=== PATIENT | male | born 1980 | race Caucasian/White ===

== ENCOUNTER 2020-09-20 14:05 | Emergency (ER) | payer OTHER, SELFPAY ==
[2020-09-20 14:07] VITALS: BP 174/111; PULSE 124; RESP 20; TEMP 36.3; O2SAT 99
[2020-09-20 14:15] VITALS: PULSE 125; RESP 23; O2SAT 99
--- NOTE | 2020-09-20 14:27 | ED.URI ---
HPI - URI/Sore Throat General Chief Complaint: Upper Respiratory Infection Stated Complaint: sore throat Time Seen by Provider: 09/20/20 14:26 Source: patient Mode of arrival: ambulatory Limitations: no limitations History of Present Illness HPI Narrative: Patient is a 39-year-old male complaining of a sore throat and a blister on his tongue that started yesterday. Patient states that it hurts to swallow. Denies any lip, tongue, throat swelling. Patient states he is concerned for STD since he is had multiple partners for the past few weeks. Patient denies any chest pain, shortness of breath, abdominal pain, nausea, vomiting, fever, chills or night sweats. Related Data Allergies Allergy/AdvReac Type Severity Reaction Status Date / Time No Known Allergies Allergy Verified 09/20/20 14:15 Review of Systems Review of Systems: All systems reviewed & are unremarkable except as noted in HPI and below PMFSH Past Medical History Medical History Healthy adult Surgical History Surgical History No history of previous surgery Social History Social History Smoking status: Unknown if ever smoked Gender identity (if verbalized by the patient): Male Comments Past medical history: None Social history: Non-smoker no EtOH or drug use Family history: Noncontributory Exam Const: General: no acute distress and alert Orientation/consciousness: patient oriented x3 HENMT: Other: Patent airway. Erythematous swollen oropharyngeal area, tonsillar and uvular swelling. Positive for exudates. Course Vital Signs Vital signs: Vital Signs Temperature 36.3 C L 09/20/20 14:07 Pulse Rate 124 H 09/20/20 14:07 Respiratory Rate 20 09/20/20 14:07 Blood Pressure 174/111 H 09/20/20 14:07 Pulse Oximetry 99 09/20/20 14:07 Temperature 36.3 C L 09/20/20 14:07 Pulse Rate 125 H 09/20/20 14:15 Respiratory Rate 23 H 09/20/20 14:15 Blood Pressure 174/111 H 09/20/20 14:07 Pulse Oximetry 99 09/20/20 14:15 MDM - URI/Sore Throat Lab Data Labs: Strep Screen Presumptive Negative *(Reference Range: Negative)* Discharge Plan Discharge Clinical Impression: Exudative pharyngitis Patient Disposition: Home, Self-Care Condition: Stable Instructions: Pharyngitis (ED) Additional Instructions: Follow-up with your family doctor or the health department for STD testing Prescriptions: New methylprednisolone [Medrol (Edmond)] 4 mg tablets,dose pack See Rx Instructions PO .COMPLEX Qty: 21 RF: 0 penicillin V potassium 500 mg tablet 500 mg PO Q6H 7 Days Qty: 28 RF: 0 Follow-up/Referrals: Jordan Rosario MD [Primary Care Provider] - 09/22/20 Time of Disposition: 15:20
[2020-09-20 15:17] VITALS: BP 127/87; PULSE 130; RESP 29; O2SAT 96
[2020-09-20] MEDS: ACETAMINOPHEN 325 MG TABLET 650 MG PO (15:35)
[2020-09-20 15:46] VITALS: BP 127/87; PULSE 129; RESP 20; TEMP 38.6; O2SAT 98
== END 2020-09-20 15:47 | disposition home or self-care (01) ==
PROVIDERS: Emergency Provider Emergency Medicine; PCP Family Medicine
DX: J02.9 Acute pharyngitis, unspecified (principal)
CPT/HCPCS: 87081; 87147; 87880; 96372; 99283; A9270; J1100

== ENCOUNTER 2020-09-22 18:17 | Emergency (ER) | payer OTHER, SELFPAY ==
--- NOTE | 2020-09-22 18:33 | PC.NURSE ---
PT STATES HE WILL JUST COME BACK LATER WHEN IT'S NOT SO BUSY. I EXPLAINED THAT HE WILL HAVE TO BE REENTERED INTO THE SYSTEM FOR A NEW VISIT. UNDERSTANDING VERBALIZED. PT AMBULATORY FROM THE ED WITH A STEADY GAIT.
== END 2020-09-22 21:37 | disposition left against medical advice (07) ==
PROVIDERS: PCP Family Medicine
DX: Z53.21 Procedure and treatment not carried out due to patient leaving prior to being seen by health care provider (principal)
CPT/HCPCS: 99199

== ENCOUNTER 2020-09-23 11:40 | Emergency (ER) | payer OTHER, SELFPAY ==
--- NOTE | ~2020-09-23 | CT_ITS ---
EXAMINATION: CT soft tissue neck w con EXAM DATE: 09/23/2020 13:59 INDICATION: Sore throat. Peritonsillar abscess. TECHNIQUE: Spiral CT of the neck was performed following intravenous injection of 75 mL Omnipaque 350 . Axial, coronal and sagittal images were reviewed. The dose-length product (DLP) for this examinat ion was 500.93 mGy-cm. The exposure was tailored according to patient size (auto mA exposure control ), and iterative reconstruction (ASIR) was used as additional dose reduction technique. There is no prior study for comparison. FINDINGS: Both tonsils are enlarged and have striated enhancement pattern consistent with tonsillitis . No rim-enhancing drainable abscess identified. The thyroid gland is unremarkable. The submandibu lar and parotid glands are symmetric. There are enlarged bilateral internal jugular chain lymph nod es, largest on the right measuring 2.2 x 1.2 cm. These are probably reactive but clinical follow-up i s indicated. Incidental note made of focal round anterior mediastinal mass measuring 2.3 cm, soft tissue density, could be solid or proteinaceous fluid. It is well-circumscribed and homogeneous in density. Appearanc e more consistent with benign histology but differential diagnosis includes thymic residual, thymic c yst, thymoma, mediastinal teratoma, lymphoma or thymic carcinoma. The airway is unremarkable. Parapharyngeal and pre-glottic fat planes are preserved. The opacifie d vasculature is patent. Epiglottis is normal in thickness. Visualized sinuses and mastoid air cells are well aerated. Lung apices are clear. The bones are unremarkable. IMPRESSION: 1. Incidental well-defined anterior mediastinal mass, more likely benign than malignant finding. Pos sible histologies above. 2. Tonsillitis. No drainable abscess. 3. Cervical lymphadenopathy most likely reactive. Clinical follow-up to resolution. Reviewed, dictated and finalized at location B. IMPRESSION: 1. Incidental well-defined anterior mediastinal mass, more likely benign than malignant finding. Possible histologies above. 2. Tonsillitis. No drainable abscess. 3. Cervical lymphadenopathy most likely reactive. [facility].
[2020-09-23 11:44] VITALS: BP 121/89; PULSE 115; RESP 24; TEMP 37.3; O2SAT 99
[2020-09-23] MEDS: SODIUM CHLORIDE 0.9% IV 1,000 ML 150 ML IV CONT (12:15)
--- NOTE | 2020-09-23 12:41 | WPDCN ---
Assessment and Plan Assessment and plan (1) Exudative pharyngitis: Code(s): J02.9 - Acute pharyngitis, unspecified Status: Inactive Assessment and Plan: Patient must immediately begin antibiotics. I recommended a dose of IV antibiotics well as steroids in the ER. If The patient improves he can go home on p.o. antibiotics. I would recommend and always recommend clindamycin or Augmentin. if the patient is unable to obtain antibiotics which was his previous issue, I would recommend admission for IV antibiotics. 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 Please call with any questions and/or concerns. [phone] (2) Tonsillitis: Code(s): J03.90 - Acute tonsillitis, unspecified Status: Acute HPI Data of Consult Date/Time: 09/23/20 12:41 Primary Care Provider: Jordan Rosario MD Consult Narrative Narrative: Edwin Ruano is a 39 year old male With several days of throat pain. Reports to worsening. Unable to obtain antibiotics from previous ER visit several days ago. Presents for further evaluation treatment. Review of Systems Constitutional: Constitutional: Denies fatigue, Denies fever(s) and Denies lethargy Eyes: Eyes: Denies blurry vision and Denies change in vision ENT: Reports as per HPI Cardiovascular: Cardiovascular: Denies chest pain Respiratory: Respiratory: Denies cough Endocrine: Endocrine: Denies fatigue Hematologic/Lymphatic: Hematologic/Lymphatic: Denies easy bleeding, Denies easy bruising and Denies lymphadenopathy Allergic/Immunologic: Allergic/Immunologic: Denies seasonal rhinorrhea [facility] Past Medical History Medical History Healthy adult Surgical History Surgical History No history of previous surgery Social History Social History Smoking status: Unknown if ever smoked Gender identity (if verbalized by the patient): Male Meds Home Medications and Allergies Home Medications Medication Instructions Recorded Confirmed Type No Home Medications 09/23/20 09/23/20 History Allergies Allergy/AdvReac Type Severity Reaction Status Date / Time No Known Allergies Allergy Verified 09/23/20 11:48 Vital Signs Vital Signs - 24 hr 09/23/20 11:44 Temperature 37.3 C Pulse Rate 115 H Respiratory Rate 24 H Blood Pressure 121/89 Pulse Oximetry 99 Exam Const: General: cooperative, healthy appearing, comfortable, well developed and alert HENMT: Head: normal to inspection, normocephalic and atraumatic Ears: hearing grossly normal bilaterally, external ears normal, TM's normal bilaterally and EAC's normal General nose exam: Normal external nose present, Normal nares present, No nasal polyps present, Normal nasal mucous membranes and turbinates present and Normal septum present Face and sinus: normal facial exam Mouth: Yes Normal oral and palatal mucosa present, Yes lip normal and Yes tongue normal Teeth and gingiva: dentition normal and gingiva normal Other: Bilateral exudate of tonsillitis right soft palate minimal edema peritonsillar region minimal edema when compared to left uvula relatively midline. Eyes: General: appearance normal, both eyes and all related structures Periorbital: periorbital findings normal Eyelids: eyelids normal Conjunctivae: conjunctivae normal Sclera: sclerae normal Neck: Neck: normal visual inspection, full ROM and no lymphadenopathy Thyroid: thyroid normal Lymphatic: no lymphadenopathy noted Resp: Effort & Inspection: normal respiratory effort and able to speak in complete sentences Cardio: Jugular venous distension: no JVD Neuro: Cranial nerves: Yes CN's II-XII intact bilaterally
[2020-09-23 13:00] VITALS: BP 119/81; PULSE 113; RESP 20; O2SAT 98
[2020-09-23 13:47] LABS: Basophils Absolute Auto 0.1 K/mm3 (0.0-0.1); Basophils Percent Auto 0.4 % (0.2-1.2); Eosinophils Absolute Auto 0.1 K/mm3 (0-0.3); Eosinophils Percent Auto 1.1 % (0-4.4); Hematocrit 37.8 % (42.0-52.0); Hemoglobin 12.9 g/dL (14.0-18.0); Immature Granulocyte Absolute 0.06 K/mm3 (0.00-0.031); Immature Granulocyte Percent A 0.5 % (0-0.5); Lymphocytes Absolute Auto 1.92 K/mm3 (0.9-3.2); Lymphocytes Percent Auto 17.2 % (18.3-44.2); Mean Corpuscular HGB Conc 34.1 g/dl (32-36); Mean Corpuscular Hemoglobin 29.1 pg (26-34); Mean Corpuscular Volume 85.1 fl (80-100); Mean Platelet Volume 9.2 fl (7.4-10.4); Monocytes Absolute Auto 0.8 K/mm3 (0.1-0.6); Monocytes Percent Auto 6.8 % (2.6-8.5); Neutrophils Absolute Auto 8.2 K/mm3 (1.3-6.7); Platelet Count Result 233 k/mm3 (150-375); Red Blood Count 4.44 M/mm3 (4.6-6.20); Red Cell Distribution Width 13.1 % (11.5-14.5); White Blood Count 11.1 K/mm3 (4.5-10.0)
[2020-09-23 13:55] LABS: Estimated CRCL calculation 88 ml/min; Estimated Glomerular Filt Rate > 60
[2020-09-23 13:59] LABS: Alanine Aminotransferase 22 U/L (4-50); Albumin Level 3.6 g/dL (3.5-5.1); Alkaline Phosphatase 83 U/L (38-126); Anion Gap 10 mmol/L (8-16); Aspartate Amino Transferase 29 U/L (17-59); Bilirubin,Total 0.4 mg/dL (0.2-1.3); Blood Urea Nitrogen 15 mg/dL (9-20); Calcium 8.6 mg/dL (8.4-10.2); Carbon Dioxide 23 mmol/L (22-30); Chloride 100 mmol/L (98-107); Estimated CRCL calculation 97 ml/min; Estimated Glomerular Filt Rate > 60; Glucose 103 mg/dL (75-110); Potassium 3.5 mmol/L (3.4-5.0); Sodium 133 mmol/L (137-145)
[2020-09-23 14:16] VITALS: BP 129/78; O2SAT 97
[2020-09-23 14:30] VITALS: BP 114/71; O2SAT 98
--- NOTE | 2020-09-23 14:45 | ED.URI ---
HPI - URI/Sore Throat General Chief Complaint: Upper Respiratory Infection Stated Complaint: SORETHROAT Time Seen by Provider: 09/23/20 11:46 Source: patient Mode of arrival: EMS Limitations: no limitations History of Present Illness HPI Narrative: 39-year-old with no major medical problems brought in by ambulance with complaints of sore throat for past few days. Patient was seen here in the ER was diagnosed with strep pharyngitis and was given prescription however patient states that being a long weekend he was unable to fill his medications. He woke up this morning with severe pain. He denies any fever or chills. He is able to tolerate oral fluids. MD elicited complaint: sore throat Onset (ago): day(s) (2) Consistency: constant Severity: moderate Exacerbating factors: nothing Relieving factors: nothing Associated symptoms: denies other symptoms Related Data Home Medications Medication Instructions Recorded Confirmed No Home Medications 09/23/20 09/23/20 Allergies Allergy/AdvReac Type Severity Reaction Status Date / Time No Known Allergies Allergy Verified 09/23/20 11:48 Review of Systems Review of Systems: All systems reviewed & are unremarkable except as noted in HPI and below Constitutional: Constitutional: Reports no additional constitutional complaints Eyes: Eyes: Reports no additional eye complaints ENT: Reports as per HPI Cardiovascular: Cardiovascular: Reports no additional cardiovascular complaints Respiratory: Respiratory: Reports no additional respiratory complaints Gastrointestinal: Gastrointestinal: Reports no additional gastrointestinal complaints Musculoskeletal: Musculoskeletal: Reports no additional musculoskeletal complaints Integumentary/Breasts: Skin/Breast: Reports system reviewed and no additional complaints, except as docu Neurologic: Reports system reviewed and no additional complaints, except as documented PMFSH Past Medical History Medical History Healthy adult Surgical History Surgical History No history of previous surgery Social History Social History Smoking status: Unknown if ever smoked Gender identity (if verbalized by the patient): Male Exam Narrative: Exam Narrative: GENERAL: Well-appearing, well-nourished, and in no acute distress. HEAD: Normocephalic, atraumatic. EYES: PERRLA and EOMI. ENT: Nares clear, no rhinorrhea or epistaxis. Mucous membranes moist. Exudates on tonsils NECK: Supple. Cervical lymphadenopathy CHEST: Clear to auscultation. No respiratory distress. HEART: Regular rate and rhythm. No murmur heard. Normal peripheral pulses. ABDOMEN: Soft, nontender, nondistended, normal active bowel sounds. EXTREMITIES: Normal range of motion. No edema. SKIN: Warm, dry, no rash. NEURO: No focal deficits. Alert and oriented x3. PSYCH: Normal mood and affect. Course Course Emergency Course: Inform patient about his lab work, CT findings. IV Decadron and Rocephin were given in the ER. Patient states that he has prescriptions advised him to get the prescription filled at the pharmacy and start taking return to the ER if he is unable to swallow fluids or if there is increased pain and swelling. Vital Signs Vital signs: Vital Signs Temperature 37.3 C 09/23/20 11:44 Pulse Rate 115 H 09/23/20 11:44 Respiratory Rate 24 H 09/23/20 11:44 Blood Pressure 121/89 09/23/20 11:44 Pulse Oximetry 99 09/23/20 11:44 Temperature 37.3 C 09/23/20 11:44 Pulse Rate 113 H 09/23/20 13:00 Respiratory Rate 20 09/23/20 13:00 Blood Pressure 119/81 09/23/20 13:00 Pulse Oximetry 98 09/23/20 13:00 MDM - URI/Sore Throat Lab Data Result diagrams: 09/23/20 13:36 09/23/20 13:53 Labs: Lab Results 09/23/20 09/23/20 09/23/20 Range/Units 13:36 1
[2020-09-23 15:50] VITALS: BP 120/74; PULSE 78; RESP 18; TEMP 36.4; O2SAT 98
== END 2020-09-23 15:50 | disposition home or self-care (01) ==
PROVIDERS: Emergency Provider Family Medicine; PCP Family Medicine
DX: J03.90 Acute tonsillitis, unspecified (principal)
CPT/HCPCS: 36415; 70491; 80053; 85025; 96361; 96365; 96375; 99284; J0696; J1100; J7030; Q9967

== ENCOUNTER 2021-07-31 14:53 | Emergency (ER) | payer OTHER, SELFPAY ==
--- NOTE | ~2021-07-31 | XR_ITS ---
EXAMINATION: XR hand RT min 3V EXAM DATE: 07/31/2021 15:36 INDICATION: pt states he was digging around in a bag two weeks ago and was poked by an unknown object . pt now has a large sore/abscess on the top of his right hand around the 5th metacarpal area. TECHNIQUE: Right hand frontal, lateral and oblique projections obtained and reviewed. There is no pr ior study for comparison. FINDINGS: Right metacarpal bones are unremarkable. There are no acute fractures or dislocations iden tified. There is no subcutaneous gas. There is soft tissue swelling over the 5th metacarpal bone wit hout any underlying osseous erosion. There are no radiopaque foreign bodies. IMPRESSION: 1. No right hand foreign body or erosive change. 2. Soft tissue swelling. Reviewed, dictated and finalized at location A.
[2021-07-31 14:55] VITALS: BP 183/116; PULSE 102; RESP 18; TEMP 36.8; O2SAT 98
[2021-07-31] MEDS: LIDO 1%/EPINEPHRINE 1:100,000 10 ML VIAL (16:11)
--- NOTE | 2021-07-31 16:28 | ED.GENADULT ---
HPI - General Adult General Chief complaint: Skin/Abscess/Foreign Body Stated complaint: abcess Time Seen by Provider: 07/31/21 15:16 Source: patient Mode of arrival: ambulatory Limitations: no limitations History of Present Illness HPI narrative: Right hand pain and infection. Patient got poked by something inside a bag 2 weeks ago, subsequently started having pain and swelling at that area. Patient is not diabetic. Patient denies any fever, chills, nausea, vomiting. Last tetanus shot is 3 years ago Related Data Allergies Allergy/AdvReac Type Severity Reaction Status Date / Time No Known Allergies Allergy Verified 07/31/21 15:01 Review of Systems Review of Systems: CONSTITUTIONAL: Denies fever, chills, or sweats. EYES: Denies visual changes, redness, or discharge. ENT: Denies rhinorrhea, congestion, sore throat, or otalgia. CARDIOVASCULAR: Denies chest pain, palpitations, or edema. RESPIRATORY: Denies cough or dyspnea. GASTROINTESTINAL: Denies abdominal pain, nausea, vomiting, or diarrhea. GENITOURINARY: Denies dysuria or hematuria. SKIN: Denies rash or itching. MUSCULOSKELETAL: Denies back pain, joint pain, or myalgia. NEUROLOGIC: Denies headache, numbness, or weakness. PSYCHIATRIC: Denies anxiety or depression. PMFSH Past Medical History Medical History Healthy adult Surgical History Surgical History No history of previous surgery Social History Social History Smoking status: Unknown if ever smoked Gender identity (if verbalized by the patient): Male Exam Narrative: General appearance: Well-developed, well-nourished Skin: Normal color Head: Normocephalic, nontraumatic Eyes: Clear conjunctiva ENT: Oropharynx normal, ears normal, nose normal Neck: Supple, nontender Chest and respiratory: Airway patent, no respiratory distress, no accessory muscle use Heart: Regular rate/rhythm Abdomen: Soft, nontender, no organomegaly, quiet bowel sounds Vascular: Normal peripheral pulses, normal capillary refill. 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, no gross motor deficit Course Course Emergency Course: Stable Vital Signs Vital signs: Vital Signs Temperature 36.8 C 07/31/21 14:55 Pulse Rate 102 H 07/31/21 14:55 Respiratory Rate 18 07/31/21 14:55 Blood Pressure 183/116 H 07/31/21 14:55 Pulse Oximetry 98 07/31/21 14:55 Temperature 36.8 C 07/31/21 14:55 Pulse Rate 102 H 07/31/21 14:55 Respiratory Rate 18 07/31/21 14:55 Blood Pressure 183/116 H 07/31/21 14:55 Pulse Oximetry 98 07/31/21 14:55 Procedures Abscess I/D upper extremity: Date of Incision: 07/31/21 Time of Incision: 16:33 Side (if applicable): right Local Anesthetic: lidocaine 1% and with epi Amount of anesthesia used (mL): 2 Technique: incised with #11 blade Amount of fluid expressed (mL): 2 Irrigation: No Packing used?: iodoform I&D Results: Pus and Blood Complications: other (None) Abcess I&D Additional Comments: Culture was obtained Medical Decision Making MDM Narrative Medical decision making narrative: Right hand abscess Vital Signs Vital Signs: Vital Signs Temperature 36.8 C 07/31/21 14:55 Pulse Rate 102 H 07/31/21 14:55 Respiratory Rate 18 07/31/21 14:55 Blood Pressure 183/116 H 07/31/21 14:55 Pulse Oximetry 98 07/31/21 14:55 Temperature 36.8 C 07/31/21 14:55 Pulse Rate 102 H 07/31/21 14:55 Res
== END 2021-07-31 16:38 | disposition home or self-care (01) ==
PROVIDERS: Emergency Provider Emergency Medicine
DX: L02.511 Cutaneous abscess of right hand (principal)
CPT/HCPCS: 10061; 73130; 87070; 87205; 99283

== ENCOUNTER 2021-09-09 23:09 | Emergency (ER) | payer OTHER, SELFPAY ==
[2021-09-09 23:43] VITALS: BP 135/94; PULSE 100; RESP 16; TEMP 36.6; O2SAT 98
[2021-09-10 01:10] VITALS: BP 140/94; PULSE 87; RESP 16; O2SAT 99
--- NOTE | 2021-09-10 01:25 | ED.RECABL ---
HPI - Recheck/Abnormal Lab/Rx General Chief Complaint: Recheck/Abnormal Lab/Rx Stated Complaint: earache and htn Time Seen by Provider: 09/10/21 01:20 History of Present Illness HPI narrative: Patient states that he had gone to multiple [employer] [facility] pharmacies and checked his blood pressure and it was high in the 180s, he has no primary care doctor, his family was concerned and wanted him to come to the hospital. He denies any symptoms, other than he has some left ear pain for the last 2 days, no fevers or chills. He was able to clean the ear out with Debrox, has not put anything else in his ear. No chest pain, difficulty breathing, abdominal pain, nausea or vomiting, headache or blurred vision. Related Data Allergies Allergy/AdvReac Type Severity Reaction Status Date / Time No Known Allergies Allergy Verified 09/10/21 01:30 Review of Systems Review of Systems: CONST: No fever. HEAD: No trauma EYES: No blurry vision ENT: Ear pain C/V: No chest pain RESP: No cough GI: No abdominal pain M/S: No joint pain. SKIN: No rash. NEURO: [No headache or focal numbness or weakness] PSYCH: [No depression] [facility] Past Medical History Medical History Healthy adult Surgical History Surgical History No history of previous surgery Social History Social History Smoking status: Unknown if ever smoked Gender identity (if verbalized by the patient): Male Exam Narrative: EXAMINATION OF ORGAN SYSTEMS/BODY AREAS: Constitutional: Vital signs per nursing GENERAL:[No acute distress, non-toxic appearing.] HEAD: Normal with no signs of head trauma. EYES: EOMI, conjunctiva normal ENT: Hearing grossly intact; no cerumen impaction, left ear TM does appear dull LUNGS: Nonlabored breathing. HEART: [Regular rate and rhythm] ABD: [Soft], [nontender to palpation] EXT: Normal range of motion SKIN: [No rashes or lesions.] NEURO: [Alert and oriented x 3. No gross focal sensory or strength deficits.] PSYCH: Normal affect Course Course Emergency Course: 40-year-old male presenting with asymptomatic hypertension, also left ear pain, he is very well-appearing on exam, left TM does appear slightly bulging and, given his symptoms I will give him a short course of antibiotics for possible AOM, he should follow-up with a PCP, information is given to him and I will give him a short prescription for antihypertensives. Can return for any further issues. Vital Signs Vital signs: Vital Signs Temperature 98 F 09/09/21 23:43 Pulse Rate 100 09/09/21 23:43 Respiratory Rate 16 09/09/21 23:43 Blood Pressure 135/94 H 09/09/21 23:43 Pulse Oximetry 98 09/09/21 23:43 Temperature 98 F 09/09/21 23:43 Pulse Rate 97 09/10/21 02:15 Respiratory Rate 27 H 09/10/21 02:15 Blood Pressure 134/99 H 09/10/21 02:15 Pulse Oximetry 95 09/10/21 02:15 Discharge Plan Discharge Clinical Impression: Borderline high blood pressure, Ear pain, left Patient Disposition: Home, Self-Care Condition: Stable Instructions: Antibiotic Form, Earache (ED), Hypertension (ED) Prescriptions: New amlodipine 2.5 mg tablet 2.5 mg PO DAILY Qty: 30 RF: 0 amoxicillin-pot clavulanate 875-125 mg tablet 1 tablet PO Q12H Qty: 10 RF: 0 No Action clindamycin HCl [Cleocin HCl] 300 mg capsule 300 mg PO Q6H Qty: 40 RF: 0 Follow-up/Referrals: Jordan Rosario MD [Physician] - 2 Days PHYSICIAN,PRODUCT ARCHITECT [Primary Care Provider] -
[2021-09-10 01:26] VITALS: BP 145/103; PULSE 90; RESP 24; O2SAT 96
[2021-09-10 02:15] VITALS: BP 134/99; PULSE 97; RESP 27; O2SAT 95
== END 2021-09-10 02:15 | disposition home or self-care (01) ==
LOC: ANHED 09-10 01:35
PROVIDERS: Emergency Provider Emergency Medicine
DX: H92.02 Otalgia, left ear (principal); R03.0 Elevated blood-pressure reading, without diagnosis of hypertension
CPT/HCPCS: 99283

== ENCOUNTER 2022-02-11 18:05 | Emergency (ER) | payer OTHER, SELFPAY ==
--- NOTE | ~2022-02-11 | CT_ITS ---
EXAMINATION: CT brain wo con DATE: 02/11/2022 18:16 INDICATION: Left hemiparesis. Slurred speech. TECHNIQUE: Computed tomography (CT) of the head was performed without intravenous contrast. The mA wa s adjusted according to patient size. Iterative reconstruction technique was employed. The dose-lengt h product was 605.33 mGy-cm. COMPARISON: None FINDINGS: There is no intracranial hemorrhage, acute infarction, or abnormal intracranial mass lesion . The ventricles are normal in size. The orbits are normal. The paranasal sinuses are clear. The mast oid air cells are normal. IMPRESSION: 1. Normal brain. I called this result to Dr. Schulte. Reviewed, dictated and finalized at location A.
--- NOTE | ~2022-02-11 | XR_ITS ---
EXAMINATION: XR shoulder LT min 2V DATE: 02/11/2022 19:58 INDICATION: Left shoulder pain. TECHNIQUE: 4 views of left shoulder were obtained. COMPARISON: None. FINDINGS: Bone alignment is normal. No fracture. Glenohumeral joint is normal. There is mild acromioc lavicular joint osteoarthritis. IMPRESSION: 1. Mild left acromioclavicular joint osteoarthritis. Reviewed, dictated and finalized at location A.
--- NOTE | ~2022-02-11 | XR_ITS ---
EXAMINATION: XR chest 1V portable DATE: 02/11/2022 18:42 INDICATION: Stroke. TECHNIQUE: A single frontal view of the chest was obtained. COMPARISON: None. FINDINGS: The chest demonstrates clear lungs without pneumonia, pleural effusion, or pneumothorax. Th e heart size is normal. IMPRESSION: 1. No acute cardiopulmonary disease. Reviewed, dictated and finalized at location A.
--- NOTE | 2022-02-11 18:09 | ECG_ITS ---
Measurements Intervals Reading Rate: 112 P: DC: 0 QRS: 83 QRSD: 104 T: 47 QT: 334 QTc: 458 Interpretive Statements SINUS TACHYCARDIA POOR R-WAVE PROGRESSION INCOMPLETE RIGHT BUNDLE BRANCH BLOCK [90+ ms QRS DURATION, TERMINAL R IN V1/V2, 40+ ms S IN I/aVL/V4/V5/V6] ABNORMAL RHYTHM ECG NO PREVIOUS ECG AVAILABLE FOR COMPARISON Electronically Signed On 02-12-2022 13:54:32 CDT by Poncho Faith M.D.
[2022-02-11 18:14] LABS: Glucose Point of Care 124 mg/dl (65-105)
[2022-02-11 18:40] VITALS: BP 159/111; PULSE 105; RESP 18; TEMP 36.7; O2SAT 97
[2022-02-11 18:47] LABS: Basophils Absolute Auto 0.1 K/mm3 (0.0-0.1); Basophils Percent Auto 0.9 % (0.2-1.2); Eosinophils Absolute Auto 0.4 K/mm3 (0-0.3); Eosinophils Percent Auto 4.1 % (0-4.4); Hematocrit 45.6 % (42.0-52.0); Hemoglobin 15.6 g/dL (14.0-18.0); Immature Granulocyte Absolute 0.02 K/mm3 (0.00-0.031); Immature Granulocyte Percent A 0.2 % (0-0.5); Lymphocytes Percent Auto 31.6 % (18.3-44.2); Mean Corpuscular HGB Conc 34.2 g/dl (32-36); Mean Corpuscular Hemoglobin 29.6 pg (26-34); Mean Corpuscular Volume 86.5 fl (80-100); Mean Platelet Volume 8.9 fl (7.4-10.4); Monocytes Absolute Auto 0.7 K/mm3 (0.1-0.6); Monocytes Percent Auto 7.8 % (2.6-8.5); Neutrophils Absolute Auto 4.7 K/mm3 (1.3-6.7); Neutrophils Percent Auto 55.4 % (45.5-73.1); Platelet Count Result 285 k/mm3 (150-375); Red Blood Count 5.27 M/mm3 (4.6-6.20); Red Cell Distribution Width 12.9 % (11.5-14.5); White Blood Count 8.6 K/mm3 (4.5-10.0)
[2022-02-11 18:57] LABS: Alanine Aminotransferase 25 U/L (6-50); Albumin Level 4.3 g/dL (3.5-5.1); Alkaline Phosphatase 97 U/L (38-126); Anion Gap 9 mmol/L (8-16); Aspartate Amino Transferase 22 U/L (17-59); Bilirubin,Total 0.4 mg/dL (0.2-1.3); Blood Urea Nitrogen 14 mg/dL (9-20); Calcium 8.9 mg/dL (8.4-10.2); Carbon Dioxide 27 mmol/L (22-30); Chloride 104 mmol/L (98-107); Estimated CRCL calculation 99 ml/min; Estimated Glomerular Filt Rate > 60; Glucose 125 mg/dL (65-110); Potassium 3.7 mmol/L (3.4-5.0); Sodium 140 mmol/L (137-145)
[2022-02-11 18:59] LABS: INR 0.9; Prothrombin Time 12.1 Seconds (11.1-14.7)
[2022-02-11 19:00] LABS: Partial Thromboplastin Time 30.2 SECONDS (22.3-36.8)
[2022-02-11] MEDS: SODIUM CHLORIDE 0.9% IV 1,000 ML 999 ML IV CONT (19:04)
[2022-02-11 19:09] VITALS: BP 151/106; PULSE 103; PULSE 106; RESP 20; O2SAT 97
[2022-02-11 19:09] LABS: Troponin I < 0.012 ng/mL (0.000-0.034)
--- NOTE | 2022-02-11 19:20 | ED.NEUROSD ---
HPI - Neuro Symptoms/Deficit General Chief Complaint: Suspected CVA Stated Complaint: slurred speech facial droop yesterday morning Time Seen by Provider: 02/11/22 18:20 History of Present Illness HPI Narrative: Patient is a 41-year-old male who presents ER with right-sided facial droop. Symptoms began yesterday. Worsened today. He cannot move his forehead or his mouth or close his eye fully. No additional numbness or weakness anywhere. Denies recent viral syndrome. No chest pain or chest pressure. Food and water fall out of his mouth. Patient also reports some chronic left shoulder pain since injury last month. Has pain with sleeping on it and with movements over the deltoid. No swelling. No numbness or tingling. Related Data Allergies Allergy/AdvReac Type Severity Reaction Status Date / Time No Known Allergies Allergy Verified 02/11/22 18:46 Review of Systems Review of Systems: All systems reviewed & are unremarkable except as noted in HPI and below Constitutional: Constitutional: Denies chills, Denies fever(s) and Denies headache(s) ENT: Denies nasal congestion, Denies sore throat and Denies throat swelling Cardiovascular: Cardiovascular: Denies chest pain, Denies rapid heart rate and Denies radiating jaw, neck or arm pain Respiratory: Respiratory: Denies cough, Denies dyspnea and Denies wheezing Gastrointestinal: Gastrointestinal: Denies abdominal pain, Denies nausea and Denies vomiting Integumentary/Breasts: Skin/Breast: Denies erythema and Denies rash Neurologic: Denies Abnormal speech present, Denies dizziness, Denies headache(s) and Reports focal weakness PMFSH Past Medical History Medical History Healthy adult Surgical History Surgical History No history of previous surgery Social History Social History (Updated 02/11/22 @ 19:24 by Ángel Schulte MD) Smoking status: Current every day smoker Gender identity (if verbalized by the patient): Male Exam Narrative: GENERAL: Well-appearing, well-nourished, and in no acute distress. HEAD: Normocephalic, atraumatic. EYES: PERRL and EOMI. ENT: Mucous membranes moist. CHEST: Clear to auscultation. No respiratory distress. HEART: Regular rate and rhythm. Normal peripheral pulses.. EXTREMITIES: Left shoulder without reproducible tenderness with normal range of motion active and passive. Other extremities unremarkable. SKIN: Warm, dry, no rash. NEURO: Right-sided facial weakness, unable to furl the brow. Cannot close right eye fully. Alert and oriented x3. PSYCH: Normal mood and affect. Course Course Emergency Course: Exam consistent with Ruiz's palsy. Discussed treatment plan and patient verbalized understanding. We will give Ortho referral for possible frozen shoulder. Vital Signs Vital signs: Vital Signs Temperature 98.0 F 02/11/22 18:40 Pulse Rate 105 H 02/11/22 18:40 Respiratory Rate 18 02/11/22 18:40 Blood Pressure 159/111 H 02/11/22 18:40 Pulse Oximetry 97 02/11/22 18:40 Oxygen Delivery Room Air 02/11/22 18:40 Temperature 98.0 F 02/11/22 18:40 Pulse Rate 97 02/11/22 20:50 Respiratory Rate 18 02/11/22 20:50 Blood Pressure 150/98 H 02/11/22 20:50 Pulse Oximetry 99 02/11/22 20:50 Oxygen Delivery Room Air 02/11/22 18:40 MDM - Neuro Symptoms/Deficit Lab Data Result diagrams: 02/11/22 18:42 02/11/22 18:42 Labs: Lab Results 02/11/22 02/11/22 02/11/22 Range/Units 18:10 18:42 18:42 WBC 8.6 (4.5-10.0) K/mm3 RBC 5.27 (4.6-6.20) M/mm3 Hgb 15.6 (14.0-18.0) g/dL Hct 45.6 (42.0-52.0) % MCV 86.5 (80-100) fl MCH 29.6 (26-34) pg MCHC 34.2 (32-36) g/dl RDW 12.9 (11.5-14.5) % Plt Count 285 (150-375) k/mm3 MPV 8.9 (7.4-10.4) fl Immature Gran % (Auto) 0.2 (0-0.5) % Neut % (Auto) 55.4 (45.5-73.1) % L
[2022-02-11 19:35] VITALS: BP 153/98; PULSE 102; RESP 18; O2SAT 97
[2022-02-11] MEDS: predniSONE 20 MG TABLET 60 MG PO (19:35)
--- NOTE | 2022-02-11 19:50 | PC.NURSE ---
Pt to radiology via w/c at this time.
[2022-02-11] MEDS: valACYclovir HCL 500 MG TABLET 1000 MG PO (20:05)
[2022-02-11 20:06] VITALS: PULSE 95; RESP 19; O2SAT 99
[2022-02-11 20:50] VITALS: BP 150/98; PULSE 97; RESP 18; O2SAT 99
== END 2022-02-11 21:11 | disposition home or self-care (01) ==
PROVIDERS: Emergency Provider Emergency Medicine
DX: G51.0 Bell's palsy (principal); M19.012 Primary osteoarthritis, left shoulder; R00.0 Tachycardia, unspecified; I45.10 Unspecified right bundle-branch block; F17.200 Nicotine dependence, unspecified, uncomplicated
CPT/HCPCS: 36415; 70450; 71045; 73030; 80053; 82948; 84484; 85025; 85610; 85730; 93005; 96360; 99284; A9270; J7030; J7512

== ENCOUNTER 2023-10-16 03:41 | Inpatient (IN) | payer OTHER, SELFPAY ==
[2023-10-16] VITALS (7 sets, daily range): BP systolic 117–144; BP diastolic 77–98; PULSE 91–129; RESP 16–20; TEMP 36.4–36.9; O2SAT 93–98; BMI 34.5
--- NOTE | ~2023-10-16 | XR_ITS ---
EXAMINATION: XR tibia fibula RT 2V DATE: 10/16/2023 05:50 INDICATION: Right lower leg pain and swelling TECHNIQUE: Anteroposterior and lateral views of the right tibia and fibula were obtained. COMPARISON: None. FINDINGS: Bone alignment is normal. No fracture. Joint spaces are normal. Small Achilles calcaneal spur. Diffus e mild soft tissue swelling with subcutaneous edema about the lower leg. IMPRESSION: 1. No acute osseous abnormality. Reviewed, dictated and finalized at location A.
--- NOTE | ~2023-10-16 | US_ITS ---
EXAMINATION: US venous doppler LE RT DATE: 10/20/2023 17:04 INDICATION: leg pain, redness, swelling, DVT? . TECHNIQUE: Grayscale images without and with compression and Doppler images of the right lower extrem ity veins were obtained. COMPARISON: None FINDINGS: The right common femoral vein, profunda (deep) femoral vein, femoral vein, popliteal vein, peroneal v ein, posterior tibial veins, and greater saphenous vein are patent. IMPRESSION: Patent right lower extremity veins. No evidence of deep venous thrombosis. Reviewed, dictated and finalized at location K.
--- NOTE | ~2023-10-16 | CT_ITS ---
EXAMINATION: CT LE RT w con DATE: 10/21/2023 08:39 INDICATION: Right leg abscess. Cellulitis. TECHNIQUE: Computed tomography (CT) of the right lower limb was performed with 100 mL Omnipaque 350 i ntravenous contrast. Automated exposure control and iterative reconstruction technique were employed. The dose-length product was 1001.92 mGy-cm. COMPARISON: CT 10/17/2023, ultrasound 10/20/2023 FINDINGS: Bone alignment is normal. No fracture. There is mild right knee osteoarthritis. No knee aidan nt effusion. Achilles tendinopathy is noted. There is subcutaneous edema in the lower leg. There are skin defects in the lower leg. There is subcutaneous packing material in the posterior lower leg. The re is trace fluid adjacent to the packing material. IMPRESSION: 1. Subcutaneous packing material in the lower leg with trace fluid adjacent to the packing material. Reviewed, dictated and finalized at location A.
--- NOTE | ~2023-10-16 | CT_ITS ---
Procedure: CT LE RT wo con Ordering provider: Airam Cartagena MD History: . need to rule out necrotizing fasciitis . Comparison: None. Technique: Thin slice axial CT of the No IV contrast was given. Sagittal and coronal reformatted imag es were also obtained and reviewed. The dose-length product was 1392.79 mGy-cm. Findings: BONES: No fracture or dislocation. JOINT SPACES: Normal. SOFT TISSUES: Fat stranding is seen in the subcutaneous tissues. Minimal collection is seen laterally with no definite abscess formation. No evidence of necrotizing fasciitis. Follow-up advised. IMPRESSION: Fat stranding is seen in the subcutaneous tissues. Minimal collection is seen laterally with no defin ite abscess formation. No evidence of necrotizing fasciitis. Follow-up advised. Reviewed, dictated and finalized at location A. IMPRESSION: Fat stranding is seen in the subcutaneous tissues. Minimal collection is seen l aterally with no definite abscess formation. No evidence of necrotizing fasciit is. Follow-up advised.
[2023-10-16] MEDS: ONDANSETRON INJ 4 MG/2 ML VIAL IV PUSH (06:09)
[2023-10-16] MEDS: KETOROLAC 15 MG/ML VIAL (*BKC) IV PUSH (06:09)
[2023-10-16] MEDS: SODIUM CHLORIDE 0.9% IV 1,000 ML 999 ML IV CONT (06:09)
[2023-10-16] MEDS: CLINDAMYCIN 600 MG/D5W 50 ML 600 MG/50 ML PIGGYBACK 100 MG IVPB ×3 (06:11→21:29)
[2023-10-16 06:22] LABS: Basophils Absolute Auto 0.1 K/mm3 (0.0-0.1); Basophils Percent Auto 0.3 % (0.2-1.2); Eosinophils Percent Auto 0.1 % (0-4.4); Hematocrit 49.4 % (42.0-52.0); Immature Granulocyte Absolute 0.11 K/mm3 (0.00-0.031); Immature Granulocyte Percent A 0.6 % (0-0.5); Lymphocytes Absolute Auto 1.21 K/mm3 (0.9-3.2); Lymphocytes Percent Auto 6.9 % (18.3-44.2); Mean Corpuscular HGB Conc 34.4 g/dl (32-36); Mean Corpuscular Hemoglobin 29.5 pg (26-34); Mean Corpuscular Volume 85.8 fl (80-100); Mean Platelet Volume 9.3 fl (7.4-10.4); Monocytes Absolute Auto 0.8 K/mm3 (0.1-0.6); Monocytes Percent Auto 4.7 % (2.6-8.5); Neutrophils Absolute Auto 15.3 K/mm3 (1.3-6.7); Neutrophils Percent Auto 87.4 % (45.5-73.1); Platelet Count Result 258 k/mm3 (150-375); Red Blood Count 5.76 M/mm3 (4.6-6.20); Red Cell Distribution Width 13.3 % (11.5-14.5); White Blood Count 17.5 K/mm3 (4.5-10.0)
--- NOTE | 2023-10-16 06:23 | ED.GENADULT ---
HPI - General Adult General Chief complaint: Animal Bite Stated complaint: Insect bite to right leg Time Seen by Provider: 10/16/23 05:28 History of Present Illness HPI narrative: Patient is a 42-year-old gentleman who presents emergency department chief complaint of wound to the right calf. Patient reports he felt as though he got bit by something in his calf noticed the area became red noticed small blackened area patient reports was some drainage from this area patient reports no fever does report there is warmth to the affected area patient reports he is not a diabetic. Related Data Allergies Allergy/AdvReac Type Severity Reaction Status Date / Time No Known Allergies Allergy Verified 02/11/22 18:46 Review of Systems Review of Systems: A 10 system review of systems was completed on the patient and is negative except for what is stated in the HPI. Nursing and ancillary documentation was reviewed. [facility] Past Medical History Medical History Healthy adult Surgical History Surgical History No history of previous surgery Social History Social History Smoking status: Current every day smoker Gender identity (if verbalized by the patient): Male Exam Narrative: GENERAL: Well-appearing, well-nourished, and in no acute distress. HEAD: Normocephalic, atraumatic. EYES: PERRLA and EOMI. ENT: Nares clear, no rhinorrhea or epistaxis. Mucous membranes moist. NECK: Supple. CHEST: Clear to auscultation. No respiratory distress. HEART: Regular rate and rhythm. No murmur heard. Normal peripheral pulses. ABDOMEN: Soft, nontender, nondistended, normal active bowel sounds. EXTREMITIES: Normal range of motion. No edema. There is erythema to the posterior right calf there is a small dime-sized wound SKIN: Warm, dry, no rash. NEURO: No focal deficits. Alert and oriented x3. PSYCH: Normal mood and affect. Course Vital Signs Vital signs: Vital Signs Temperature 36.9 C 10/16/23 03:44 Pulse Rate 122 H 10/16/23 03:44 Respiratory Rate 16 10/16/23 03:44 Blood Pressure 130/89 10/16/23 03:44 Pulse Oximetry 94 10/16/23 03:44 Oxygen Delivery Room Air 10/16/23 03:44 Temperature 36.9 C 10/16/23 03:44 Pulse Rate 129 H 10/16/23 07:02 Respiratory Rate 17 10/16/23 06:48 Blood Pressure 121/80 10/16/23 06:48 Pulse Oximetry 95 10/16/23 06:48 Oxygen Delivery Room Air 10/16/23 03:44 Medical Decision Making [facility] Narrative Medical decision making narrative: Differential diagnosis includes sepsis, cellulitis, Blood cultures were obtained on the patient laboratory studies were obtained patient had a white count of 17.5. Blood cultures were obtained the patient was started on clindamycin in the emergency department Plain film x-rays of the right tib-fib showed no evidence of subcutaneous gas Given leukocytosis tachycardia case was discussed the hospitalist the hospitalist requested Unasyn be added on top of the clindamycin and the patient will receive further care in the inpatient setting Vital Signs Vital Signs: Vital Signs Temperature 36.9 C 10/16/23 03:44 Pulse Rate 122 H 10/16/23 03:44 Respiratory Rate 16 10/16/23 03:44 Blood Pressure 130/89 10/16/23 03:44 Pulse Oximetry 94 10/16/23 03:44 Oxygen Delivery Room Air 10/16/23 03:44 Temperature 36.9 C 10/16/23 03:44 Pulse Rate 129 H 10/16/23 07:02 Respiratory Rate 17 10/16/23 06:48 Blood Pressure 121/80 10/16/23 06:48 Pulse Oximetry 95 10/16/23 06:48 Oxygen Delivery Room Air 10/16/23 03:44 Lab Data 10/16/23 06:08 10/16/23 06:08 Labs: Lab Results 10/16/23 Range/Units 06:08 WBC 17.5 H (4.5-10.0) K/mm3 RBC 5.76 (4.6-6.20) M/mm3 Hgb 17.0 (14.0-18.0) g
[2023-10-16 06:32] LABS: Alanine Aminotransferase 28 U/L (6-50); Albumin Level 4.6 g/dL (3.5-5.1); Alkaline Phosphatase 113 U/L (38-126); Anion Gap 7 mmol/L (4-12); Aspartate Amino Transferase 23 U/L (17-59); Bilirubin,Total 0.9 mg/dL (0.2-1.3); Blood Urea Nitrogen 15 mg/dL (9-20); Calcium 8.9 mg/dL (8.4-10.2); Carbon Dioxide 27 mmol/L (22-30); Chloride 101 mmol/L (98-107); Estimated CRCL calculation 80 ml/min; Estimated Glomerular Filt Rate > 60; Glucose 119 mg/dL (65-110); Lactic Acid Reflex 1.5 mmol/L (0.7-2.0); Sodium 135 mmol/L (137-145)
[2023-10-16 06:48] LABS: Procalcitonin 0.2 ng/mL
[2023-10-16] MEDS: AMPICILLIN SULB 3 GM/NS 100 ML 3 GM/100 ML VIAL IVPB ×3 (07:42→17:27)
[2023-10-16 07:49] LABS: Appearance Urine Clear (Clear); Bacteria Urine None Seen /hpf; Bilirubin Urine Negative (Negative); Blood Urine Negative (Negative); Color Urine Dark Yellow (Yellow); Glucose Urine UA Negative (Negative); Ketones Urine Trace mg/dL (Negative); Leukocyte Esterase Ur Negative LEU/UL (Negative); Nitrate Urine Negative (Negative); Non Pathogenic Casts 0-2; Protein Urine Trace mg/dL (Negative); RBC Urine 0-2 /hpf (0-2); Specific Grav Ur 1.027 (1.001-1.035); Squamous Epithelial Cell Urine None Seen /hpf (Few); WBC Urine 0-5 /hpf (0-3); pH Urine 5.5 (5.0-9.0)
[2023-10-16 07:53] LABS: Add Urine Microscopic? YES
--- NOTE | 2023-10-16 08:09 | PM.IMHP ---
H&P: HPI History of Present Illness Date/Time: 10/16/23 08:09 Chief Complaint: Redness, swelling, tender and pus drainage of right lower extremity Narrative: 42 years trending present ED with a chief complaint of redness, swelling, pain and pus drainage from right lower extremity. Patient got a insect bite on the right calf of right leg few days ago, and developed some redness, swelling and pain yesterday patient noticed some pus drainage from the area. Patient denies headache, photophobia, nausea vomiting diarrhea, dysuria. Patient has chills subjective fever. Upon arrival in ED, patient has tachycardia tachypnea, leukocytosis 17,500, x-ray does not show gas or acute bone abnormality. Patient received Unasyn and clindamycin in the ED. We admit patient for evaluation treatment Review of Systems Review of Systems: ROS negative except above PMFSH Past Medical History Medical History Healthy adult Surgical History Surgical History No history of previous surgery Social History Social History Smoking status: Current every day smoker Alcohol intake: never Substance use: unknown Do You Feel Safe in your Home?: Yes Lack of Transportation: No Lack of Food: Sometimes True Current Housing: I Have Housing Concerned About Future Housing: YES Difficulty Paying Gas/Electric Bills: YES Difficulty Paying for Meds: No Currently Unemployed: YES Education: High School Diploma/GED Difficulty w/ Childcare or Family Care: No Gender identity (if verbalized by the patient): Male Spiritual care concerns: Yes Meds Home Medications and Allergies Home Medications Medication Instructions Recorded Confirmed Type clindamycin HCl 300 mg capsule 300 mg PO Q6H #40 caps 07/31/21 Rx (Cleocin HCl) amlodipine 2.5 mg tablet 2.5 mg PO DAILY #30 tabs 09/10/21 Rx amoxicillin 875 mg-potassium 1 tablet PO Q12H #10 tabs 09/10/21 Rx clavulanate 125 mg tablet prednisone 20 mg tablet 60 mg PO DAILY 7 days #21 tabs 02/11/22 Rx valacyclovir 1 gram tablet 1,000 mg PO TID #21 tabs 02/11/22 Rx Allergies Allergy/AdvReac Type Severity Reaction Status Date / Time No Known Allergies Allergy Verified 02/11/22 18:46 Vital Signs Vital Signs - 24 hr 10/16/23 03:44 10/16/23 06:48 10/16/23 07:02 Temperature 98.5 F Pulse Rate 122 H 91 129 H Respiratory Rate 16 17 Blood Pressure 130/89 121/80 Pulse Oximetry 94 95 Oxygen Delivery Room Air Exam Narrative: GENERAL: Pleasant, in no acute distress. Well-nourished. - EYES: EOMI. Anicteric. - HENT: Moist mucous membranes. - LUNGS: Clear to auscultation bilaterally, no wheezing, rhonchi, or rales. - CARDIOVASCULAR: Regular rate and rhythm. No murmur. No JVD. - ABDOMEN: Soft, non-tender and non-distended. No palpable masses. - EXTREMITIES: - ve edema. Peripheral pulses 2+. Non-tender. - NEUROLOGIC: No focal neurological deficits. CN II-XII grossly intact. - PSYCHIATRIC: Awake, Alert and oriented x 3. Appropriate mood and affect. - SKIN: Redness tender, swelling of right lower extremity over the calf and pus drainage - LYMPH: No cervical lymphadenopathy. H&P: Results Labs Labs: Short CBC 10/16/23 Range/Units 06:08 WBC 17.5 H (4.5-10.0) K/mm3 Hgb 17.0 (14.0-18.0) g/dL Hct 49.4 (42.0-52.0) % Plt Count 258 (150-375) k/mm3 BMP 10/16/23 06:08 Sodium 135 L Potassium 4.0 Chloride 101 Carbon Dioxide 27 BUN 15 Creatinine 1.20 Glucose 119 H Calcium 8.9 Liver Function 10/16/23 Range/Units 06:08 Total Bilirubin 0.9 (0.2-1.3) mg/dL AST 23 (17-59) U/L ALT 28 (6-50) U/L Alkaline Phosphatase 113 (38-126) U/L Albumin 4.6 (3.5-5.1) g/dL Urine 10/16/23 Range/Units 07:03 Urine Color Dark y
--- NOTE | 2023-10-16 10:53 | ADMGEN ---
This patient, Edwin Ruano, was admitted to Virtual Bed 3rd Floor-1 @ 1053. Patient/family oriented to hospital policies and general routines including ID bracelet, bed and alarms, visiting hours, pain management, procedures, bathroom and other care routines, personal items, smoking policy, room service/diet, and visiting hours. Information on how to activate the Rapid Response Team has been discussed. Patient/Family are encouraged to report perceived risks to care and to ask questions if they do not understand what they are told or what they should do.
[2023-10-16] MEDS: SODIUM CHLORIDE 0.9% IV 1,000 ML 150 ML IV CONT ×2 (11:15→20:15)
[2023-10-16] MEDS: oxyCODONE/ACETAMINOPHEN (*CRX) 5-325 MG TABLET 1 TABLET PO ×3 (11:21→21:28)
[2023-10-16] MEDS: ENOXAPARIN 40 MG/0.4 ML SYRINGE SUB-Q (11:26)
--- NOTE | 2023-10-16 20:43 | ECG_ITS ---
Test Date: 2023-10-16 21:00:48 Measurements Intervals [place] Rate: 123 P: 0 SC: 0 QRS: 65 QRSD: 112 T: 38 QT: 322 QTc: 461 Interpretive Statements SINUS TACHYCARDIA INCOMPLETE RIGHT BUNDLE BRANCH BLOCK [90+ ms QRS DURATION, TERMINAL R IN V1/V2, 40+ ms S IN I/aVL/V4/V5/V6] BORDERLINE ECG No previous ECG available for comparison Electronically Signed On 10-17-2023 07:26:29 CDT by Poncho Faith M.D.
--- NOTE | 2023-10-16 21:35 | PM.EVENT ---
Event Note Event Note Event Note: Cross Coverage Note: Patient met Sepsis Criteria (HR, WBC) during initial presentation. Given 1L bolus yesterday in the ED. Remains tachycardiac in the 120's for majority of the day. EKG reviewed, P-wave clearly visible. Will complete the 30 mL/kg, LR bolus x2 added.
[2023-10-16] MEDS: LACTATED RINGERS 1,000 ML 999 ML IV CONT ×2 (22:30→22:45)
[2023-10-17] VITALS (10 sets, daily range): BP systolic 126–138; BP diastolic 76–102; PULSE 98–129; RESP 18–22; TEMP 36.7–37.2; O2SAT 90–100
[2023-10-17] MEDS: oxyCODONE/ACETAMINOPHEN (*CRX) 5-325 MG TABLET 1 TABLET PO ×4 (03:14→21:06)
[2023-10-17] MEDS: HYDROmorphone HCL INJ (*CRX) 1 MG/ML SYR IV PUSH ×2 (03:48→08:07)
[2023-10-17] MEDS: VANCOMYCIN 1,500 MG/NS 500 ML 1,500 MG/500 ML BAG 250 MG IVPB ×2 (05:02→16:09)
[2023-10-17 06:36] LABS: Basophils Absolute Auto 0.1 K/mm3 (0.0-0.1); Basophils Percent Auto 0.4 % (0.2-1.2); Eosinophils Absolute Auto 0.1 K/mm3 (0-0.3); Eosinophils Percent Auto 0.2 % (0-4.4); Hematocrit 41.6 % (42.0-52.0); Hemoglobin 13.7 g/dL (14.0-18.0); Lymphocytes Absolute Auto 1.69 K/mm3 (0.9-3.2); Lymphocytes Percent Auto 8.4 % (18.3-44.2); Mean Corpuscular HGB Conc 32.9 g/dl (32-36); Mean Corpuscular Volume 87.9 fl (80-100); Mean Platelet Volume 9.5 fl (7.4-10.4); Monocytes Absolute Auto 1.1 K/mm3 (0.1-0.6); Monocytes Percent Auto 5.5 % (2.6-8.5); Neutrophils Absolute Auto 17.1 K/mm3 (1.3-6.7); Neutrophils Percent Auto 84.5 % (45.5-73.1); Platelet Count Result 223 k/mm3 (150-375); Red Blood Count 4.73 M/mm3 (4.6-6.20); Red Cell Distribution Width 13.2 % (11.5-14.5); White Blood Count 20.2 K/mm3 (4.5-10.0)
[2023-10-17 06:44] LABS: Anion Gap 5 mmol/L (4-12); Blood Urea Nitrogen 14 mg/dL (9-20); Calcium 8.2 mg/dL (8.4-10.2); Carbon Dioxide 25 mmol/L (22-30); Chloride 103 mmol/L (98-107); Estimated CRCL calculation 95 ml/min; Estimated Glomerular Filt Rate > 60; Glucose 103 mg/dL (65-110); Potassium 3.5 mmol/L (3.4-5.0); Sodium 133 mmol/L (137-145)
--- NOTE | 2023-10-17 07:56 | PM.IMPN ---
Progress Note: A&P Assessment and Plan (1) Cellulitis of right leg: Code(s): L03.115 - Cellulitis of right lower limb Status: Acute (2) Sepsis: Code(s): A41.9 - Sepsis, unspecified organism Status: Acute Plan Cellulitis of right lower extremity Secondary to insect bite pt is on vancomycin, clindamycin the Unasyn IV pt has worse leg swelling, skin is tight continue vancomycin clindamycin and changed to Zosyn Order stat CT scan need to rule out necrotizing fasciitis Consult general surgeon for evaluation treatment Sepsis Patient has leukocytosis 17,500, tachycardia tachypnea, meeting criteria for sepsis Start fluid resuscitation Follow-up blood culture : No growth so far Will obtain wound culture Patient may stay more than 2 midnights in the hospital based on patient's symptoms and clinical studies Subjective Date/time seen: 10/17/23 07:56 Interval history: Patient is afebrile, still has tachycardia tachypnea, leukocytosis is getting worse, patient still has right leg pain, patient denies chest pain abdomen pain nausea vomiting diarrhea. Exam Narrative: GENERAL: Pleasant, in no acute distress. Well-nourished. - EYES: EOMI. Anicteric. - HENT: Moist mucous membranes. - LUNGS: Clear to auscultation bilaterally, no wheezing, rhonchi, or rales. - CARDIOVASCULAR: Regular rate and rhythm. No murmur. No JVD. - ABDOMEN: Soft, non-tender and non-distended. No palpable masses. - EXTREMITIES: - ve edema. Peripheral pulses 2+. Non-tender. - NEUROLOGIC: No focal neurological deficits. CN II-XII grossly intact. - PSYCHIATRIC: Awake, Alert and oriented x 3. Appropriate mood and affect. - SKIN: Redness tender, swelling of right lower extremity over the calf and pus drainage - LYMPH: No cervical lymphadenopathy. Objective Data Vital Signs Vital Signs: Vital Signs - 24 hr 10/16/23 08:16 10/16/23 10:43 10/16/23 11:36 Temperature Pulse Rate 114 H 124 H Respiratory Rate 18 16 Blood Pressure 144/96 H 117/83 Pulse Oximetry 98 97 Oxygen Delivery Room Air Fraction of Inspired Oxygen 10/16/23 13:57 10/16/23 20:30 10/17/23 00:00 Temperature 97.8 F 97.6 F Pulse Rate 123 H 125 H 129 H Respiratory Rate 20 18 Blood Pressure 117/77 128/98 H Pulse Oximetry 93 97 Oxygen Delivery Fraction of Inspired Oxygen 10/17/23 04:00 10/17/23 05:37 10/17/23 07:51 Temperature 98.6 F Pulse Rate 125 H 120 H Respiratory Rate 22 H Blood Pressure 130/76 Pulse Oximetry 94 95 Oxygen Delivery Room Air Fraction of Inspired Oxygen 21 Intake/Output Intake/Output: Intake & Output 10/14/23 10/15/23 10/16/23 10/17/23 23:59 23:59 23:59 23:59 Intake Total 4130.0 1650 Output Total 900 Balance 4130.0 750 Meds/Results Medications: Active Medications Generic Name Dose Route Start Last Admin Trade Name Freq PRN Reason Stop Dose Admin Acetaminophen 650 mg 10/16/23 07:03 Acetaminophen 325 Mg Tablet PO Q4H PRN Mild Pain (1-3) or Fever Enoxaparin Sodium 40 mg 10/16/23 09:00 10/16/23 11:26 Enoxaparin 40 Mg/0.4 Ml Syringe SUB-Q 40 mg DAILY JAUN Administration Hydromorphone HCl 1 mg 10/17/23 03:28 10/17/23 03:48 Hydromorphone Hcl Inj (*Crx) 1 Mg/Ml Syr IV PUSH 1 mg Q3H PRN Administration If pain unrelieved by Percocet Clindamycin Phosphate 600 mg in 50 mls @ 100 mls/hr 10/16/23 14:00 10/16/23 22:00 Clindamycin 600 Mg/D5w 50 Ml IVPB Infused Q8H JAUN Infusion Ampicillin Sodium/Sulbactam Sodium 3 gm in 100 mls @ 200 mls/hr 10/16/23 13:00 10/17/23 00:30 Unasyn 3 Gm/Ns 100 Ml IVPB Infused Q6HR JAUN Infusion Sodium Chloride 1,000 mls @ 150 mls/hr 10/16/23 08:20 10/16/23 20:15 Normal Saline Iv IV CONT 150 mls/hr .Q6H40M JAUN Administration Vancomycin HCl 1,500 mg in 500 mls @ 250 mls/hr 10/17/23 04:00 10/17/23 05:02 Vancomycin 1,500 Mg/Ns 500 Ml IVPB 250 mls/hr Q12H JAUN Administrati
[2023-10-17] MEDS: CLINDAMYCIN 600 MG/D5W 50 ML 600 MG/50 ML PIGGYBACK 100 MG IVPB ×2 (08:57→17:45)
[2023-10-17] MEDS: SODIUM CHLORIDE 0.9% IV 1,000 ML 150 ML IV CONT ×2 (09:45→16:09)
[2023-10-17] MEDS: AMPICILLIN SULB 3 GM/NS 100 ML 3 GM/100 ML VIAL IVPB ×2 (10:31)
[2023-10-17] MEDS: ENOXAPARIN 40 MG/0.4 ML SYRINGE SUB-Q (12:44)
[2023-10-17] MEDS: PIPERACILLIN/TAZ 4.5G/NS 100ML 4.5 GM/100 ML BAG IVPB ×2 (16:10→21:00)
[2023-10-18] VITALS (16 sets, daily range): BP systolic 102–148; BP diastolic 71–94; PULSE 100–120; RESP 16–20; TEMP 36.4–38.9; O2SAT 90–99
[2023-10-18] MEDS: SODIUM CHLORIDE 0.9% IV 1,000 ML 150 ML IV CONT ×3 (01:34→21:11)
[2023-10-18] MEDS: CLINDAMYCIN 600 MG/D5W 50 ML 600 MG/50 ML PIGGYBACK 100 MG IVPB ×4 (01:34→23:48)
[2023-10-18] MEDS: oxyCODONE/ACETAMINOPHEN (*CRX) 5-325 MG TABLET 1 TABLET PO ×4 (01:35→23:47)
[2023-10-18] MEDS: PIPERACILLIN/TAZ 4.5G/NS 100ML 4.5 GM/100 ML BAG IVPB ×4 (04:45→21:12)
[2023-10-18] MEDS: VANCOMYCIN 1,500 MG/NS 500 ML 1,500 MG/500 ML BAG 250 MG IVPB (04:45)
[2023-10-18] MEDS: diphenhydrAMINE HCl INJ 50 MG/ML VIAL IV PUSH (04:49)
[2023-10-18 05:48] LABS: Estimated CRCL calculation 105 ml/min; Estimated Glomerular Filt Rate > 60
[2023-10-18] MEDS: ENOXAPARIN 40 MG/0.4 ML SYRINGE SUB-Q (09:19)
--- NOTE | 2023-10-18 10:20 | PM.CNGS ---
Assessment and Plan Assessment and plan (1) Abscess of right leg: Code(s): L02.415 - Cutaneous abscess of right lower limb Status: Acute Assessment and Plan: He is on appropriate broad-spectrum IV antibiotic coverage with continued spread of the cellulitis proximally and distally on his posterior right leg. CT scan of the right lower extremity yesterday showed no subcutaneous gas or evidence of necrotizing fasciitis. There is no obvious organized abscess evident on CT yesterday, but on exam it appears he has developed an abscess on the posterior calf that began spontaneously draining. He now has a small open wound that continues to have purulent drainage suggesting possibly a deeper abscess that needs drained. We would recommend proceeding with incision and drainage of the left lower leg abscess by Dr. Whitaker. Description of the procedure, risks, benefits, alternatives, and expected outcomes/wound care were discussed with the patient. He agrees with proceeding. He has already ate today and will not be able to be taken to the OR this afternoon. Dr. Whitaker will work on adding the patient onto the surgery schedule. (2) Cellulitis of right leg: Code(s): L03.115 - Cellulitis of right lower limb Status: Acute Assessment and Plan: Continue IV antibiotics. Elevate the right lower extremity. Hopefully, this will begin improving after the abscess is adequately drained. Continue local wound care for now. (3) Sepsis: Code(s): A41.9 - Sepsis, unspecified organism Status: Acute Assessment and Plan: Continue broad-spectrum IV antibiotics. Wound culture obtained during my exam. Blood cultures pending. CBC ordered today as his WBC count went up to 20,000 yesterday. (4) Tobacco abuse: Code(s): Z72.0 - Tobacco use Status: Acute Assessment and Plan: Encouraged cessation. Plan I have discussed the patient's case and plan of care with Dr. Whitaker. Thank you for allowing us to see the patient in consultation and we will continue to follow along with you. History of Present Illness Consult details Consult date: 10/18/23 Reason for consult: other (Right lower extremity cellulitis, concern for necrotizing fasciitis) Requesting physician: Airam Cartagena MD Narrative: This is a 42-year-old man who has no significant past medical history, who presented to the ED two days ago with complaints of right posterior lower leg swelling and redness. He noticed a spider in his house the day prior to his symptoms and was concerned he may have a spider bite, but never actually witnessed any insect or spider bite him. He denies any drainage at home to me today, but the ED provider note mentions he maybe had a blackened area with drainage prior to coming into the ER. He denies fever, chills, nausea, vomiting, or any other complaints. No known history of MRSA. No recent travel. He denies doing anything out of the ordinary the day prior to his onset of symptoms. No trauma to his right leg. He denies history of diabetes. Workup in the ED showed WBC count of 17,500, lactic acid 1.5. X-rays of the right leg showed no acute osseous abnormality. He was admitted and started on broad-spectrum IV antibiotics. The redness on his leg has continued to spread and swelling got worse, therefore a CT scan of the right lower extremity was ordered yesterday. It showed no evidence of a necrotizing infection or any obvious organized abscess. Our service was consulted for his right lower extremity cellulitis and concern for possible necrotizing fasciitis. He is now seen on the medical floor. He feels his redness, swelling, and pain has gotten worse. He has been tachycardic since admission and appears he has received IV fluid resuscitation. His blood pressure has been stable and he has been afebrile. No labs were ordered this morning, so I added a CBC today. He denies any previous surgeries on his lower extremities. Review of Systems Review of Syst
--- NOTE | 2023-10-18 10:46 | PM.IMPN ---
Progress Note: A&P Assessment and Plan (1) Cellulitis of right leg: Code(s): L03.115 - Cellulitis of right lower limb Status: Acute (2) Sepsis: Code(s): A41.9 - Sepsis, unspecified organism Status: Acute Plan Cellulitis of right lower extremity Secondary to insect bite Has been on vancomycin, clindamycin the Unasyn IV since admission pt has worse leg swelling, skin is tight, the police improving continue vancomycin clindamycin and changed to Zosyn 10/17 CT scan of right leg does not show necrotizing fasciitis Consult general surgeon for evaluation treatment Sepsis Patient has leukocytosis 17,500, tachycardia tachypnea, meeting criteria for sepsis Start fluid resuscitation Follow-up blood culture : No growth so far Pending wound cultures Subjective Date/time seen: 10/18/23 10:46 Interval history: Patient is afebrile, blood pressure stable, still has tachycardia, wound culture pending, blood culture no growth so far, patient feels pain is controlled, CT shows no necrotizing fasciitis Exam Narrative: GENERAL: Pleasant, in no acute distress. Well-nourished. - EYES: EOMI. Anicteric. - HENT: Moist mucous membranes. - LUNGS: Clear to auscultation bilaterally, no wheezing, rhonchi, or rales. - CARDIOVASCULAR: Regular rate and rhythm. No murmur. No JVD. - ABDOMEN: Soft, non-tender and non-distended. No palpable masses. - EXTREMITIES: - ve edema. Peripheral pulses 2+. Non-tender. - NEUROLOGIC: No focal neurological deficits. CN II-XII grossly intact. - PSYCHIATRIC: Awake, Alert and oriented x 3. Appropriate mood and affect. - SKIN: Redness tender, swelling of right lower extremity over the calf and pus drainage - LYMPH: No cervical lymphadenopathy. Objective Data Vital Signs Vital Signs: Vital Signs - 24 hr 10/17/23 14:00 10/17/23 12:00 10/17/23 16:00 Temperature 99.0 F Pulse Rate 109 H 115 H 112 H Respiratory Rate 18 Blood Pressure 138/102 H Pulse Oximetry 90 10/17/23 20:16 10/17/23 20:00 10/18/23 00:00 Temperature 98.0 F Pulse Rate 98 108 H 112 H Respiratory Rate 18 Blood Pressure 126/93 H Pulse Oximetry 100 10/18/23 04:00 10/18/23 05:27 10/18/23 08:00 Temperature 97.8 F Pulse Rate 117 H 110 H 112 H Respiratory Rate 18 Blood Pressure 118/87 Pulse Oximetry 92 Intake/Output Intake/Output: Intake & Output 10/15/23 10/16/23 10/17/23 10/18/23 23:59 23:59 23:59 23:59 Intake Total 4130.0 6480 1700 Output Total 2450 1350 Balance 4130.0 4030 350 Meds/Results Medications: Active Medications Generic Name Dose Route Start Last Admin Trade Name Freq PRN Reason Stop Dose Admin Acetaminophen 650 mg 10/16/23 07:03 Acetaminophen 325 Mg Tablet PO Q4H PRN Mild Pain (1-3) or Fever Enoxaparin Sodium 40 mg 10/16/23 09:00 10/18/23 09:19 Enoxaparin 40 Mg/0.4 Ml Syringe SUB-Q 40 mg DAILY JAUN Administration Hydromorphone HCl 1 mg 10/17/23 03:28 10/17/23 08:07 Hydromorphone Hcl Inj (*Crx) 1 Mg/Ml Syr IV PUSH 1 mg Q3H PRN Administration If pain unrelieved by Percocet Sodium Chloride 1,000 mls @ 150 mls/hr 10/16/23 08:20 10/18/23 10:25 Normal Saline Iv IV CONT 150 mls/hr .Q6H40M JAUN Administration Vancomycin HCl 1,500 mg in 500 mls @ 250 mls/hr 10/17/23 04:00 10/18/23 06:45 Vancomycin 1,500 Mg/Ns 500 Ml IVPB Infused Q12H JAUN Infusion Clindamycin Phosphate 600 mg in 50 mls @ 100 mls/hr 10/17/23 17:00 10/18/23 09:17 Clindamycin 600 Mg/D5w 50 Ml IVPB 100 mls/hr Q8H JAUN Administration Piperacillin Sod/Tazobactam Sod 4.5 gm in 100 mls @ 200 mls/hr 10/17/23 16:00 10/18/23 10:23 Zosyn 4.5 Gm/Ns 100 Ml IVPB 200 mls/hr Q6H JAUN Administration Metoclopramide HCl 10 mg 10/16/23 08:19 Metoclopramide Hcl Inj 10 Mg/2 Ml Vial IV PUSH Q6H PRN Nausea And Vomiting Ondansetron HCl 4 mg 10/16/23 07:03 Ondansetron Inj 4 Mg/2 Ml Vial IV PUSH
[2023-10-18 11:23] LABS: Basophils Absolute Auto 0.1 K/mm3 (0.0-0.1); Basophils Percent Auto 0.4 % (0.2-1.2); Eosinophils Absolute Auto 0.2 K/mm3 (0-0.3); Eosinophils Percent Auto 1.3 % (0-4.4); Hematocrit 37.6 % (42.0-52.0); Hemoglobin 12.9 g/dL (14.0-18.0); Immature Granulocyte Absolute 0.17 K/mm3 (0.00-0.031); Immature Platelet Fraction Pct 2.2 % (0.9-11.2); Lymphocytes Absolute Auto 1.37 K/mm3 (0.9-3.2); Lymphocytes Percent Auto 8.5 % (18.3-44.2); Mean Corpuscular HGB Conc 34.3 g/dl (32-36); Mean Corpuscular Hemoglobin 30.7 pg (26-34); Mean Corpuscular Volume 89.5 fl (80-100); Mean Platelet Volume 10.7 fl (7.4-10.4); Monocytes Absolute Auto 0.9 K/mm3 (0.1-0.6); Monocytes Percent Auto 5.5 % (2.6-8.5); Neutrophils Absolute Auto 13.5 K/mm3 (1.3-6.7); Neutrophils Percent Auto 83.3 % (45.5-73.1); Platelet Count Result 200 k/mm3 (150-375); Red Cell Distribution Width 13.6 % (11.5-14.5); White Blood Count 16.2 K/mm3 (4.5-10.0)
[2023-10-18 11:48] LABS: Burr Cells 2+; Platelet Estimate Adequate (Adequate); Schistocytes None Seen
[2023-10-18 11:49] LABS: Polychromasia 1+
[2023-10-18 15:46] LABS: Anion Gap 8 mmol/L (4-12); Blood Urea Nitrogen 13 mg/dL (9-20); Calcium 7.9 mg/dL (8.4-10.2); Carbon Dioxide 19 mmol/L (22-30); Chloride 107 mmol/L (98-107); Estimated CRCL calculation 105 ml/min; Estimated Glomerular Filt Rate > 60; Glucose 100 mg/dL (65-110); Potassium 3.9 mmol/L (3.4-5.0); Sodium 134 mmol/L (137-145)
[2023-10-18 16:26] LABS: Vancomycin Trough 8.1 ug/mL (10.0-20.0)
--- NOTE | 2023-10-18 17:32 | WPDANESEPPF ---
Anes - Initial Pre Proc Eval Procedure: Operation Date: 10/18/23 18:30 Proposed Procedures p Incision and Drainage Right Calf Abscess - Chu Whitaker MD Date/Time: 10/18/23 17:32 Surgeon: Airam Cartagena MD Pre Op Diagnosis: Right Lower Extremity Cellulitis Patient Data Age: 42 Gender: M Height: 1.7 m Weight: 100 kg Last Vital Signs Temp 36.6 C 10/18/23 14:00 Pulse 109 H 10/18/23 14:00 Resp 20 10/18/23 14:00 BP 140/90 10/18/23 14:00 Pulse Ox 96 10/18/23 14:00 O2 Del Method Room Air 10/17/23 07:51 FiO2 21 10/17/23 07:51 Allergies Allergy/AdvReac Type Severity Reaction Status Date / Time No Known Allergies Allergy Verified 02/11/22 18:46 Home Medications Medication Instructions Recorded Confirmed Type No Home Medications 10/17/23 10/17/23 History Laboratory Tests 10/18/23 10/18/23 10/18/23 05:11 05:16 15:11 WBC 16.2 H K/mm3 (4.5-10.0) RBC 4.20 L M/mm3 (4.6-6.20) Hgb 12.9 L g/dL (14.0-18.0) Hct 37.6 L % (42.0-52.0) MCV 89.5 fl (80-100) MCH 30.7 D pg (26-34) MCHC 34.3 g/dl (32-36) RDW 13.6 % (11.5-14.5) Plt Count 200 k/mm3 (150-375) MPV 10.7 H fl (7.4-10.4) Immature Gran % (Auto) 1.0 H % (0-0.5) Neut % (Auto) 83.3 H % (45.5-73.1) Lymph % (Auto) 8.5 L % (18.3-44.2) [place] % (Auto) 5.5 % (2.6-8.5) Eos % (Auto) 1.3 % (0-4.4) Baso % (Auto) 0.4 % (0.2-1.2) Lymph # (Auto) 1.37 K/mm3 (0.9-3.2) [place] # (Auto) 0.9 H K/mm3 (0.1-0.6) Eos # (Auto) 0.2 K/mm3 (0-0.3) Baso # (Auto) 0.1 K/mm3 (0.0-0.1) Abs Immat Gran (auto) 0.17 H K/mm3 (0.00-0.031) Absolute Neuts (auto) 13.5 H K/mm3 (1.3-6.7) Absolute Nucleated RBC 0.000 K/mm3 (0.0-0.012) Nucleated RBC % 0.0 % (0.0-0.2) Platelet Estimate Adequate (Adequate) % Immature Plt Fraction 2.2 % (0.9-11.2) Polychromasia 1+ [place] Cells 2+ Schistocytes None seen Sodium 134 L mmol/L (137-145) Potassium 3.9 mmol/L (3.4-5.0) Chloride 107 mmol/L (98-107) Carbon Dioxide 19 L mmol/L (22-30) Anion Gap 8 mmol/L (4-12) BUN 13 mg/dL (9-20) Creatinine 0.90 mg/dL 0.90 mg/dL (0.7-1.3) (0.7-1.3) Estim Creat Clear Calc 105 ml/min 105 ml/min Estimated GFR > 60 > 60 (59 - ) (59 - ) Glucose 100 mg/dL (65-110) Calcium 7.9 L mg/dL (8.4-10.2) Vancomycin Trough 8.1 L ug/mL (10.0-20.0) Patient hx anesthesia problems: none Family hx anesthesia problems: none Results Review: All pre-operative results and documents have been reviewed as part of the pre-operative evaluation. [facility] Past Medical History Medical History Healthy adult Surgical History Surgical History History of inguinal hernia repair x2 Social History Social History Smoking packs per day: 1 Smoking cigarettes per day: 20.0 Smoking status: Current every day smoker Alcohol intake: never Substance use: unknown Do You Feel Safe in your Home?: Yes Lack of Transportation: No Lack of Food: Sometimes True Current Housing: I Have Housing Concerned About Future Housing: YES Difficulty Paying Gas/Electric Bills: YES Difficulty Paying for Meds: No Currently Unemployed: YES Education: High School Diploma/GED Difficulty w/ Childcare or Family Care: No Gender identity (if verbalized by the patient): Male Spiritual care concerns: Yes Jeffrey Mauricio Final PreProcedure Day of Procedure 10/18/23 17:32 Patient weight: o
--- NOTE | 2023-10-18 18:05 | PC.NURSE ---
Addendum entered by Christie Velazquez RN 10/18/23 18:08: Pt went To OR per bed at 1730, IV infusing. Report given to Estrella POTTS. Addendum entered by Christie Velazquez RN 10/18/23 18:06: To OR per bed, IV infusing. Report given to Estrella POTTS. Original Note: To OR per bed , IV [ ]. Report given to [ ].
[2023-10-18] MEDS: LACTATED RINGERS 1,000 ML 30 ML IV CONT (18:06)
[2023-10-18] MEDS: VANCOMYCIN 2,000 MG/NS 500 ML 2,000 MG/500 ML BAG 250 MG IVPB (18:06)
--- NOTE | 2023-10-18 18:20 | WPDHPUPDATE1 ---
History and Physical Update Update Date/Time: 10/18/23 18:20 History and Physical has been reviewed, including an updated exam of the patient. There are NO changes in the patient's condition. Risks, benefits, and alternatives have been discussed and questions answered. Patient agrees to proceed with procedure.
[2023-10-18] MEDS: LIDO 1%/EPINEPHRINE 1:100,000 50 ML VIAL 15 ML INFILTRATE (19:06)
--- NOTE | 2023-10-18 19:07 | SUR.OPER ---
Culture given to Eduarda Lerma, taken to lab and given to Nohemi.
--- NOTE | 2023-10-18 19:25 | W.PM.PROC2 ---
Procedure Note - Detailed Date of Procedure 10/18/23 Pre-op Diagnosis Right Lower Extremity Cellulitis and abscess Post-op Diagnosis Same (Complex right posterior calf abscess and cellulitis) Procedure Performed Complex incision and drainage of right posterior calf abscess. Surgeon Chu Whitaker MD [employer] Clerk [facility] Anesthesia General Indications Patient is a 42-year-old gentleman presented 2 days ago with redness and pain in his posterior calf area. He stated he had been bitten by an insect. The cellulitis continued to get worse and his white blood cell count continued to rise in spite of broad-spectrum IV antibiotics including Zosyn, vancomycin, and clindamycin. CT scan of the right lower extremity yesterday showed diffuse inflammatory changes with stranding of the soft tissues without evidence for necrotizing fasciitis of the right calf area. The patient was noted to have an area drainage from the right posterior calf with pus draining. He likely has developed an abscess and now presents for its emergent incision and drainage of the abscess. Findings Patient moderately large upper posterior right calf abscess which extended up towards the popliteal fossa and lateral towards the anterior part of the knee. The did not enter the popliteal fossa or the joint space. There was much less tracking inferior towards the foot. There was some necrotic tissue within the draining area. Description of Procedure After informed consent was obtained patient brought to the operating room was placed and the supine position on the bed and then placed under general endotracheal anesthesia. He was then moved over to the operating table and placed in the right lateral decubitus position. Pressure points were well padded and he was secured onto the bed with lateral positioners and tape and straps across the hip. The area the posterior right calf region was then prepped and draped usual sterile fashion. A time-out was then performed correctly identifying the patient as well as procedure to be performed and identifying the site marking. He was already on scheduled IV antibiotics. I started by making a cruciate incision over the open area this allowed me entrance into a abscess cavity measuring about 10 to 12 cm in diameter extending from the subcutaneous tissues all the way down to the fascia of the calf muscle. It extended upwards to the popliteal crease but did not seem to enter into the popliteal fossa. Laterally it seem to extend towards the lateral part of the knee and towards the patella but did not enter the right knee joint. I obtained a culture the pus in this abscess cavity and was sent to microbiology for Gram stain as well as aerobic anaerobic cultures. I then made 2 counter incisions laterally on the leg and posteriorly up towards the crease of the popliteal fossa. I then irrigated through these 3 incisions with copious amounts sterile saline solution until all the pus was drained and irrigated out. I then place half-inch [place] drains between the initial opening to the abscess cavity and the counter incisions. They were looped and secured and tied to themselves with 3-0 nylon sutures. I then packed the wound tightly with 1in iodoform gauze. This achieved hemostasis. There is then cleaned and then dressed with fluffed 4x4 gauze followed by ABD pad and then wrapped Kerlix gauze. An Rex wrap was then used to wrap the whole leg from the toes all the way to just above the right knee. The patient tolerated the procedure well no complications. All sponges, needles, and instrument counts were correct at the end procedure. EBL was _25__cc. The patient was awakened and taken to recovery in stable and satisfactory condition. Implants None Estimated Blood Loss 25 Urine Output 1,240 Drains Yes (Half-inch [place] drains x2) Packing Yes (1in iodoform gauze) Pathology Other (Culture swab sent to microbiology for Gram stain, aerobic, and anaerobic c
[2023-10-18] MEDS: ACETAMINOPHEN 325 MG TABLET 650 MG PO (23:01)
[2023-10-19] VITALS (12 sets, daily range): BP systolic 117–155; BP diastolic 69–96; PULSE 100–118; RESP 13–20; TEMP 36.4–38.2; O2SAT 91–98
[2023-10-19] MEDS: PIPERACILLIN/TAZ 4.5G/NS 100ML 4.5 GM/100 ML BAG IVPB ×4 (04:31→21:33)
[2023-10-19] MEDS: VANCOMYCIN 2,000 MG/NS 500 ML 2,000 MG/500 ML BAG 250 MG IVPB ×2 (04:31→18:03)
[2023-10-19] MEDS: oxyCODONE/ACETAMINOPHEN (*CRX) 5-325 MG TABLET 1 TABLET PO ×4 (04:32→23:32)
[2023-10-19 05:20] LABS: Basophils Absolute Auto 0.1 K/mm3 (0.0-0.1); Basophils Percent Auto 0.6 % (0.2-1.2); Eosinophils Absolute Auto 0.3 K/mm3 (0-0.3); Eosinophils Percent Auto 2.7 % (0-4.4); Hemoglobin 11.8 g/dL (14.0-18.0); Immature Granulocyte Absolute 0.08 K/mm3 (0.00-0.031); Immature Granulocyte Percent A 0.7 % (0-0.5); Lymphocytes Absolute Auto 1.79 K/mm3 (0.9-3.2); Lymphocytes Percent Auto 14.7 % (18.3-44.2); Mean Corpuscular HGB Conc 33.7 g/dl (32-36); Mean Corpuscular Hemoglobin 29.8 pg (26-34); Mean Corpuscular Volume 88.4 fl (80-100); Mean Platelet Volume 9.9 fl (7.4-10.4); Monocytes Percent Auto 8.3 % (2.6-8.5); Neutrophils Absolute Auto 8.9 K/mm3 (1.3-6.7); Platelet Count Result 219 k/mm3 (150-375); Red Blood Count 3.96 M/mm3 (4.6-6.20); Red Cell Distribution Width 13.6 % (11.5-14.5); White Blood Count 12.2 K/mm3 (4.5-10.0)
[2023-10-19 05:32] LABS: Hemoglobin A1C 5.9 % (<5.7)
[2023-10-19 05:36] LABS: Anion Gap 4 mmol/L (4-12); Blood Urea Nitrogen 11 mg/dL (9-20); Calcium 7.5 mg/dL (8.4-10.2); Carbon Dioxide 26 mmol/L (22-30); Chloride 108 mmol/L (98-107); Estimated CRCL calculation 87 ml/min; Estimated Glomerular Filt Rate > 60; Glucose 139 mg/dL (65-110); Potassium 3.3 mmol/L (3.4-5.0); Sodium 138 mmol/L (137-145)
--- NOTE | 2023-10-19 08:40 | PM.IMPN ---
Progress Note: A&P Assessment and Plan (1) Cellulitis of right leg: Code(s): L03.115 - Cellulitis of right lower limb Status: Acute (2) Sepsis: Code(s): A41.9 - Sepsis, unspecified organism Status: Acute Plan Cellulitis of right lower extremity , complex right calf abscess. Secondary to insect bite Has been on vancomycin, clindamycin the Unasyn IV since admission pt had worse leg swelling, skin is tight, the police improving continue vancomycin clindamycin and changed to Zosyn 10/17 CT scan of right leg does not show necrotizing fasciitis Consult general surgeon for evaluation treatment. Appreciate general surgeon consultation Performed I and D of right calf abscess on 10/17 pending wound culture, dc clindamycin per ID pharmacist recommendation, continue vancomycin and Zosyn Sepsis Patient has leukocytosis 17,500, tachycardia tachypnea, meeting criteria for sepsis Start fluid resuscitation Follow-up blood culture : No growth so far Pending wound cultures Subjective Date/time seen: 10/19/23 08:40 Interval history: Wound culture pending, patient is febrile overnight, leukocytosis improving, pain is better controlled, I and D postop day 1. Patient feels pain is better, denies abdomen pain nausea vomiting chest pain shortness of breath Exam Narrative: GENERAL: Pleasant, in no acute distress. Well-nourished. - EYES: EOMI. Anicteric. - HENT: Moist mucous membranes. - LUNGS: Clear to auscultation bilaterally, no wheezing, rhonchi, or rales. - CARDIOVASCULAR: Regular rate and rhythm. No murmur. No JVD. - ABDOMEN: Soft, non-tender and non-distended. No palpable masses. - EXTREMITIES: - ve edema. Peripheral pulses 2+. Non-tender. - NEUROLOGIC: No focal neurological deficits. CN II-XII grossly intact. - PSYCHIATRIC: Awake, Alert and oriented x 3. Appropriate mood and affect. - SKIN: Redness tender, swelling of right lower extremity over the calf and pus drainage - LYMPH: No cervical lymphadenopathy. Objective Data Vital Signs Vital Signs: Vital Signs - 24 hr 10/18/23 12:00 10/18/23 14:00 10/18/23 17:44 Temperature 97.9 F 97.5 F L Pulse Rate 110 H 109 H 106 H Respiratory Rate 20 Blood Pressure 140/90 124/83 Pulse Oximetry 96 96 Oxygen Delivery Room Air Oxygen Flow Rate 10/18/23 16:00 10/18/23 19:21 10/18/23 19:30 Temperature 98.1 F Pulse Rate 100 105 H 109 H Respiratory Rate 16 18 Blood Pressure 102/71 124/86 Pulse Oximetry 99 93 Oxygen Delivery Simple Face Mask Room Air Oxygen Flow Rate 8 10/18/23 19:45 10/18/23 20:00 10/18/23 20:15 Temperature 97.9 F 98.0 F Pulse Rate 107 H 109 H 108 H Respiratory Rate 16 17 16 Blood Pressure 118/83 148/94 H 144/94 H Pulse Oximetry 95 96 95 Oxygen Delivery Room Air Oxygen Flow Rate 10/18/23 20:45 10/18/23 21:45 10/18/23 23:01 Temperature 98.1 F 102.1 F H 102.1 F H Pulse Rate 110 H 120 H Respiratory Rate 16 17 Blood Pressure 142/90 H 124/75 Pulse Oximetry 92 90 Oxygen Delivery Oxygen Flow Rate 10/19/23 00:01 10/19/23 01:28 10/19/23 00:00 Temperature 100.7 F H 98.4 F Pulse Rate 115 H 117 H Respiratory Rate 13 Blood Pressure 117/69 Pulse Oximetry 91 Oxygen Delivery Oxygen Flow Rate 10/19/23 04:00 10/19/23 05:52 10/19/23 08:14 Temperature 97.6 F 98.1 F Pulse Rate 109 H 105 H 100 Respiratory Rate 14 18 Blood Pressure 125/81 138/83 Pulse Oximetry 98 97 Oxygen Delivery Oxygen Flow Rate Intake/Output Intake/Output: Intake & Output 10/16/23 10/17/23 10/18/23 10/19/23 23:59 23:59 23:59 23:59 Intake Total 4130.0 6480 4270 1150 Output Total 2450 3830 1850 Balance 4130.0 4030 440 -700 Meds/Results Medications: Active Medications Generic Name Dose Route Start Last Admin Trade Name Freq PRN Reason Stop Dose Admin Acetaminophen 650 mg 10/16/23 07:03 10/18/23 23:01 Acetaminophen 325 Mg Tablet PO 650 mg Q4H PRN Administ
[2023-10-19] MEDS: ENOXAPARIN 40 MG/0.4 ML SYRINGE SUB-Q (09:56)
[2023-10-19] MEDS: CLINDAMYCIN 600 MG/D5W 50 ML 600 MG/50 ML PIGGYBACK 100 MG IVPB (09:56)
[2023-10-19] MEDS: SODIUM CHLORIDE 0.9% IV 1,000 ML 150 ML IV CONT ×2 (09:58→21:32)
[2023-10-19] MEDS: HYDROmorphone HCL INJ (*CRX) 1 MG/ML SYR IV PUSH (13:42)
--- NOTE | 2023-10-19 13:50 | PM.PNGS ---
Progress Note: A&P Assessment and Plan (1) Abscess of right leg: Code(s): L02.415 - Cutaneous abscess of right lower limb Status: Acute Assessment and Plan: He is postop day 1 following I&D complex right calf abscess. Dressing changed and packing removed today. Abscess appears adequately drained. He has two kel drains in place. Will continue with local wound care with gauze cover dressings. We do not need to continue packing the wound. Cultures obtained during surgery and pending. WBC trending down. Continue IV antibiotics. (2) Cellulitis of right leg: Code(s): L03.115 - Cellulitis of right lower limb Status: Acute Assessment and Plan: Cellulitis is improving. Continue IV antibiotics. Elevate the right lower extremity and continue to use rios wrap for compression. Plan I have discussed the patient's case and plan of care with Dr. Whitaker. Subjective Subjective Date/Time Seen: 10/19/23 13:50 Patient reports: no new complaints, feels better, pain is less, tolerating a regular diet and fever (102.1F last night around 9pm) Interval history: Patient seen today for dressing change. He denies any acute events overnight. WBC down to 12,000. Exam Narrative: Right leg dressing removed. Iodoform packing removed from right posterior calf wound. Moderate amount of dried arambula bloody drainage on the dressing. There are two [place] drains in place through two counter incisions, one is tracking cephalad and lateral with the incision just distal to the popliteal fossa and the other is tracking more inferior and medial. No purulent drainage or necrotic tissue noted on exam. Surrounding erythema and edema improving. Objective Data Vital Signs Vital Signs: Vital Signs - 24 hr 10/18/23 14:00 10/18/23 17:44 10/18/23 16:00 Temperature 97.9 F 97.5 F L Pulse Rate 109 H 106 H 100 Respiratory Rate 20 Blood Pressure 140/90 124/83 Pulse Oximetry 96 96 Oxygen Delivery Room Air Oxygen Flow Rate 10/18/23 19:21 10/18/23 19:30 10/18/23 19:45 Temperature 98.1 F Pulse Rate 105 H 109 H 107 H Respiratory Rate 16 18 16 Blood Pressure 102/71 124/86 118/83 Pulse Oximetry 99 93 95 Oxygen Delivery Simple Face Mask Room Air Room Air Oxygen Flow Rate 8 10/18/23 20:00 10/18/23 20:15 10/18/23 20:45 Temperature 97.9 F 98.0 F 98.1 F Pulse Rate 109 H 108 H 110 H Respiratory Rate 17 16 16 Blood Pressure 148/94 H 144/94 H 142/90 H Pulse Oximetry 96 95 92 Oxygen Delivery Oxygen Flow Rate 10/18/23 21:45 10/18/23 23:01 10/19/23 00:01 Temperature 102.1 F H 102.1 F H 100.7 F H Pulse Rate 120 H Respiratory Rate 17 Blood Pressure 124/75 Pulse Oximetry 90 Oxygen Delivery Oxygen Flow Rate 10/19/23 01:28 10/19/23 00:00 10/19/23 04:00 Temperature 98.4 F Pulse Rate 115 H 117 H 109 H Respiratory Rate 13 Blood Pressure 117/69 Pulse Oximetry 91 Oxygen Delivery Oxygen Flow Rate 10/19/23 05:52 10/19/23 08:14 10/19/23 12:00 Temperature 97.6 F 98.1 F 98.4 F Pulse Rate 105 H 100 103 H Respiratory Rate 14 18 19 Blood Pressure 125/81 138/83 124/84 Pulse Oximetry 98 97 96 Oxygen Delivery Oxygen Flow Rate Intake/Output Intake/Output: Intake & Output 10/16/23 10/17/23 10/18/23 10/19/23 23:59 23:59 23:59 23:59 Intake Total 4130.0 6480 4270 2750 Output Total 2450 3830 2100 Balance 4130.0 4030 440 650 Meds/Results Medications: Active Medications Generic Name Dose Route Start Last Admin Trade Name Johnnyq PRN Reason Stop Dose Admin Acetaminophen 650 mg 10/16/23 07:03 10/18/23 23:01 Acetaminophen 325 Mg Tablet PO 650 mg Q4H PRN Administration Mild Pain (1-3) or Fever Enoxaparin Sodium 40 mg 10/16/23 09:00 10/19/23 09:56 Enoxaparin 40 Mg/0.4 Ml Syringe SUB-Q 40 mg DAILY JAUN Administration Hydromorphone HCl 1 mg 10/17/23 03:28 10/19/23 13:42 Hydromorphone Hcl Inj (*Crx) 1 Mg/Ml Syr IV PUSH 1 mg Q3H MA
--- NOTE | 2023-10-19 14:46 | P.PNAN_ITS ---
Anes - Prog Note Post-Op Date/Time: 10/19/23 14:46 Cardiovascular status: normal Respiratory status: normal Airway patency: baseline Mental status: baseline Post-Op hydration status: normal Vital Signs: Last Vital Signs Temp 36.9 C 10/19/23 12:00 Pulse 108 H 10/19/23 12:00 Resp 19 10/19/23 12:00 BP 124/84 10/19/23 12:00 Pulse Ox 96 10/19/23 12:00 O2 Del Method Room Air 10/18/23 19:45 O2 Flow Rate 8 10/18/23 19:21 FiO2 21 10/17/23 07:51 Pain Score (VAS): 10 I/O: Intake & Output 10/18/23 10/19/23 10/19/23 23:59 07:59 15:59 Intake Total 2200 2150 600 Output Total 2480 1450 650 Balance -280 700 -50 Laboratory Tests 10/19/23 04:06 10/19/23 04:06 10/18/23 10/18/23 10/19/23 05:11 15:11 04:06 WBC 12.2 H RBC 3.96 L Hgb 11.8 L Hct 35.0 L MCV 88.4 MCH 29.8 MCHC 33.7 RDW 13.6 Plt Count 219 MPV 9.9 Immature Gran % (Auto) 0.7 H Neut % (Auto) 73.0 Lymph % (Auto) 14.7 L [place] % (Auto) 8.3 Eos % (Auto) 2.7 Baso % (Auto) 0.6 Lymph # (Auto) 1.79 [place] # (Auto) 1.0 H Eos # (Auto) 0.3 Baso # (Auto) 0.1 Abs Immat Gran (auto) 0.08 H Absolute Neuts (auto) 8.9 H Absolute Nucleated RBC 0.000 Nucleated RBC % 0.0 Sodium 134 L 138 Potassium 3.9 3.3 L Chloride 107 108 H Carbon Dioxide 19 L 26 Anion Gap 8 4 BUN 13 11 Creatinine 0.90 1.10 Estim Creat Clear Calc 105 87 Estimated GFR > 60 > 60 Glucose 100 139 H Hemoglobin A1c 5.9 H Calcium 7.9 L 7.5 L Vancomycin Trough 8.1 L Microbiology 10/18/23 18:55 Leg Right Anaerobic Culture - Preliminary 10/18/23 10:18 Leg Right Wound Culture - Preliminary Post-procedural complaints: none Patient Feedback: Patient satisfied with anesthetic care.
--- NOTE | 2023-10-19 17:59 | ECG_ITS ---
Test Date: 2023-10-19 18:11:26 Measurements Intervals [place] Rate: 114 P: 54 MN: 152 QRS: 70 QRSD: 112 T: 26 QT: 333 QTc: 460 Interpretive Statements SINUS TACHYCARDIA MODERATE INTRAVENTRICULAR CONDUCTION DELAY [110+ ms QRS DURATION] Compared to ECG 10/16/2023 21:00:48 NO SIGNIFICANT CHANGES Electronically Signed On 10-20-2023 13:32:49 CDT by Geo Limon M.D.
[2023-10-20] VITALS (10 sets, daily range): BP systolic 134–160; BP diastolic 83–99; PULSE 91–107; RESP 18–20; TEMP 36.1–37.1; O2SAT 96–97
[2023-10-20 04:46] LABS: Basophils Absolute Auto 0.1 K/mm3 (0.0-0.1); Basophils Percent Auto 0.6 % (0.2-1.2); Eosinophils Absolute Auto 0.5 K/mm3 (0-0.3); Eosinophils Percent Auto 3.3 % (0-4.4); Hematocrit 36.6 % (42.0-52.0); Immature Granulocyte Absolute 0.12 K/mm3 (0.00-0.031); Immature Granulocyte Percent A 0.8 % (0-0.5); Lymphocytes Absolute Auto 1.96 K/mm3 (0.9-3.2); Lymphocytes Percent Auto 13.9 % (18.3-44.2); Mean Corpuscular HGB Conc 32.8 g/dl (32-36); Mean Corpuscular Volume 88.4 fl (80-100); Mean Platelet Volume 9.2 fl (7.4-10.4); Monocytes Absolute Auto 1.3 K/mm3 (0.1-0.6); Monocytes Percent Auto 9.4 % (2.6-8.5); Neutrophils Absolute Auto 10.2 K/mm3 (1.3-6.7); Platelet Count Result 262 k/mm3 (150-375); Red Blood Count 4.14 M/mm3 (4.6-6.20); Red Cell Distribution Width 13.6 % (11.5-14.5); White Blood Count 14.1 K/mm3 (4.5-10.0)
[2023-10-20] MEDS: PIPERACILLIN/TAZ 4.5G/NS 100ML 4.5 GM/100 ML BAG IVPB ×2 (04:54→09:39)
[2023-10-20] MEDS: oxyCODONE/ACETAMINOPHEN (*CRX) 5-325 MG TABLET 1 TABLET PO ×3 (04:54→20:16)
[2023-10-20] MEDS: SODIUM CHLORIDE 0.9% IV 1,000 ML 150 ML IV CONT ×2 (04:55→17:22)
[2023-10-20 05:08] LABS: Anion Gap 5 mmol/L (4-12); Blood Urea Nitrogen 10 mg/dL (9-20); Calcium 7.9 mg/dL (8.4-10.2); Carbon Dioxide 25 mmol/L (22-30); Chloride 106 mmol/L (98-107); Estimated CRCL calculation 95 ml/min; Estimated Glomerular Filt Rate > 60; Glucose 106 mg/dL (65-110); Potassium 3.6 mmol/L (3.4-5.0); Sodium 136 mmol/L (137-145)
[2023-10-20 05:17] LABS: Vancomycin Trough 11.1 ug/mL (10.0-20.0)
[2023-10-20] MEDS: VANCOMYCIN 2,000 MG/NS 500 ML 2,000 MG/500 ML BAG 250 MG IVPB (05:37)
--- NOTE | 2023-10-20 08:32 | PM.IMPN ---
Progress Note: A&P Assessment and Plan (1) Cellulitis of right leg: Code(s): L03.115 - Cellulitis of right lower limb Status: Acute (2) Sepsis: Code(s): A41.9 - Sepsis, unspecified organism Status: Acute Plan Cellulitis of right lower extremity , complex right calf abscess. Secondary to insect bite Has been on vancomycin, clindamycin the Unasyn IV since admission pt had worse leg swelling, skin is tight, the police improving continue vancomycin clindamycin and changed to Zosyn 10/17 CT scan of right leg does not show necrotizing fasciitis Consult general surgeon for evaluation treatment. Appreciate general surgeon consultation Performed I and D of right calf abscess on 10/17 pending wound culture; Scant growth of Group A Streptococcus isolated dc clindamycin per ID pharmacist recommendation 10/18 continue vancomycin and Zosyn Sepsis Patient has leukocytosis 17,500, tachycardia tachypnea, meeting criteria for sepsis Start fluid resuscitation Follow-up blood culture : No growth so far wound cultures: see above afeb o/n Subjective Date/time seen: 10/20/23 08:32 Interval history: Patient does not have fever over the night, leukocytosis getting worse 14,000, patient feels better, pain is better controlled. Still has active drainage from the right calf. Exam Narrative: GENERAL: Pleasant, in no acute distress. Well-nourished. - EYES: EOMI. Anicteric. - HENT: Moist mucous membranes. - LUNGS: Clear to auscultation bilaterally, no wheezing, rhonchi, or rales. - CARDIOVASCULAR: Regular rate and rhythm. No murmur. No JVD. - ABDOMEN: Soft, non-tender and non-distended. No palpable masses. - EXTREMITIES: - ve edema. Peripheral pulses 2+. Non-tender. - NEUROLOGIC: No focal neurological deficits. CN II-XII grossly intact. - PSYCHIATRIC: Awake, Alert and oriented x 3. Appropriate mood and affect. - SKIN: Redness tender, swelling of right lower extremity over the calf, pus drainage is less - LYMPH: No cervical lymphadenopathy. Objective Data Vital Signs Vital Signs: Vital Signs - 24 hr 10/19/23 12:00 10/19/23 10:17 10/19/23 12:00 Temperature 98.4 F Pulse Rate 103 H 105 H 108 H Respiratory Rate 19 Blood Pressure 124/84 Pulse Oximetry 96 10/19/23 16:14 10/19/23 16:00 10/19/23 21:07 Temperature 98.4 F 99.0 F Pulse Rate 109 H 108 H 118 H Respiratory Rate 18 20 Blood Pressure 121/83 155/96 H Pulse Oximetry 94 95 10/19/23 20:00 10/20/23 00:00 10/20/23 04:00 Temperature Pulse Rate 118 H 107 H 104 H Respiratory Rate Blood Pressure Pulse Oximetry 10/20/23 05:17 Temperature 97.0 F L Pulse Rate 98 Respiratory Rate 20 Blood Pressure 141/92 H Pulse Oximetry 96 Intake/Output Intake/Output: Intake & Output 10/17/23 10/18/23 10/19/23 10/20/23 23:59 23:59 23:59 23:59 Intake Total 6480 4270 5440 1500 Output Total 2450 3830 4700 2450 Balance 4030 440 740 -950 Meds/Results Medications: Active Medications Generic Name Dose Route Start Last Admin Trade Name Freq PRN Reason Stop Dose Admin Acetaminophen 650 mg 10/16/23 07:03 10/18/23 23:01 Acetaminophen 325 Mg Tablet PO 650 mg Q4H PRN Administration Mild Pain (1-3) or Fever Enoxaparin Sodium 40 mg 10/16/23 09:00 10/19/23 09:56 Enoxaparin 40 Mg/0.4 Ml Syringe SUB-Q 40 mg DAILY JAUN Administration Hydromorphone HCl 1 mg 10/17/23 03:28 10/19/23 13:42 Hydromorphone Hcl Inj (*Crx) 1 Mg/Ml Syr IV PUSH 1 mg Q3H PRN Administration If pain unrelieved by Percocet Sodium Chloride 1,000 mls @ 150 mls/hr 10/16/23 08:20 10/20/23 04:55 Normal Saline Iv IV CONT 150 mls/hr .Q6H40M JAUN Administration Piperacillin Sod/Tazobactam Sod 4.5 gm in 100 mls @ 200 mls/hr 10/17/23 16:00 10/20/23 05:24 Zosyn 4.5 Gm/Ns 100 Ml IVPB Infused Q6H JAUN Infusion Vancomycin HCl 2,000 mg in 500 mls @ 250 mls/hr 10/18/23 17:10/20/23 05:37 Vancomy
[2023-10-20] MEDS: ENOXAPARIN 40 MG/0.4 ML SYRINGE SUB-Q (08:36)
[2023-10-20 09:44] LABS: Procalcitonin 0.4 ng/mL
--- NOTE | 2023-10-20 10:17 | PM.PNGS ---
Progress Note: A&P Assessment and Plan (1) Abscess of right leg: Code(s): L02.415 - Cutaneous abscess of right lower limb Status: Acute Assessment and Plan: He is postop day 2 following I&D complex right calf abscess. No purulent drainage noted on exam. He has two kel drains in place. Continue local wound care with gauze and kerlex dressings with rios wrap for compression. Cultures pending, gram stain showed gram + cocci. WBC count went from 12.2 up to 14.1 today. The localized erythema and induration of the calf is improving, but he is having redness streaking up his thigh and anteriorly towards the knee. Will repeat a CBC again tomorrow. If his WBC count continues to rise or his redness is getting worse, then we will repeat a CT scan of the right lower extremity. Continue IV Zosyn and Vancomycin for now. (2) Cellulitis of right leg: Code(s): L03.115 - Cellulitis of right lower limb Status: Acute Plan I have discussed the patient's case and plan of care with Dr. Whitaker. Subjective Subjective Date/Time Seen: 10/20/23 10:17 Post Op day: 2 (Complex incision and drainage of right posterior calf abscess) Patient reports: no new complaints, feels better, tolerating a regular diet and afebrile (since postop day 0) Interval history: Patient reports overall feeling better. He feels like the pain is better in his right leg. He still has swelling extending down to his foot, but slightly better. He has not been walking much. He feels like he can tolerate walking. No other complaints at this time. Exam Narrative: Right leg dressing removed. Moderate amount of dried arambula bloody drainage on the dressing. There are two [place]on drains in place through two counter incisions, one is tracking cephalad and lateral with the incision just distal to the popliteal fossa and the other is tracking more inferior and medial. No purulent drainage or necrotic tissue noted on exam. Edema still extends down the leg to the foot, but overall edema and induration improved. Erythema improved at the calf but some erythema streaking superiorly up the lateral thigh and to the anterior knee. Const: General: comfortable and no acute distress Objective Data Vital Signs Vital Signs: Vital Signs - 24 hr 10/19/23 12:10/19/23 12:00 10/19/23 16:14 Temperature 98.4 F 98.4 F Pulse Rate 103 H 108 H 109 H Respiratory Rate 19 18 Blood Pressure 124/84 121/83 Pulse Oximetry 96 94 10/19/23 16:00 10/19/23 21:07 10/19/23 20:00 Temperature 99.0 F Pulse Rate 108 H 118 H 118 H Respiratory Rate 20 Blood Pressure 155/96 H Pulse Oximetry 95 10/20/23 00:00 10/20/23 04:00 10/20/23 05:17 Temperature 97.0 F L Pulse Rate 107 H 104 H 98 Respiratory Rate 20 Blood Pressure 141/92 H Pulse Oximetry 96 Intake/Output Intake/Output: Intake & Output 10/17/23 10/18/23 10/19/23 10/20/23 23:59 23:59 23:59 23:59 Intake Total 6480 4270 5440 2260 Output Total 2450 3830 4700 2950 Balance 4030 440 740 -690 Meds/Results Medications: Active Medications Generic Name Dose Route Start Last Admin Trade Name Freq PRN Reason Stop Dose Admin Acetaminophen 650 mg 10/16/23 07:03 10/18/23 23:01 Acetaminophen 325 Mg Tablet PO 650 mg Q4H PRN Administration Mild Pain (1-3) or Fever Enoxaparin Sodium 40 mg 10/16/23 09:00 10/20/23 08:36 Enoxaparin 40 Mg/0.4 Ml Syringe SUB-Q 40 mg DAILY JAUN Administration Hydromorphone HCl 1 mg 10/17/23 03:28 10/19/23 13:42 Hydromorphone Hcl Inj (*Crx) 1 Mg/Ml Syr IV PUSH 1 mg Q3H PRN Administration If pain unrelieved by Percocet Sodium Chloride 1,000 mls @ 150 mls/hr 10/16/23 08:20 10/20/23 04:55 Normal Saline Iv IV CONT 150 mls/hr .Q6H40M JAUN Administration Piperacillin Sod/Tazobactam Sod 4.5 gm in 100 mls @ 200 mls/hr 10/17/23 16:00 10/20/23 09:39 Zosyn 4.5 Gm/Ns 100 Ml IVPB 200 mls/hr Q6H JAUN Administration Vancomycin HC
[2023-10-20] MEDS: cefTRIAXone 2 GM/NS 100 ML 2 GM/100 ML BAG IVPB (17:15)
[2023-10-21] VITALS (12 sets, daily range): BP systolic 155–164; BP diastolic 94–109; PULSE 73–103; RESP 14–20; TEMP 36.1–37.6; O2SAT 93–100
[2023-10-21] MEDS: SODIUM CHLORIDE 0.9% IV 1,000 ML 150 ML IV CONT ×2 (04:07→14:27)
[2023-10-21] MEDS: ACETAMINOPHEN 325 MG TABLET 650 MG PO (04:07)
[2023-10-21 05:08] LABS: Basophils Absolute Auto 0.1 K/mm3 (0.0-0.1); Basophils Percent Auto 0.6 % (0.2-1.2); Eosinophils Absolute Auto 0.6 K/mm3 (0-0.3); Eosinophils Percent Auto 3.8 % (0-4.4); Hematocrit 37.2 % (42.0-52.0); Hemoglobin 12.3 g/dL (14.0-18.0); Immature Granulocyte Absolute 0.18 K/mm3 (0.00-0.031); Immature Granulocyte Percent A 1.2 % (0-0.5); Lymphocytes Absolute Auto 1.69 K/mm3 (0.9-3.2); Lymphocytes Percent Auto 10.9 % (18.3-44.2); Mean Corpuscular HGB Conc 33.1 g/dl (32-36); Mean Corpuscular Hemoglobin 29.4 pg (26-34); Mean Corpuscular Volume 88.8 fl (80-100); Mean Platelet Volume 9.2 fl (7.4-10.4); Monocytes Absolute Auto 1.1 K/mm3 (0.1-0.6); Neutrophils Absolute Auto 11.9 K/mm3 (1.3-6.7); Neutrophils Percent Auto 76.5 % (45.5-73.1); Platelet Count Result 293 k/mm3 (150-375); Red Blood Count 4.19 M/mm3 (4.6-6.20); Red Cell Distribution Width 13.5 % (11.5-14.5); White Blood Count 15.5 K/mm3 (4.5-10.0)
[2023-10-21 05:18] LABS: Anion Gap 7 mmol/L (4-12); Blood Urea Nitrogen 10 mg/dL (9-20); Calcium 8.4 mg/dL (8.4-10.2); Carbon Dioxide 23 mmol/L (22-30); Chloride 105 mmol/L (98-107); Estimated CRCL calculation 105 ml/min; Estimated Glomerular Filt Rate > 60; Glucose 128 mg/dL (65-110); Potassium 3.6 mmol/L (3.4-5.0); Sodium 135 mmol/L (137-145)
[2023-10-21 05:38] LABS: Procalcitonin 0.3 ng/mL
[2023-10-21] MEDS: ENOXAPARIN 40 MG/0.4 ML SYRINGE SUB-Q (09:34)
--- NOTE | 2023-10-21 13:58 | PM.IMPN ---
Progress Note: A&P Assessment and Plan (1) Cellulitis of right leg: Code(s): L03.115 - Cellulitis of right lower limb Status: Acute (2) Sepsis: Code(s): A41.9 - Sepsis, unspecified organism Status: Acute Plan Cellulitis of right lower extremity , complex right calf abscess. Secondary to insect bite Has been on vancomycin, clindamycin the Unasyn IV since admission pt had worse leg swelling, skin is tight continue vancomycin clindamycin and changed to Zosyn 10/17 CT scan of right leg does not show necrotizing fasciitis Consult general surgeon for evaluation treatment. Appreciate general surgeon consultation Performed I and D of right calf abscess on 10/17 pending wound culture; Scant growth of Group A Streptococcus isolated dc clindamycin per ID pharmacist recommendation 10/18 continue vancomycin and Zosyn This has been switched to ceftriaxone. Leukocytosis still persistent. Will continue to monitor area of erythema Sepsis Patient has leukocytosis 17,500, tachycardia tachypnea, meeting criteria for sepsis Start fluid resuscitation Follow-up blood culture : No growth so far wound cultures: see above afeb o/n Subjective Date/time seen: 10/21/23 13:58 Interval history: no new complaints. mild fever earlier today. Redness on the thigh present which is also noted yesterday. CT reviewed. Review of Systems Review of Systems: All systems reviewed & are unremarkable except as noted in HPI and below Exam Narrative: GENERAL: Pleasant, in no acute distress. Well-nourished. - EYES: EOMI. Anicteric. - HENT: Moist mucous membranes. - LUNGS: Clear to auscultation bilaterally, no wheezing, rhonchi, or rales. - CARDIOVASCULAR: Regular rate and rhythm. No murmur. No JVD. - ABDOMEN: Soft, non-tender and non-distended. No palpable masses. - EXTREMITIES: - ve edema. Peripheral pulses 2+. Non-tender. - NEUROLOGIC: No focal neurological deficits. CN II-XII grossly intact. - PSYCHIATRIC: Awake, Alert and oriented x 3. Appropriate mood and affect. - SKIN: redness that goes all the way to hip; swelling of right lower extremity over the calf with dresssing in place Objective Data Vital Signs Vital Signs: Vital Signs - 24 hr 10/20/23 14:00 10/20/23 16:00 10/20/23 18:44 Temperature 98.8 F 98.2 F Pulse Rate 100 91 96 Respiratory Rate 18 20 Blood Pressure 154/99 H 160/83 H Pulse Oximetry 96 97 10/20/23 21:12 10/20/23 20:00 10/21/23 03:10 Temperature 98.7 F 99.3 F Pulse Rate 96 100 Respiratory Rate 20 Blood Pressure 134/88 Pulse Oximetry 97 10/21/23 00:00 10/21/23 04:00 10/21/23 05:24 Temperature 99.7 F H Pulse Rate 95 103 H 95 Respiratory Rate 20 Blood Pressure 155/96 H Pulse Oximetry 100 10/21/23 08:00 10/21/23 12:00 Temperature Pulse Rate 86 73 Respiratory Rate Blood Pressure Pulse Oximetry Intake/Output Intake/Output: Intake & Output 10/18/23 10/19/23 10/20/23 10/21/23 23:59 23:59 23:59 23:59 Intake Total 4270 5440 5160 2810 Output Total 3836 1458 6023 5456 Balance 440 216 -358 -2406 Meds/Results Medications: Active Medications Generic Name Dose Route Start Last Admin Trade Name Freq PRN Reason Stop Dose Admin Acetaminophen 650 mg 10/16/23 07:03 10/21/23 04:07 Acetaminophen 325 Mg Tablet PO 650 mg Q4H PRN Administration Mild Pain (1-3) or Fever Enoxaparin Sodium 40 mg 10/16/23 09:00 10/21/23 09:34 Enoxaparin 40 Mg/0.4 Ml Syringe SUB-Q 40 mg DAILY JAUN Administration Hydromorphone HCl 1 mg 10/17/23 03:28 10/19/23 13:42 Hydromorphone Hcl Inj (*Crx) 1 Mg/Ml Syr IV PUSH 1 mg Q3H PRN Administration If pain unrelieved by Percocet Sodium Chloride 1,000 mls @ 150 mls/hr 10/16/23 08:20 10/21/23 04:07 Normal Saline Iv IV CONT 150 mls/hr .Q6H40M JAUN Administration Ceftriaxone Sodium 2 gm in 100 mls @ 200 mls/hr 10/20/23 16:00 10/20/23 17:45 Rocephin 2 Gm/Ns 100
[2023-10-21] MEDS: cefTRIAXone 2 GM/NS 100 ML 2 GM/100 ML BAG IVPB (15:12)
--- NOTE | 2023-10-21 15:21 | WPDPN ---
Progress Note: A&P Assessment and Plan (1) Abscess of right leg: Code(s): L02.415 - Cutaneous abscess of right lower limb Status: Acute Assessment and Plan: Postop day 2 after incision and drainage of complex abscess in the right lower extremity. He still has significant redness of the left thigh but the area of the drainage seems to be improved. Repeat CT scan of the right lower extremity showed no areas of undrained abscess or significant fluid collections. Cultures have grown out Streptococcus species. Continue present IV me antibiotic management. Continue trending his white blood cell count. Will follow. Subjective Date/time seen: 10/21/23 15:21 Interval history: Patient states that his right leg feels better today. Wound has been dressed already today. When I looked at earlier this morning they are worse some mild streaking up on the anterior upper thigh region which was worse than yesterday. CT scan of the right lower extremity showed no retained fluid collections that are significant or abscess. Cultures have grown asked Streptococcus species which should be sensitive to the antibiotics which are on board. Ceftriaxone was added and clindamycin was stopped. Exam Extrem: Other: right lower extremity wounds with [place] drains in place x2. Drainage is serous. There is mild redness streaking up his left thigh but no worsening tenderness. No necrotic tissue in the wound noted. Objective Data Vital Signs Vital Signs: Vital Signs - 24 hr 10/20/23 16:00 10/20/23 18:44 10/20/23 21:12 Temperature 36.8 C 37.1 C Pulse Rate 91 96 96 Respiratory Rate 20 20 Blood Pressure 160/83 H 134/88 Pulse Oximetry 97 97 10/20/23 20:00 10/21/23 03:10 10/21/23 00:00 Temperature 37.4 C Pulse Rate 100 95 Respiratory Rate Blood Pressure Pulse Oximetry 10/21/23 04:00 10/21/23 05:24 10/21/23 08:00 Temperature 37.6 C H Pulse Rate 103 H 95 86 Respiratory Rate 20 Blood Pressure 155/96 H Pulse Oximetry 100 10/21/23 12:00 10/21/23 14:00 Temperature 36.2 C L Pulse Rate 73 94 Respiratory Rate 18 Blood Pressure 160/109 H Pulse Oximetry 96 Intake/Output Intake/Output: Intake & Output 10/18/23 10/19/23 10/20/23 10/21/23 23:59 23:59 23:59 23:59 Intake Total 4270 5440 5160 4170 Output Total 8397 0994 9430 3439 Balance 440 909 -666 -0664 Meds/Results Medications: Active Medications Generic Name Dose Route Start Last Admin Trade Name Freq PRN Reason Stop Dose Admin Acetaminophen 650 mg 10/16/23 07:03 10/21/23 04:07 Acetaminophen 325 Mg Tablet PO 650 mg Q4H PRN Administration Mild Pain (1-3) or Fever Enoxaparin Sodium 40 mg 10/16/23 09:00 10/21/23 09:34 Enoxaparin 40 Mg/0.4 Ml Syringe SUB-Q 40 mg DAILY JAUN Administration Hydromorphone HCl 1 mg 10/17/23 03:28 10/19/23 13:42 Hydromorphone Hcl Inj (*Crx) 1 Mg/Ml Syr IV PUSH 1 mg Q3H PRN Administration If pain unrelieved by Percocet Ceftriaxone Sodium 2 gm in 100 mls @ 200 mls/hr 10/20/23 16:00 10/21/23 15:12 Rocephin 2 Gm/Ns 100 Ml IVPB 200 mls/hr Q24H JAUN Administration Metoclopramide HCl 10 mg 10/16/23 08:19 Metoclopramide Hcl Inj 10 Mg/2 Ml Vial IV PUSH Q6H PRN Nausea And Vomiting Ondansetron HCl 4 mg 10/16/23 07:03 Ondansetron Inj 4 Mg/2 Ml Vial IV PUSH Q4H PRN Nausea Oxycodone/Acetaminophen 1 tablet 10/16/23 08:19 10/20/23 20:16 Oxycodone/Acetaminophen (*Crx) 5-325 Mg Tablet PO 1 tablet Q4H PRN Administration Pain Rated 7-10 Radiology Results: ITS Impressions Tibia/Fibula X-Ray 10/16/23 06:22 IMPRESSION: 1. No acute osseous abnormality. Venous Doppler Study 10/20/23 17:09 IMPRESSION: Patent right lower extremity veins. No evidence of deep venous thrombosis. Lower Extremity CT 10/21/23 08:44 IMPRESSION: 1. Subcutaneous packing material in the lower leg with trace
[2023-10-21] MEDS: ONDANSETRON INJ 4 MG/2 ML VIAL IV PUSH (19:15)
[2023-10-22] VITALS (7 sets, daily range): BP systolic 127–137; BP diastolic 65–91; PULSE 89–99; RESP 14–18; TEMP 35.6–36.3; O2SAT 93–94
[2023-10-22 06:43] LABS: Basophils Absolute Auto 0.1 K/mm3 (0.0-0.1); Basophils Percent Auto 0.5 % (0.2-1.2); Eosinophils Absolute Auto 0.5 K/mm3 (0-0.3); Eosinophils Percent Auto 3.1 % (0-4.4); Hematocrit 40.2 % (42.0-52.0); Hemoglobin 13.5 g/dL (14.0-18.0); Immature Granulocyte Absolute 0.31 K/mm3 (0.00-0.031); Immature Granulocyte Percent A 1.9 % (0-0.5); Lymphocytes Absolute Auto 2.24 K/mm3 (0.9-3.2); Mean Corpuscular HGB Conc 33.6 g/dl (32-36); Mean Corpuscular Volume 86.3 fl (80-100); Mean Platelet Volume 9.3 fl (7.4-10.4); Monocytes Absolute Auto 1.2 K/mm3 (0.1-0.6); Monocytes Percent Auto 7.2 % (2.6-8.5); Neutrophils Absolute Auto 11.7 K/mm3 (1.3-6.7); Neutrophils Percent Auto 73.3 % (45.5-73.1); Platelet Count Result 364 k/mm3 (150-375); Red Blood Count 4.66 M/mm3 (4.6-6.20); Red Cell Distribution Width 13.3 % (11.5-14.5)
[2023-10-22 06:44] LABS: Alanine Aminotransferase 28 U/L (6-50); Albumin Level 3.9 g/dL (3.5-5.1); Alkaline Phosphatase 122 U/L (38-126); Anion Gap 9 mmol/L (4-12); Aspartate Amino Transferase 31 U/L (17-59); Bilirubin,Total 0.6 mg/dL (0.2-1.3); Blood Urea Nitrogen 12 mg/dL (9-20); Calcium 8.8 mg/dL (8.4-10.2); Carbon Dioxide 26 mmol/L (22-30); Chloride 101 mmol/L (98-107); Estimated CRCL calculation 105 ml/min; Estimated Glomerular Filt Rate > 60; Glucose 107 mg/dL (65-110); Magnesium 2.3 mg/dL (1.6-2.3); Potassium 3.9 mmol/L (3.4-5.0); Sodium 136 mmol/L (137-145)
[2023-10-22 07:08] LABS: Procalcitonin 0.2 ng/mL
[2023-10-22] MEDS: ENOXAPARIN 40 MG/0.4 ML SYRINGE SUB-Q (08:22)
--- NOTE | 2023-10-22 11:06 | WPDPN ---
Progress Note: A&P Assessment and Plan (1) Abscess of right leg: Code(s): L02.415 - Cutaneous abscess of right lower limb Status: Acute Assessment and Plan: Status post complex incision and drainage of posterior right calf abscess. [place] drains in place. Continue local wound care. Continue Rocephin for IV antibiotics. Clinically the leg is stable in regards to the cellulitis of the thigh region but improved in the abscess cavity and the posterior calf. Continue supportive management and will local wound care. No need for further drainage at this time. Subjective Date/time seen: 10/22/23 11:06 Interval history: Patient's right leg continues to feel better each day. Redness continues to be about the same. He continues ceftriaxone for IV antibiotics directed by his culture results. Tolerating regular diet. No fever. White blood cell count today is 16,000. Essentially stable from yesterday when it was 15,500. Exam Skin: Other: right lower extremity posterior calf abscess cavity is clean and minimal serous drainage. Redness induration is much improved. Stable redness without significant tenderness in the posterior anterior and lateral right thigh region. No fluctuant areas noted. CT scan yesterday showed no drainable abscesses in the area. Objective Data Vital Signs Vital Signs: Vital Signs - 24 hr 10/21/23 12:00 10/21/23 14:00 10/21/23 15:30 Temperature 36.2 C L Pulse Rate 73 94 Respiratory Rate 18 Blood Pressure 160/109 H 155/103 H Pulse Oximetry 96 Oxygen Delivery Fraction of Inspired Oxygen 10/21/23 16:00 10/21/23 20:00 10/21/23 20:00 Temperature Pulse Rate 95 97 Respiratory Rate Blood Pressure Pulse Oximetry Oxygen Delivery Room Air Fraction of Inspired Oxygen 10/21/23 21:30 10/22/23 00:00 10/21/23 22:33 Temperature 36.1 C L Pulse Rate 100 93 Respiratory Rate 14 Blood Pressure 164/94 H Pulse Oximetry 93 93 Oxygen Delivery Room Air Fraction of Inspired Oxygen 21 10/22/23 04:00 10/22/23 05:13 10/22/23 08:00 Temperature 36.3 C L Pulse Rate 89 93 Respiratory Rate 14 Blood Pressure 137/91 H Pulse Oximetry 93 Oxygen Delivery Room Air Fraction of Inspired Oxygen Intake/Output Intake/Output: Intake & Output 06/26/24 10/20/23 10/21/23 10/22/23 23:59 23:59 23:59 23:59 Intake Total 5457 7499 4937 500 Output Total 6545 6055 5953 5995 Balance 130 -694 -6951 -320 Meds/Results Medications: Active Medications Generic Name Dose Route Start Last Admin Trade Name Freq PRN Reason Stop Dose Admin Acetaminophen 650 mg 10/16/23 07:03 10/21/23 04:07 Acetaminophen 325 Mg Tablet PO 650 mg Q4H PRN Administration Mild Pain (1-3) or Fever Enoxaparin Sodium 40 mg 10/16/23 09:00 10/22/23 08:22 Enoxaparin 40 Mg/0.4 Ml Syringe SUB-Q 40 mg DAILY JAUN Administration Hydromorphone HCl 1 mg 10/17/23 03:28 10/19/23 13:42 Hydromorphone Hcl Inj (*Crx) 1 Mg/Ml Syr IV PUSH 1 mg Q3H PRN Administration If pain unrelieved by Percocet Ceftriaxone Sodium 2 gm in 100 mls @ 200 mls/hr 10/20/23 16:00 10/21/23 15:42 Rocephin 2 Gm/Ns 100 Ml IVPB Infused Q24H JAUN Infusion Metoclopramide HCl 10 mg 10/16/23 08:19 Metoclopramide Hcl Inj 10 Mg/2 Ml Vial IV PUSH Q6H PRN Nausea And Vomiting Ondansetron HCl 4 mg 10/16/23 07:03 10/21/23 19:15 Ondansetron Inj 4 Mg/2 Ml Vial IV PUSH 4 mg Q4H PRN Administration Nausea Oxycodone/Acetaminophen 1 tablet 10/16/23 08:19 10/20/23 20:16 Oxycodone/Acetaminophen (*Crx) 5-325 Mg Tablet PO 1 tablet Q4H PRN Administration Pain Rated 7-10 Radiology Results: ITS Impressions Tibia/Fibula X-Ray 10/16/23 06:22 IMPRESSION: 1. No acute osseous abnormality. Venous Doppler Study 10/20/23 17:09 IMPRESSION: Patent right lower extremity veins. No evidence of deep venous thrombosis.
--- NOTE | 2023-10-22 13:21 | PM.IMPN ---
Progress Note: A&P Assessment and Plan (1) Cellulitis of right leg: Code(s): L03.115 - Cellulitis of right lower limb Status: Acute (2) Sepsis: Code(s): A41.9 - Sepsis, unspecified organism Status: Acute Plan Cellulitis of right lower extremity , complex right calf abscess. Secondary to insect bite Has been on vancomycin, clindamycin the Unasyn IV since admission pt had worse leg swelling, skin is tight continue vancomycin clindamycin and changed to Zosyn 10/17 CT scan of right leg does not show necrotizing fasciitis Consult general surgeon for evaluation treatment. Appreciate general surgeon consultation Performed I and D of right calf abscess on 10/17 pending wound culture; Scant growth of Group A Streptococcus isolated dc clindamycin per ID pharmacist recommendation 10/18 continue vancomycin and Zosyn This has been switched to ceftriaxone. Leukocytosis still persistent. Will continue to monitor area of erythema will add coverage for MRSA due to persistent leukocytosis as could be polymicrobial Sepsis Patient has leukocytosis 17,500, tachycardia tachypnea, meeting criteria for sepsis Start fluid resuscitation Follow-up blood culture : No growth so far wound cultures: see above afeb o/n Subjective Date/time seen: 10/22/23 13:21 Interval history: no overnight events. Right thigh is still red. Remains afebrile. Labs reviewed and persistent leukocytosis noted. Patient has no other complaints. Review of Systems Review of Systems: All systems reviewed & are unremarkable except as noted in HPI and below Exam Narrative: GENERAL: Pleasant, in no acute distress. Well-nourished. - EYES: EOMI. Anicteric. - HENT: Moist mucous membranes. - LUNGS: Clear to auscultation bilaterally, no wheezing, rhonchi, or rales. - CARDIOVASCULAR: Regular rate and rhythm. No murmur. No JVD. - ABDOMEN: Soft, non-tender and non-distended. No palpable masses. - EXTREMITIES: - ve edema. Peripheral pulses 2+. Non-tender. - NEUROLOGIC: No focal neurological deficits. CN II-XII grossly intact. - PSYCHIATRIC: Awake, Alert and oriented x 3. Appropriate mood and affect. - SKIN: redness that goes all the way to hip; swelling of right lower extremity over the calf with dresssing in place Objective Data Vital Signs Vital Signs: Vital Signs - 24 hr 10/21/23 14:00 10/21/23 15:30 10/21/23 16:00 Temperature 97.2 F L Pulse Rate 94 95 Respiratory Rate 18 Blood Pressure 160/109 H 155/103 H Pulse Oximetry 96 Oxygen Delivery Fraction of Inspired Oxygen 10/21/23 20:00 10/21/23 20:00 10/21/23 21:30 Temperature 96.9 F L Pulse Rate 97 100 Respiratory Rate 14 Blood Pressure 164/94 H Pulse Oximetry 93 Oxygen Delivery Room Air Fraction of Inspired Oxygen 10/22/23 00:00 10/21/23 22:33 10/22/23 04:00 Temperature Pulse Rate 93 89 Respiratory Rate Blood Pressure Pulse Oximetry 93 Oxygen Delivery Room Air Fraction of Inspired Oxygen 10/22/23 05:13 10/22/23 08:00 Temperature 97.4 F L Pulse Rate 93 Respiratory Rate 14 Blood Pressure 137/91 H Pulse Oximetry 93 Oxygen Delivery Room Air Fraction of Inspired Oxygen Intake/Output Intake/Output: Intake & Output 10/19/23 10/20/23 10/21/23 10/22/23 23:59 23:59 23:59 23:59 Intake Total 5440 5160 4910 500 Output Total 4700 6011 5950 1200 Balance 962 -865 -1040 -700 Meds/Results Medications: Active Medications Generic Name Dose Route Start Last Admin Trade Name Freq PRN Reason Stop Dose Admin Acetaminophen 650 mg 10/16/23 07:03 10/21/23 04:07 Acetaminophen 325 Mg Tablet PO 650 mg Q4H PRN Administration Mild Pain (1-3) or Fever Enoxaparin Sodium 40 mg 10/16/23 09:00 10/22/23 08:22 Enoxaparin 40 Mg/0.4 Ml Syringe SUB-Q 40 mg DAILY JAUN Administration Hydromorphone HCl 1 mg 10/17/23 03:28 10/19/23 13:42 Hydromorphone Hcl Inj (*Crx) 1 Mg/Ml Syr IV
[2023-10-22] MEDS: VANCOMYCIN 1,250 MG/NS 250 ML 1,250 MG/250 ML BAG 166.67 MG IVPB ×2 (14:19→15:53)
[2023-10-22] MEDS: cefTRIAXone 2 GM/NS 100 ML 2 GM/100 ML BAG IVPB (17:32)
[2023-10-23] MEDS: VANCOMYCIN 1,500 MG/NS 500 ML 1,500 MG/500 ML BAG 250 MG IVPB ×3 (02:25→21:08)
[2023-10-23 05:39] VITALS: BP 139/70; PULSE 93; RESP 13; TEMP 36.2; O2SAT 92
[2023-10-23 06:17] LABS: Basophils Absolute Auto 0.1 K/mm3 (0.0-0.1); Basophils Percent Auto 0.6 % (0.2-1.2); Eosinophils Absolute Auto 0.6 K/mm3 (0-0.3); Eosinophils Percent Auto 3.8 % (0-4.4); Hematocrit 41.5 % (42.0-52.0); Immature Granulocyte Absolute 0.33 K/mm3 (0.00-0.031); Immature Granulocyte Percent A 2.3 % (0-0.5); Lymphocytes Absolute Auto 2.44 K/mm3 (0.9-3.2); Lymphocytes Percent Auto 16.7 % (18.3-44.2); Mean Corpuscular HGB Conc 33.7 g/dl (32-36); Mean Corpuscular Hemoglobin 29.1 pg (26-34); Mean Corpuscular Volume 86.3 fl (80-100); Mean Platelet Volume 9.2 fl (7.4-10.4); Monocytes Percent Auto 6.5 % (2.6-8.5); Neutrophils Absolute Auto 10.2 K/mm3 (1.3-6.7); Neutrophils Percent Auto 70.1 % (45.5-73.1); Platelet Count Result 400 k/mm3 (150-375); Red Blood Count 4.81 M/mm3 (4.6-6.20); Red Cell Distribution Width 13.2 % (11.5-14.5); White Blood Count 14.6 K/mm3 (4.5-10.0)
[2023-10-23 06:47] LABS: Alanine Aminotransferase 28 U/L (6-50); Albumin Level 3.8 g/dL (3.5-5.1); Alkaline Phosphatase 108 U/L (38-126); Anion Gap 9 mmol/L (4-12); Aspartate Amino Transferase 25 U/L (17-59); Bilirubin,Total 0.3 mg/dL (0.2-1.3); Blood Urea Nitrogen 14 mg/dL (9-20); Calcium 8.3 mg/dL (8.4-10.2); Carbon Dioxide 23 mmol/L (22-30); Chloride 106 mmol/L (98-107); Estimated CRCL calculation 105 ml/min; Estimated Glomerular Filt Rate > 60; Glucose 125 mg/dL (65-110); Magnesium 2.3 mg/dL (1.6-2.3); Potassium 3.8 mmol/L (3.4-5.0); Sodium 138 mmol/L (137-145)
[2023-10-23] MEDS: ENOXAPARIN 40 MG/0.4 ML SYRINGE SUB-Q (10:42)
--- NOTE | 2023-10-23 11:50 | WPDPN ---
Progress Note: A&P Assessment and Plan (1) Abscess of right leg: Code(s): L02.415 - Cutaneous abscess of right lower limb Status: Acute Assessment and Plan: Abscess has been drained. No need for further drainage. Minna drains in place and dry dressing. Relevant removed the pen was drains in the office. (2) Cellulitis of right leg: Code(s): L03.115 - Cellulitis of right lower limb Status: Acute Assessment and Plan: Cellulitis of the lower extremity mainly of the right thigh is improving. Continue ceftriaxone IV treatment of the cellulitis due to Streptococcus which was cultured from the right calf abscess. Subjective Date/time seen: 10/23/23 11:50 Interval history: Patient without significant clinical change. White blood cell count is decreased today from 16,000 down to 14,600. No fever. Exam Skin: Other: Swelling and redness around the drained abscess in the right posterior calf region is decreasing. Minimal serous drainage. No necrotic tissue or purulent drainage. The redness on the left anterior lateral thigh region is decreasing as well. No significant tenderness to palpation of the thigh. Objective Data Vital Signs Vital Signs: Vital Signs - 24 hr 10/22/23 14:00 10/22/23 12:00 10/22/23 20:00 Temperature 35.6 C L Pulse Rate 89 99 Respiratory Rate 18 Blood Pressure 134/89 Pulse Oximetry 94 Oxygen Delivery Room Air 10/22/23 22:00 10/23/23 05:39 Temperature 36.1 C L 36.2 C L Pulse Rate 97 93 Respiratory Rate 14 13 Blood Pressure 127/65 139/70 Pulse Oximetry 94 92 Oxygen Delivery Intake/Output Intake/Output: Intake & Output 10/20/23 10/21/23 10/22/23 10/23/23 23:59 23:59 23:59 23:59 Intake Total 5160 4910 2190 1000 Output Total 6040 5950 2250 1000 Balance -865 -1040 -60 0 Meds/Results Medications: Active Medications Generic Name Dose Route Start Last Admin Trade Name Freq PRN Reason Stop Dose Admin Acetaminophen 650 mg 10/16/23 07:03 10/21/23 04:07 Acetaminophen 325 Mg Tablet PO 650 mg Q4H PRN Administration Mild Pain (1-3) or Fever Enoxaparin Sodium 40 mg 10/16/23 09:00 10/23/23 10:42 Enoxaparin 40 Mg/0.4 Ml Syringe SUB-Q 40 mg DAILY JAUN Administration Hydromorphone HCl 1 mg 10/17/23 03:28 10/19/23 13:42 Hydromorphone Hcl Inj (*Crx) 1 Mg/Ml Syr IV PUSH 1 mg Q3H PRN Administration If pain unrelieved by Percocet Ceftriaxone Sodium 2 gm in 100 mls @ 200 mls/hr 10/20/23 16:00 10/22/23 18:02 Rocephin 2 Gm/Ns 100 Ml IVPB Infused Q24H JAUN Infusion Vancomycin HCl 1,500 mg in 500 mls @ 250 mls/hr 10/23/23 03:00 10/23/23 04:33 Vancomycin 1,500 Mg/Ns 500 Ml IVPB Infused Q12H JAUN Infusion Metoclopramide HCl 10 mg 10/16/23 08:19 Metoclopramide Hcl Inj 10 Mg/2 Ml Vial IV PUSH Q6H PRN Nausea And Vomiting Ondansetron HCl 4 mg 10/16/23 07:03 10/21/23 19:15 Ondansetron Inj 4 Mg/2 Ml Vial IV PUSH 4 mg Q4H PRN Administration Nausea Oxycodone/Acetaminophen 1 tablet 10/16/23 08:19 10/20/23 20:16 Oxycodone/Acetaminophen (*Crx) 5-325 Mg Tablet PO 1 tablet Q4H PRN Administration Pain Rated 7-10 Radiology Results: ITS Impressions Tibia/Fibula X-Ray 10/16/23 06:22 IMPRESSION: 1. No acute osseous abnormality. Venous Doppler Study 10/20/23 17:09 IMPRESSION: Patent right lower extremity veins. No evidence of deep venous thrombosis. Lower Extremity CT 10/21/23 08:44 IMPRESSION: 1. Subcutaneous packing material in the lower leg with trace fluid adjacent to the packing material. Labs Labs: Laboratory Results - last 24 hr 10/23/23 05:28 WBC 14.6 H RBC 4.81 Hgb 14.0 Hct 41.5 L MCV 86.3 MCH 29.1 MCHC 33.7 RDW 13.2 Plt Count 400 H MPV 9.2 Immature Gran % (Auto) 2.3 H Neut % (Auto) 70.1 Lymph % (Auto) 16.7 L [place] % (Auto) 6.5 Eos % (Auto) 3.8 Baso % (Auto) 0.6 Lymph #
--- NOTE | 2023-10-23 12:41 | PM.IMPN ---
Progress Note: A&P Assessment and Plan (1) Cellulitis of right leg: Code(s): L03.115 - Cellulitis of right lower limb Status: Acute (2) Sepsis: Code(s): A41.9 - Sepsis, unspecified organism Status: Acute Plan Cellulitis of right lower extremity , complex right calf abscess. Secondary to insect bite Has been on vancomycin, clindamycin the Unasyn IV since admission pt had worse leg swelling, skin is tight continue vancomycin clindamycin and changed to Zosyn 10/17 CT scan of right leg does not show necrotizing fasciitis Consult general surgeon for evaluation treatment. Appreciate general surgeon consultation Performed I and D of right calf abscess on 10/17 pending wound culture; Scant growth of Group A Streptococcus isolated dc clindamycin per ID pharmacist recommendation 10/18 continue vancomycin and Zosyn This has been switched to ceftriaxone. Leukocytosis still persistent. Will continue to monitor area of erythema. Added coverage for MRSA due to persistent leukocytosis as could be polymicrobial. WBC improved today as well as erythema Sepsis Patient has leukocytosis 17,500, tachycardia tachypnea, meeting criteria for sepsis Start fluid resuscitation Follow-up blood culture : No growth so far wound cultures: see above afeb o/n Subjective Date/time seen: 10/23/23 12:41 Interval history: No overnight events. Redness of the thigh has improved today. Labs reviewed. No other complaints.. Review of Systems Review of Systems: All systems reviewed & are unremarkable except as noted in HPI and below Exam Narrative: GENERAL: Pleasant, in no acute distress. Well-nourished. - EYES: EOMI. Anicteric. - HENT: Moist mucous membranes. - LUNGS: Clear to auscultation bilaterally, no wheezing, rhonchi, or rales. - CARDIOVASCULAR: Regular rate and rhythm. No murmur. No JVD. - ABDOMEN: Soft, non-tender and non-distended. No palpable masses. - EXTREMITIES: - ve edema. Peripheral pulses 2+. Non-tender. - NEUROLOGIC: No focal neurological deficits. CN II-XII grossly intact. - PSYCHIATRIC: Awake, Alert and oriented x 3. Appropriate mood and affect. - SKIN: redness that goes all the way to hip; swelling of right lower extremity over the calf with dresssing in place Objective Data Vital Signs Vital Signs: Vital Signs - 24 hr 10/22/23 14:00 10/22/23 20:00 10/22/23 22:00 Temperature 96.1 F L 96.9 F L Pulse Rate 89 97 Respiratory Rate 18 14 Blood Pressure 134/89 127/65 Pulse Oximetry 94 94 Oxygen Delivery Room Air 10/23/23 05:39 Temperature 97.1 F L Pulse Rate 93 Respiratory Rate 13 Blood Pressure 139/70 Pulse Oximetry 92 Oxygen Delivery Intake/Output Intake/Output: Intake & Output 10/20/23 10/21/23 10/22/23 10/23/23 23:59 23:59 23:59 23:59 Intake Total 5160 4910 2190 1000 Output Total 6025 5950 2250 1000 Balance -865 -1040 -60 0 Meds/Results Medications: Active Medications Generic Name Dose Route Start Last Admin Trade Name Freq PRN Reason Stop Dose Admin Acetaminophen 650 mg 10/16/23 07:03 10/21/23 04:07 Acetaminophen 325 Mg Tablet PO 650 mg Q4H PRN Administration Mild Pain (1-3) or Fever Enoxaparin Sodium 40 mg 10/16/23 09:00 10/23/23 10:42 Enoxaparin 40 Mg/0.4 Ml Syringe SUB-Q 40 mg DAILY JAUN Administration Hydromorphone HCl 1 mg 10/17/23 03:28 10/19/23 13:42 Hydromorphone Hcl Inj (*Crx) 1 Mg/Ml Syr IV PUSH 1 mg Q3H PRN Administration If pain unrelieved by Percocet Ceftriaxone Sodium 2 gm in 100 mls @ 200 mls/hr 10/20/23 16:00 10/22/23 18:02 Rocephin 2 Gm/Ns 100 Ml IVPB Infused Q24H JAUN Infusion Vancomycin HCl 1,500 mg in 500 mls @ 250 mls/hr 10/23/23 03:00 10/23/23 04:33 Vancomycin 1,500 Mg/Ns 500 Ml IVPB Infused Q12H JAUN Infusion Metoclopramide HCl 10 mg 10/16/23 08:19 Metoclopramide Hcl Inj 10 Mg/2 Ml Vial IV PUSH Q6H PRN Nausea And Vomiting Ondansetron
[2023-10-23 14:00] VITALS: BP 118/80; PULSE 102; RESP 20; TEMP 35.6; O2SAT 95
[2023-10-23 20:31] VITALS: BP 127/71; PULSE 87; RESP 16; TEMP 36.2; O2SAT 94
[2023-10-23] MEDS: cefTRIAXone 2 GM/NS 100 ML 2 GM/100 ML BAG IVPB (21:08)
[2023-10-24 06:00] VITALS: BP 115/85; PULSE 91; RESP 18; TEMP 36.2; O2SAT 94
[2023-10-24 08:00] VITALS: O2SAT 94
[2023-10-24] MEDS: ENOXAPARIN 40 MG/0.4 ML SYRINGE SUB-Q (08:48)
[2023-10-24 09:00] LABS: Basophils Absolute Auto 0.1 K/mm3 (0.0-0.1); Basophils Percent Auto 0.6 % (0.2-1.2); Eosinophils Absolute Auto 0.6 K/mm3 (0-0.3); Eosinophils Percent Auto 4.1 % (0-4.4); Hematocrit 43.2 % (42.0-52.0); Hemoglobin 14.2 g/dL (14.0-18.0); Immature Granulocyte Absolute 0.22 K/mm3 (0.00-0.031); Immature Granulocyte Percent A 1.6 % (0-0.5); Lymphocytes Absolute Auto 2.37 K/mm3 (0.9-3.2); Lymphocytes Percent Auto 16.9 % (18.3-44.2); Mean Corpuscular HGB Conc 32.9 g/dl (32-36); Mean Corpuscular Hemoglobin 28.9 pg (26-34); Mean Corpuscular Volume 87.8 fl (80-100); Mean Platelet Volume 8.8 fl (7.4-10.4); Monocytes Absolute Auto 0.8 K/mm3 (0.1-0.6); Monocytes Percent Auto 5.6 % (2.6-8.5); Neutrophils Percent Auto 71.2 % (45.5-73.1); Platelet Count Result 419 k/mm3 (150-375); Red Blood Count 4.92 M/mm3 (4.6-6.20); Red Cell Distribution Width 13.2 % (11.5-14.5)
[2023-10-24 09:21] LABS: Vancomycin Trough 14.2 ug/mL (10.0-20.0)
[2023-10-24 09:56] LABS: Alanine Aminotransferase 33 U/L (6-50); Albumin Level 3.7 g/dL (3.5-5.1); Alkaline Phosphatase 101 U/L (38-126); Anion Gap 6 mmol/L (4-12); Aspartate Amino Transferase 29 U/L (17-59); Bilirubin,Total 0.4 mg/dL (0.2-1.3); Blood Urea Nitrogen 13 mg/dL (9-20); Calcium 8.7 mg/dL (8.4-10.2); Carbon Dioxide 27 mmol/L (22-30); Chloride 104 mmol/L (98-107); Estimated CRCL calculation 87 ml/min; Estimated Glomerular Filt Rate > 60; Glucose 154 mg/dL (65-110); Magnesium 2.3 mg/dL (1.6-2.3); Potassium 4.2 mmol/L (3.4-5.0); Sodium 137 mmol/L (137-145)
[2023-10-24] MEDS: VANCOMYCIN 1,500 MG/NS 500 ML 1,500 MG/500 ML BAG 250 MG IVPB (10:15)
--- NOTE | 2023-10-24 11:02 | PCNWS ---
Weekly nutritional screen. Patient is tolerating current heart healthy diet. Noted charted intake is poor, pt states he is having food brought in and has a good appetite with adequate intake. No weight loss reported. No nutritional needs at this time.
--- NOTE | 2023-10-24 12:16 | PM.IMPN ---
Progress Note: A&P Assessment and Plan (1) Cellulitis of right leg: Code(s): L03.115 - Cellulitis of right lower limb Status: Acute (2) Sepsis: Code(s): A41.9 - Sepsis, unspecified organism Status: Acute Plan Cellulitis of right lower extremity , complex right calf abscess. Secondary to insect bite Has been on vancomycin, clindamycin the Unasyn IV since admission pt had worse leg swelling, skin is tight continue vancomycin clindamycin and changed to Zosyn 10/17 CT scan of right leg does not show necrotizing fasciitis Consult general surgeon for evaluation treatment. Appreciate general surgeon consultation Performed I and D of right calf abscess on 10/17 pending wound culture; Scant growth of Group A Streptococcus isolated dc clindamycin per ID pharmacist recommendation 10/18 continue vancomycin and Zosyn This has been switched to ceftriaxone. Leukocytosis still persistent. Will continue to monitor area of erythema. Added coverage for MRSA due to persistent leukocytosis as could be polymicrobial. WBC slowly improving. Erythema resolved. Anticipate oral antibiotics at discharge Sepsis Patient has leukocytosis 17,500, tachycardia tachypnea, meeting criteria for sepsis Start fluid resuscitation Follow-up blood culture : No growth so far wound cultures: see above afeb o/n Subjective Date/time seen: 10/24/23 12:16 Interval history: No new complaints. Redness is resolved. Feeling better. IV line was placed yesterday. Review of Systems Review of Systems: All systems reviewed & are unremarkable except as noted in HPI and below Exam Narrative: GENERAL: Pleasant, in no acute distress. Well-nourished. - EYES: EOMI. Anicteric. - HENT: Moist mucous membranes. - LUNGS: Clear to auscultation bilaterally, no wheezing, rhonchi, or rales. - CARDIOVASCULAR: Regular rate and rhythm. No murmur. No JVD. - ABDOMEN: Soft, non-tender and non-distended. No palpable masses. - EXTREMITIES: - ve edema. Peripheral pulses 2+. Non-tender. - NEUROLOGIC: No focal neurological deficits. CN II-XII grossly intact. - PSYCHIATRIC: Awake, Alert and oriented x 3. Appropriate mood and affect. - SKIN: redness that goes all the way to hip has resolved now; swelling of right lower extremity over the calf with dresssing in place Objective Data Vital Signs Vital Signs: Vital Signs - 24 hr 10/23/23 14:00 10/23/23 20:00 10/23/23 20:31 Temperature 96.0 F L 97.1 F L Pulse Rate 102 H 87 Respiratory Rate 20 16 Blood Pressure 118/80 127/71 Pulse Oximetry 95 94 Oxygen Delivery Room Air 10/24/23 06:00 10/24/23 08:00 Temperature 97.1 F L Pulse Rate 91 Respiratory Rate 18 Blood Pressure 115/85 Pulse Oximetry 94 94 Oxygen Delivery Room Air Intake/Output Intake/Output: Intake & Output 10/21/23 10/22/23 10/23/23 10/24/23 23:59 23:59 23:59 23:59 Intake Total 4910 2190 1841.7 120 Output Total 5950 2250 1000 1500 Balance -1040 -60 841.7 -1380 Meds/Results Medications: Active Medications Generic Name Dose Route Start Last Admin Trade Name Freq PRN Reason Stop Dose Admin Acetaminophen 650 mg 10/16/23 07:03 10/21/23 04:07 Acetaminophen 325 Mg Tablet PO 650 mg Q4H PRN Administration Mild Pain (1-3) or Fever Enoxaparin Sodium 40 mg 10/16/23 09:00 10/24/23 08:48 Enoxaparin 40 Mg/0.4 Ml Syringe SUB-Q 40 mg DAILY JAUN Administration Hydromorphone HCl 1 mg 10/17/23 03:28 10/19/23 13:42 Hydromorphone Hcl Inj (*Crx) 1 Mg/Ml Syr IV PUSH 1 mg Q3H PRN Administration If pain unrelieved by Percocet Ceftriaxone Sodium 2 gm in 100 mls @ 200 mls/hr 10/23/23 21:00 10/23/23 21:38 Rocephin 2 Gm/Ns 100 Ml IVPB Infused Q24H JAUN Infusion Vancomycin HCl 1,500 mg in 500 mls @ 250 mls/hr 10/23/23 22:00 10/24/23 10:15 Vancomycin 1,500 Mg/Ns 500 Ml IVPB 250 mls/hr Q12H JAUN Administration Metoclopramide HCl 10 mg 10/16/23 08:19 Ut
[2023-10-24 14:00] VITALS: BP 140/79; PULSE 86; RESP 20; TEMP 35.6; O2SAT 96
[2023-10-24] MEDS: LINEZOLID 600 MG TABLET PO (20:36)
[2023-10-24 21:32] VITALS: BP 148/93; PULSE 91; RESP 14; TEMP 36.1; O2SAT 99
[2023-10-25 05:22] VITALS: BP 131/98; PULSE 97; RESP 16; TEMP 36.1; O2SAT 98
[2023-10-25 06:59] LABS: Basophils Absolute Auto 0.1 K/mm3 (0.0-0.1); Basophils Percent Auto 0.8 % (0.2-1.2); Eosinophils Absolute Auto 0.4 K/mm3 (0-0.3); Eosinophils Percent Auto 3.2 % (0-4.4); Hematocrit 46.5 % (42.0-52.0); Hemoglobin 14.9 g/dL (14.0-18.0); Immature Granulocyte Absolute 0.17 K/mm3 (0.00-0.031); Immature Granulocyte Percent A 1.2 % (0-0.5); Lymphocytes Absolute Auto 2.43 K/mm3 (0.9-3.2); Lymphocytes Percent Auto 17.8 % (18.3-44.2); Mean Corpuscular Hemoglobin 28.8 pg (26-34); Mean Corpuscular Volume 89.9 fl (80-100); Monocytes Absolute Auto 0.6 K/mm3 (0.1-0.6); Monocytes Percent Auto 4.2 % (2.6-8.5); Neutrophils Absolute Auto 9.9 K/mm3 (1.3-6.7); Neutrophils Percent Auto 72.8 % (45.5-73.1); Platelet Count Result 427 k/mm3 (150-375); Red Blood Count 5.17 M/mm3 (4.6-6.20); White Blood Count 13.7 K/mm3 (4.5-10.0)
[2023-10-25 07:02] LABS: Alanine Aminotransferase 43 U/L (6-50); Alkaline Phosphatase 99 U/L (38-126); Anion Gap 9 mmol/L (4-12); Aspartate Amino Transferase 37 U/L (17-59); Bilirubin,Total 0.6 mg/dL (0.2-1.3); Blood Urea Nitrogen 16 mg/dL (9-20); Calcium 8.6 mg/dL (8.4-10.2); Carbon Dioxide 22 mmol/L (22-30); Chloride 106 mmol/L (98-107); Estimated CRCL calculation 105 ml/min; Estimated Glomerular Filt Rate > 60; Glucose 104 mg/dL (65-110); Magnesium 2.5 mg/dL (1.6-2.3); Potassium 4.3 mmol/L (3.4-5.0); Sodium 137 mmol/L (137-145)
[2023-10-25 08:00] VITALS: O2SAT 98
[2023-10-25] MEDS: ENOXAPARIN 40 MG/0.4 ML SYRINGE SUB-Q (09:30)
[2023-10-25] MEDS: LINEZOLID 600 MG TABLET PO ×2 (09:30→20:17)
--- NOTE | 2023-10-25 12:32 | PM.PNGS ---
Progress Note: A&P Assessment and Plan (1) Abscess of right leg: Code(s): L02.415 - Cutaneous abscess of right lower limb Status: Acute Assessment and Plan: Abscess has been adequately drained. Kel drains in place with dry dressings being changed daily. Will plan to discharge him with the kel drains and can have him return to the office for them to be removed by Dr. Whitaker eventually after discharge. (2) Cellulitis of right leg: Code(s): L03.115 - Cellulitis of right lower limb Status: Acute Assessment and Plan: Cellulitis of the right lower extremity continues to improve. He was transitioned to oral Linezolid yesterday. WBC still coming down to 13.7 today. Will repeat labs again tomorrow morning. If the cellulitis continues to improve and his WBC is trending down, then he can discharge home with another 7-10 days of oral antibiotics and follow-up as an outpatient. Plan I have discussed the patient's case and plan of care with Dr. Whitaker. Subjective Subjective Date/Time Seen: 10/25/23 12:32 Post Op day: 7 (complex I&D right posterior calf abscess) Patient reports: no new complaints, tolerating a regular diet and afebrile Interval history: Patient doing well today. No specific complaints. No pain in his right leg. He feels the swelling continues to improve. WBC down to 13k today. Exam Const: General: comfortable and no acute distress Skin: Other: Right leg dressing removed. Swelling and redness around the drained abscess in the right posterior calf region continues to improve with no residual redness and only minimal swelling. Minimal serous drainage. No necrotic tissue or purulent drainage. The redness on the left anterior lateral thigh region continues to improve. No significant tenderness to palpation of the thigh. Objective Data Vital Signs Vital Signs: Vital Signs - 24 hr 10/24/23 14:00 10/24/23 20:35 10/24/23 21:32 Temperature 96.0 F L 97.0 F L Pulse Rate 86 91 Respiratory Rate 20 14 Blood Pressure 140/79 148/93 H Pulse Oximetry 96 99 Oxygen Delivery Room Air 10/25/23 05:22 10/25/23 08:00 Temperature 97.0 F L Pulse Rate 97 Respiratory Rate 16 Blood Pressure 131/98 H Pulse Oximetry 98 98 Oxygen Delivery Room Air Intake/Output Intake/Output: Intake & Output 10/22/23 10/23/23 10/24/23 10/25/23 23:59 23:59 23:59 23:59 Intake Total 2190 1841.7 1082 440 Output Total 2250 1000 2200 400 Balance -60 841.7 -1118 40 Meds/Results Medications: Active Medications Generic Name Dose Route Start Last Admin Trade Name Freq PRN Reason Stop Dose Admin Acetaminophen 650 mg 10/16/23 07:03 10/21/23 04:07 Acetaminophen 325 Mg Tablet PO 650 mg Q4H PRN Administration Mild Pain (1-3) or Fever Enoxaparin Sodium 40 mg 10/16/23 09:00 10/25/23 09:30 Enoxaparin 40 Mg/0.4 Ml Syringe SUB-Q 40 mg DAILY JAUN Administration Hydromorphone HCl 1 mg 10/17/23 03:28 10/19/23 13:42 Hydromorphone Hcl Inj (*Crx) 1 Mg/Ml Syr IV PUSH 1 mg Q3H PRN Administration If pain unrelieved by Percocet Linezolid 600 mg 10/24/23 21:00 10/25/23 09:30 Linezolid 600 Mg Tablet PO 10/31/23 09:01 600 mg Q12HR JAUN Administration Ondansetron HCl 4 mg 10/16/23 07:03 10/21/23 19:15 Ondansetron Inj 4 Mg/2 Ml Vial IV PUSH 4 mg Q4H PRN Administration Nausea Oxycodone/Acetaminophen 1 tablet 10/16/23 08:19 10/20/23 20:16 Oxycodone/Acetaminophen (*Crx) 5-325 Mg Tablet PO 1 tablet Q4H PRN Administration Pain Rated 7-10 Radiology Results: ITS Impressions Tibia/Fibula X-Ray 10/16/23 06:22 IMPRESSION: 1. No acute osseous abnormality. Venous Doppler Study 10/20/23 17:09 IMPRESSION: Patent right lower extremity veins. No evidence of deep venous thrombosis. Lower Extremity CT 10/21/23 08:44 IMPRESSION: 1. Subcutaneous packing material in the lower leg with trace fluid adjacent to th
[2023-10-25 13:58] VITALS: BP 143/90; PULSE 90; RESP 20; TEMP 35.6; O2SAT 96
--- NOTE | 2023-10-25 14:57 | PM.IMPN ---
Progress Note: A&P Assessment and Plan (1) Cellulitis of right leg: Code(s): L03.115 - Cellulitis of right lower limb Status: Acute (2) Sepsis: Code(s): A41.9 - Sepsis, unspecified organism Status: Acute Plan Cellulitis of right lower extremity , complex right calf abscess. Secondary to insect bite Has been on vancomycin, clindamycin the Unasyn IV since admission pt had worse leg swelling, skin is tight continue vancomycin clindamycin and changed to Zosyn 10/17 CT scan of right leg does not show necrotizing fasciitis Consult general surgeon for evaluation treatment. Appreciate general surgeon consultation Performed I and D of right calf abscess on 10/17 pending wound culture; Scant growth of Group A Streptococcus isolated dc clindamycin per ID pharmacist recommendation 10/18 continue vancomycin and Zosyn This has been switched to ceftriaxone. Leukocytosis still persistent. Will continue to monitor area of erythema. Added coverage for MRSA due to persistent leukocytosis as could be polymicrobial. WBC slowly improving. Erythema resolved. Switched antibiotics to linezolid to cover group a Streptococcus as well as MRSA. WBC count continues to improve on this regimen. Will recheck in a.m. if continues to improve tentative plan to continue linezolid at discharge. Sepsis Patient has leukocytosis 17,500, tachycardia tachypnea, meeting criteria for sepsis On admission treated with fluid resuscitation. This is resolved now Follow-up blood culture : No growth so far wound cultures: see above afeb o/n Subjective Date/time seen: 10/25/23 14:57 Interval history: no overnight events. No new complaints remains afebrile. Discussed with General surgery. Review of Systems Review of Systems: All systems reviewed & are unremarkable except as noted in HPI and below Exam Narrative: GENERAL: Pleasant, in no acute distress. Well-nourished. - EYES: EOMI. Anicteric. - HENT: Moist mucous membranes. - LUNGS: Clear to auscultation bilaterally, no wheezing, rhonchi, or rales. - CARDIOVASCULAR: Regular rate and rhythm. No murmur. No JVD. - ABDOMEN: Soft, non-tender and non-distended. No palpable masses. - EXTREMITIES: - ve edema. Peripheral pulses 2+. Non-tender. - NEUROLOGIC: No focal neurological deficits. CN II-XII grossly intact. - PSYCHIATRIC: Awake, Alert and oriented x 3. Appropriate mood and affect. - SKIN: redness that goes all the way to hip has resolved now; swelling of right lower extremity over the calf with dresssing in place Objective Data Vital Signs Vital Signs: Vital Signs - 24 hr 10/24/23 20:35 10/24/23 21:32 10/25/23 05:22 Temperature 97.0 F L 97.0 F L Pulse Rate 91 97 Respiratory Rate 14 16 Blood Pressure 148/93 H 131/98 H Pulse Oximetry 99 98 Oxygen Delivery Room Air 10/25/23 08:00 10/25/23 13:58 Temperature 96.1 F L Pulse Rate 90 Respiratory Rate 20 Blood Pressure 143/90 H Pulse Oximetry 98 96 Oxygen Delivery Room Air Intake/Output Intake/Output: Intake & Output 10/22/23 10/23/23 10/24/23 10/25/23 23:59 23:59 23:59 23:59 Intake Total 2190 1841.7 1082 440 Output Total 2250 1000 2200 400 Balance -60 841.7 -1118 40 Meds/Results Medications: Active Medications Generic Name Dose Route Start Last Admin Trade Name Freq PRN Reason Stop Dose Admin Acetaminophen 650 mg 10/16/23 07:03 10/21/23 04:07 Acetaminophen 325 Mg Tablet PO 650 mg Q4H PRN Administration Mild Pain (1-3) or Fever Enoxaparin Sodium 40 mg 10/16/23 09:00 10/25/23 09:30 Enoxaparin 40 Mg/0.4 Ml Syringe SUB-Q 40 mg DAILY JAUN Administration Hydromorphone HCl 1 mg 10/17/23 03:28 10/19/23 13:42 Hydromorphone Hcl Inj (*Crx) 1 Mg/Ml Syr IV PUSH 1 mg Q3H PRN Administration If pain unrelieved by Percocet Linezolid 600 mg 10/24/23 21:00 10/25/23 09:30 Linezolid 600 Mg Tablet PO 10/31/23 09:01 600 mg Q12HR JAUN A
--- NOTE | 2023-10-25 16:14 | PM.PNGS ---
Progress Note: A&P Assessment and Plan (1) Abscess of right leg: Code(s): L02.415 - Cutaneous abscess of right lower limb Status: Acute Assessment and Plan: Adequately drained status post complex I&D posterior right calf. Minna drains in place x 2. Will plan to keep these in place on discharge and have him follow-up with Dr. Whitaker eventually as an outpatient to remove the drains. Will need another 10 days or oral antibiotics on discharge. WBC count trending down to 13,000. He was transitioned to oral Linezolid yesterday. Will repeat labs tomorrow and if he continues to improve, then he can be discharged from a surgical standpoint. (2) Cellulitis of right leg: Code(s): L03.115 - Cellulitis of right lower limb Status: Acute Assessment and Plan: Continues to improve. WBC trending down. Continue antibiotics. Plan I have discussed the patient's case and plan of care with Dr. Whitaker. Subjective Subjective Date/Time Seen: 10/25/23 12:14 Patient reports: no new complaints, feels better and afebrile Interval history: NO acute issues. His swelling and pain in his right leg continues to improve daily. WBC trending down to 13,000 today. He also has a retired tube coremaker friend who is going to help him with daily dressing changes. Exam Extrem: Other: Right leg dressing removed and right lower extremity wounds with Minna drains in place x2. Drainage is serous. Redness nearly completely resolved in the posterior calf and right lateral thigh, swelling continues to improve. No purulent drainage or necrotic tissue in wounds. Objective Data Vital Signs Vital Signs: Vital Signs - 24 hr 10/24/23 20:35 10/24/23 21:32 10/25/23 05:22 Temperature 97.0 F L 97.0 F L Pulse Rate 91 97 Respiratory Rate 14 16 Blood Pressure 148/93 H 131/98 H Pulse Oximetry 99 98 Oxygen Delivery Room Air 10/25/23 08:00 10/25/23 13:58 Temperature 96.1 F L Pulse Rate 90 Respiratory Rate 20 Blood Pressure 143/90 H Pulse Oximetry 98 96 Oxygen Delivery Room Air Intake/Output Intake/Output: Intake & Output 10/22/23 10/23/23 10/24/23 10/25/23 23:59 23:59 23:59 23:59 Intake Total 2190 1841.7 1082 440 Output Total 2250 1000 2200 700 Balance -60 841.7 -1118 -260 Meds/Results Medications: Active Medications Generic Name Dose Route Start Last Admin Trade Name Freq PRN Reason Stop Dose Admin Acetaminophen 650 mg 10/16/23 07:03 10/21/23 04:07 Acetaminophen 325 Mg Tablet PO 650 mg Q4H PRN Administration Mild Pain (1-3) or Fever Enoxaparin Sodium 40 mg 10/16/23 09:00 10/25/23 09:30 Enoxaparin 40 Mg/0.4 Ml Syringe SUB-Q 40 mg DAILY JAUN Administration Hydromorphone HCl 1 mg 10/17/23 03:28 10/19/23 13:42 Hydromorphone Hcl Inj (*Crx) 1 Mg/Ml Syr IV PUSH 1 mg Q3H PRN Administration If pain unrelieved by Percocet Linezolid 600 mg 10/24/23 21:00 10/25/23 09:30 Linezolid 600 Mg Tablet PO 10/31/23 09:01 600 mg Q12HR JAUN Administration Ondansetron HCl 4 mg 10/16/23 07:03 10/21/23 19:15 Ondansetron Inj 4 Mg/2 Ml Vial IV PUSH 4 mg Q4H PRN Administration Nausea Oxycodone/Acetaminophen 1 tablet 10/16/23 08:19 10/20/23 20:16 Oxycodone/Acetaminophen (*Crx) 5-325 Mg Tablet PO 1 tablet Q4H PRN Administration Pain Rated 7-10 Radiology Results: ITS Impressions Tibia/Fibula X-Ray 10/16/23 06:22 IMPRESSION: 1. No acute osseous abnormality. Venous Doppler Study 10/20/23 17:09 IMPRESSION: Patent right lower extremity veins. No evidence of deep venous thrombosis. Lower Extremity CT 10/21/23 08:44 IMPRESSION: 1. Subcutaneous packing material in the lower leg with trace fluid adjacent to the packing material. Labs Labs: Laboratory Results - last 24 hr 10/25/23 06:21 WBC 13.7 H RBC 5.17 Hgb 14.9 Hct 46.5 MCV 89.9 MCH 28.8 MCHC 32.0 RDW 13.0 Plt Count 427 H MPV 9.0 I
[2023-10-25 22:00] VITALS: BP 142/85; PULSE 85; RESP 20; TEMP 36.4; O2SAT 98
[2023-10-26 06:00] VITALS: BP 132/92; PULSE 92; RESP 18; TEMP 37.1; O2SAT 96
[2023-10-26] MEDS: ENOXAPARIN 40 MG/0.4 ML SYRINGE SUB-Q (09:04)
[2023-10-26] MEDS: LINEZOLID 600 MG TABLET PO (09:04)
[2023-10-26 09:39] LABS: Hematocrit 44.9 % (42.0-52.0); Hemoglobin 15.1 g/dL (14.0-18.0); Mean Corpuscular HGB Conc 33.6 g/dl (32-36); Mean Corpuscular Hemoglobin 29.3 pg (26-34); Mean Corpuscular Volume 87.2 fl (80-100); Mean Platelet Volume 9.1 fl (7.4-10.4); Platelet Count Result 405 k/mm3 (150-375); Red Blood Count 5.15 M/mm3 (4.6-6.20); Red Cell Distribution Width 13.2 % (11.5-14.5)
--- NOTE | 2023-10-26 10:45 | PM.PNGS ---
Progress Note: A&P Assessment and Plan (1) Abscess of right leg: Code(s): L02.415 - Cutaneous abscess of right lower limb Status: Acute Assessment and Plan: Adequately drained status post complex I&D posterior right calf. Minna drains in place x 2. White blood cell count continues to slowly trend down to 13,000 from 13,700 yesterday. Okay from a surgical standpoint to discharge the patient home with another 10 days of oral antibiotics. He will be discharged with the Bowie drains and we will schedule him for a follow-up appointment with Dr. Whitaker to have them removed. Nursing will educate him again today on dressing changes and he plans on having a friend, who is a retired bark scaler, help him with dressing changes daily. (2) Cellulitis of right leg: Code(s): L03.115 - Cellulitis of right lower limb Status: Acute Assessment and Plan: Continues to improve with oral antibiotics. See plan above. Plan I have discussed the patient's case and plan of care with Dr. Whitaker. Subjective Subjective Date/Time Seen: 10/26/23 10:45 Patient reports: no new complaints, feels better and afebrile Interval history: Patient doing well today. No acute issues overnight. Denies any pain in his right lower extremity. No other complaints at this time. Exam Extrem: Other: Right leg dressing removed and right lower extremity wounds with Bowie drains in place x2. Drainage is serous. Redness nearly completely resolved in the posterior calf and right lateral thigh, swelling continues to improve. No purulent drainage or necrotic tissue in wounds. Objective Data Vital Signs Vital Signs: Vital Signs - 24 hr 10/25/23 13:58 10/25/23 20:20 10/25/23 22:00 Temperature 96.1 F L 97.6 F Pulse Rate 90 85 Respiratory Rate 20 20 Blood Pressure 143/90 H 142/85 H Pulse Oximetry 96 98 Oxygen Delivery Room Air 10/26/23 06:00 10/26/23 08:00 Temperature 98.7 F Pulse Rate 92 Respiratory Rate 18 Blood Pressure 132/92 H Pulse Oximetry 96 Oxygen Delivery Room Air Intake/Output Intake/Output: Intake & Output 10/23/23 10/24/23 10/25/23 10/26/23 23:59 23:59 23:59 23:59 Intake Total 1841.7 1082 440 400 Output Total 1000 2200 1000 400 Balance 841.7 -1118 -560 0 Meds/Results Medications: Active Medications Generic Name Dose Route Start Last Admin Trade Name Jeanne PRN Reason Stop Dose Admin Acetaminophen 650 mg 10/16/23 07:03 10/21/23 04:07 Acetaminophen 325 Mg Tablet PO 650 mg Q4H PRN Administration Mild Pain (1-3) or Fever Enoxaparin Sodium 40 mg 10/16/23 09:00 10/26/23 09:04 Enoxaparin 40 Mg/0.4 Ml Syringe SUB-Q 40 mg DAILY JAUN Administration Hydromorphone HCl 1 mg 10/17/23 03:28 10/19/23 13:42 Hydromorphone Hcl Inj (*Crx) 1 Mg/Ml Syr IV PUSH 1 mg Q3H PRN Administration If pain unrelieved by Percocet Linezolid 600 mg 10/24/23 21:00 10/26/23 09:04 Linezolid 600 Mg Tablet PO 10/31/23 09:01 600 mg Q12HR JAUN Administration Miscellaneous Information 0 each 10/26/23 00:01 10/26/23 05:07 Dilaudid Renew If Still Needs Or Will Auto D/C XX 11/25/23 00:00 Not Given CLARIFY JAUN Ondansetron HCl 4 mg 10/16/23 07:03 10/21/23 19:15 Ondansetron Inj 4 Mg/2 Ml Vial IV PUSH 4 mg Q4H PRN Administration Nausea Oxycodone/Acetaminophen 1 tablet 10/16/23 08:19 10/20/23 20:16 Oxycodone/Acetaminophen (*Crx) 5-325 Mg Tablet PO 1 tablet Q4H PRN Administration Pain Rated 7-10 Radiology Results: ITS Impressions Tibia/Fibula X-Ray 10/16/23 06:22 IMPRESSION: 1. No acute osseous abnormality. Venous Doppler Study 10/20/23 17:09 IMPRESSION: Patent right lower extremity veins. No evidence of deep venous thrombosis. Lower Extremity CT 10/21/23 08:44 IMPRESSION: 1. Subcutaneous packing material in the lower leg with trace fluid adjacent to the packing material. Labs Labs: La
--- NOTE | 2023-10-26 13:49 | PM.DS ---
DS: Admitting Diagnosis Discharge Date 10/26/2023 Admitting Diagnosis Redness, swelling, tender and pus drainage of right lower extremity DS: Discharge Diagnosis Discharge Diagnosis (1) Cellulitis of right leg: Code(s): L03.115 - Cellulitis of right lower limb Status: Acute Assessment and Plan: Cellulitis of right lower extremity , complex right calf abscess. Secondary to insect bite Has been on vancomycin, clindamycin the Unasyn IV since admission pt had worse leg swelling, skin is tight continue vancomycin clindamycin and changed to Zosyn 10/17 CT scan of right leg does not show necrotizing fasciitis Consult general surgeon for evaluation treatment. Appreciate general surgeon consultation Performed I and D of right calf abscess on 10/17 pending wound culture; Scant growth of Group A Streptococcus isolated dc clindamycin per ID pharmacist recommendation 10/18 continue vancomycin and Zosyn This has been switched to ceftriaxone. Leukocytosis still persistent. Will continue to monitor area of erythema. Added coverage for MRSA due to persistent leukocytosis as could be polymicrobial. WBC slowly improving. Erythema resolved. Switched antibiotics to linezolid to cover group a Streptococcus as well as MRSA. wcc better ok to dc on linezolid at discharge. (2) Sepsis: Code(s): A41.9 - Sepsis, unspecified organism Status: Acute Assessment and Plan: Sepsis Patient has leukocytosis 17,500, tachycardia tachypnea, meeting criteria for sepsis On admission treated with fluid resuscitation. This is resolved now Follow-up blood culture : No growth so far wound care to continue at home Plan DS: Summary Hospital Course Hospital Course: 42 years trending present ED with a chief complaint of redness, swelling, pain and pus drainage from right lower extremity. Patient got a insect bite on the right calf of right leg few days ago, and developed some redness, swelling and pain yesterday patient noticed some pus drainage from the area. Patient denies headache, photophobia, nausea vomiting diarrhea, dysuria. Patient has chills subjective fever. Upon arrival in ED, patient has tachycardia tachypnea, leukocytosis 17,500, x-ray does not show gas or acute bone abnormality. Patient received Unasyn and clindamycin in the ED. Cellulitis of right lower extremity , complex right calf abscess. Secondary to insect bite Has been on vancomycin, clindamycin the Unasyn IV since admission pt had worse leg swelling, skin is tight continue vancomycin clindamycin and changed to Zosyn 10/17 CT scan of right leg does not show necrotizing fasciitis Consult general surgeon for evaluation treatment. Appreciate general surgeon consultation Performed I and D of right calf abscess on 10/17 pending wound culture; Scant growth of Group A Streptococcus isolated dc clindamycin per ID pharmacist recommendation 10/18 continue vancomycin and Zosyn This has been switched to ceftriaxone. Leukocytosis still persistent. Will continue to monitor area of erythema. Added coverage for MRSA due to persistent leukocytosis as could be polymicrobial. WBC slowly improving. Erythema resolved. Switched antibiotics to linezolid to cover group a Streptococcus as well as MRSA. wcc better ok to dc on linezolid at discharge. Time Spent with Patient Time attestation: Total time spent providing and/or coordinating discharge services:45 minutes Exam Narrative: GENERAL: Pleasant, in no acute distress. Well-nourished. - EYES: EOMI. Anicteric. - HENT: Moist mucous membranes. - LUNGS: Clear to auscultation bilaterally, no wheezing, rhonchi, or rales. - CARDIOVASCULAR: Regular rate and rhythm. No murmur. No JVD. - ABDOMEN: Soft, non-tender and non-distended. No palpable masses. - EXTREMITIES: - ve edema. Peripheral pulses 2+. Non-tender. - NEUROLOGIC: No focal neurological deficits. CN II-XII grossly intact. - PSYCHIATRIC: Awake, Aler
[2023-10-26 14:00] VITALS: BP 136/92; PULSE 107; RESP 18; TEMP 35.8; O2SAT 97
== END 2023-10-26 15:35 | disposition home or self-care (01) | DRG 720 ==
LOC: ANHED 07:05 → ANH3MEDSUR 08:38
PROVIDERS: Internal Medicine; Nurse Practitioner Family; Surgery; Admitting Provider Hospitalist; Emergency Provider Emergency Medicine; Visit Provider Family Medicine
PROC: 0J9N0ZX Drainage of Right Lower Leg Subcutaneous Tissue and Fascia, Open Approach, Diagnostic (ICD-10-PCS; principal; 2023-10-18 18:30)
DX: A41.9 Sepsis, unspecified organism (principal); L02.415 Cutaneous abscess of right lower limb; B95.0 Streptococcus, group A, as the cause of diseases classified elsewhere; L03.115 Cellulitis of right lower limb; S80.861A Insect bite (nonvenomous), right lower leg, initial encounter; F17.210 Nicotine dependence, cigarettes, uncomplicated; E66.9 Obesity, unspecified; Z68.34 Body mass index [BMI] 34.0-34.9, adult
CPT/HCPCS: 36415; 36569; 73590; 73700; 73701; 80048; 80053; 80202; 81001; 82565; 83036; 83605; 83735; 84145; 85025; 85027; 85055; 87040; 87070; 87075; 87077; 87205; 93005; 93971; 96361; 96365; 96366; 96367; 96375; 96376; 99285; A9270; C1751; G0378; G0379; J0295; J0330; J0696; J1170; J1200; J1650; J1885; J2405; J2543; J2704; J3010; J3370; J7030; J7120; Q9967

== ENCOUNTER 2024-05-13 05:09 | Inpatient (IN) | payer OTHER, SELFPAY ==
[2024-05-13] VITALS (22 sets, daily range): BP systolic 104–158; BP diastolic 79–117; PULSE 82–114; RESP 15–23; TEMP 36.3–37.3; O2SAT 92–98; BMI 32.3
--- NOTE | 2024-05-13 05:19 | ECG_ITS ---
Test Date: 2024-05-13 05:14:14 Measurements Intervals [place] Rate: 104 P: 58 [place]: 144 QRS: 39 QRSD: 110 T: 62 QT: 366 QTc: 483 Interpretive Statements SINUS TACHYCARDIA INDETERMINATE AXIS INCOMPLETE RIGHT BUNDLE BRANCH BLOCK [90+ ms QRS DURATION, TERMINAL R IN V1/V2, 40+ ms S IN I/aVL/V4/V5/V6] ABNORMAL RHYTHM ECG Compared to ECG 10/19/2023 18:11:26 no change Electronically Signed On 05-13-2024 10:07:10 [employer] by Darrel Dyer M.D.
[2024-05-13 05:28] LABS: Basophils Absolute Auto 0.1 K/mm3 (0.0-0.1); Basophils Percent Auto 0.8 % (0.2-1.2); Eosinophils Absolute Auto 0.3 K/mm3 (0-0.3); Eosinophils Percent Auto 2.5 % (0-4.4); Hematocrit 48.8 % (42.0-52.0); Hemoglobin 16.5 g/dL (14.0-18.0); Immature Granulocyte Absolute 0.03 K/mm3 (0.00-0.031); Immature Granulocyte Percent A 0.3 % (0-0.5); Lymphocytes Absolute Auto 2.47 K/mm3 (0.9-3.2); Lymphocytes Percent Auto 25.1 % (18.3-44.2); Mean Corpuscular HGB Conc 33.8 g/dl (32-36); Mean Corpuscular Hemoglobin 29.1 pg (26-34); Mean Corpuscular Volume 86.1 fl (80-100); Mean Platelet Volume 8.8 fl (7.4-10.4); Monocytes Absolute Auto 0.6 K/mm3 (0.1-0.6); Monocytes Percent Auto 6.1 % (2.6-8.5); Neutrophils Absolute Auto 6.4 K/mm3 (1.3-6.7); Neutrophils Percent Auto 65.2 % (45.5-73.1); Platelet Count Result 293 k/mm3 (150-375); Red Blood Count 5.67 M/mm3 (4.6-6.20); Red Cell Distribution Width 13.3 % (11.5-14.5); White Blood Count 9.8 K/mm3 (4.5-10.0)
[2024-05-13] MEDS: HEPARIN SODIUM 5,000 UNITS/ML VIAL 4000 UNITS IV PUSH (05:30)
--- NOTE | 2024-05-13 05:33 | ED_ITS ---
HPI - General Adult General Chief complaint: Chest Pain Stated complaint: CODE STEMI History of Present Illness HPI narrative: this is a 43-year-old male presenting as a code STEMI. Patient got into an argument with his girlfriend developed severe chest pain radiating to his left arm. When EMS arrived he was clear STEMI on the EKG. He was given aspirin and nitro EN route. At this time the patient says his pain is improved will 1. He denies any drug use like cocaine or amphetamines. Related Data Allergies Allergy/AdvReac Type Severity Reaction Status Date / Time No Known Allergies Allergy Verified 11/16/23 13:40 [facility] Past Medical History Medical History Healthy adult Surgical History Surgical History History of incision and drainage post complex I&D posterior right calf 10/17/23 History of inguinal hernia repair x2 Family History Family History (Updated 05/13/24 @ 12:30 by Elizabeth Hightower RN) Father Cerebrovascular accident Acute myocardial infarction Social History Social History Smoking packs per day: 1 Smoking cigarettes per day: 20.0 Years smoked: 28 Smoking pack-years: 28.00 Smoking status: Current every day smoker Alcohol intake: never Substance use: unknown Substance use type: methamphetamine Last use: 05/11/24 Do You Feel Safe in your Home?: Yes Lack of Transportation: YES Lack of Food: Sometimes True Current Housing: I Have Housing Concerned About Future Housing: YES Difficulty Paying Gas/Electric Bills: YES Difficulty Paying for Meds: No Currently Unemployed: YES Education: High School Diploma/GED Difficulty w/ Childcare or Family Care: No Gender identity (if verbalized by the patient): Male Spiritual care concerns: No Exam 2 Narrative: APPEARANCE: No apparent distress. Head: atraumatic. EYES: EOMI, NOSE: Atraumatic NECK: Trachea midline RESPIRATORY: No increased rate of breathing CTAB CARDIOVASCULAR: RRR, no peripheral edema ABDOMINAL: Non-distended soft nontender MUSCULOSKELETAl: No obvious deformities NEURO: Alert. Moving 4/4 extremities SKIN:: Warm, dry. Normal color PSYCHIATRIC: Normal affect Course Vital Signs Vital signs: Vital Signs Temperature 99.2 F 05/13/24 05:09 Pulse Rate 104 H 05/13/24 05:09 Respiratory Rate 15 05/13/24 05:09 Blood Pressure 158/106 H 05/13/24 05:09 Pulse Oximetry 98 05/13/24 05:09 Oxygen Delivery Room Air 05/13/24 05:09 Temperature 98.3 F 05/15/24 08:00 Pulse Rate 97 05/15/24 10:00 Respiratory Rate 19 05/15/24 08:00 Blood Pressure 118/77 05/15/24 08:00 Pulse Oximetry 94 05/15/24 08:00 Oxygen Delivery Room Air 05/15/24 08:00 Medical Decision Making MDM Narrative Medical decision making narrative: -Course: -DDX includes but is not limited to: -Co-morbidities complicating care: -Social determinants of health: -External Chart Review: -Hx from independent Sources: -Independent interpretation of studies: -Discussion of Management/Consultants: -Dx tests considered but not ordered: -Procedures: -Interventions: -Shared decision making / Disposition: -RX Vital Signs Vital Signs: Vital Signs Temperature 99.2 F 05/13/24 05:09 Pulse Rate 104 H 05/13/24 05:09 Respiratory Rate 15 05/13/24 05:09 Blood Pressure 158/106 H 05/13/24 05:09 Pulse Oximetry 98 05/13/24 05:09 Oxygen Delivery Room Air 05/13/24 05:09 Temperature 98.3 F 05/15/24 08:00 Pulse Rate 97 05/15/24 10:00 Respiratory Rate 19 05/15/24 08:00 Blood Pressure 118/77 05/15/24 08:00 Pulse Oximetry 94 05/15/24 08:00 Oxygen Delivery Room Air 05/15/24 08:00 Lab Data 05/14/24 05:12 05/14/24 05:12 Labs: Lab Results 05/13/24 05/13/24 05/13/24 Range/Units 05:21 05:21 05:21 WBC 9.8 (4.5-10.0) K/mm3 RBC 5.67 (4.6-6.20) M/mm3 Hgb 16.5 (14.0-18.0) g/dL Hct 48.8 (42.0-52.0) % MCV 86.1 (80-100) fl MCH 29.1 (26-34) pg MCHC 33.8 (32-36) g/dl RDW 13.3 (11.5-14.5) % Plt Count 293 (150-375) k/mm3 MPV 8.8 (7.4-10.4) fl Immature Gran % (Auto) 0.3 (0-0.5) % Neut % (Auto) 65.2 (45.5-73.1) % Lymph % (Auto) 25.1 (18.3-44.2) % [place] % (Auto) 6.1 (2.6-8.5) % Eos % (Auto) 2.5 (0-4.4) % Baso % (Auto) 0.8 (0.2-1.2) % Lymph # (Auto) 2.47 (0.9-3.2) K/mm3 [place] # (Auto) 0.6 (0.1-0.6) K/mm3 Eos # (Auto) 0.3 (0-0.3) K/mm3 Baso # (Auto) 0.1 (0.0-0.1) K/mm3 Abs Immat Gran (auto) 0.03 (0.00-0.031) K/mm3 Absolute Neuts (auto) 6.4 (1.3-6.7) K/mm3 Absolute Nucleated RBC 0.000 (0.0-0.012) K/mm3 Nucleated RBC % 0.0 (0.0-0.2) % PT 12.4 (11.1-14.7) Seconds INR 0.9 APTT 26.9 (22.3-36.8) Seconds Sodium 138 (137-145) mmol/L Potassium 3.9 (3.4-5.0) mmol/L Chloride 102 (98-107) mmol/L Carbon Dioxide 28 (22-30) mmol/L Anion Gap 8 (4-12) mmol/L BUN 15 (9-20) mg/dL Creatinine 1.04 (0.7-1.3) mg/dL Estim Creat Clear Calc 100 ml/min Estimated GFR > 60 (59 - ) Glucose 131 H (65-110) mg/dL Hemoglobin A1c 6.2 H (<5.7) % Calcium 9.1 (8.4-10.2) mg/dL Total Bilirubin 0.4 (0.2-1.3) mg/dL AST 31 (17-59) U/L ALT 43 (6-50) U/L Alkaline Phosphatase 127 H (38-126) U/L Troponin I 0.034 (0.000-0.034) ng/mL Total Protein 8.0 (6.3-8.2) g/dL Albumin 4.2 (3.5-5.1) g/dL Triglycerides 196 H 193 H (<150) mg/dL Cholesterol 265 H 261 H (0-200) mg/dL LDL Cholesterol Direct 164 mg/dL HDL Direct mg/dL Blood Type Antibody Screen 05/13/24 05/13/24 Range/Units 05:21 05:21 WBC (4.5-10.0) K/mm3 RBC (4.6-6.20) M/mm3 Hgb (14.0-18.0) g/dL Hct (42.0-52.0) % MCV (80-100) fl MCH (26-34) pg MCHC (32-36) g/dl RDW (11.5-14.5) % Plt Count (150-375) k/mm3 MPV (7.4-10.4) fl Immature Gran % (Auto) (0-0.5) % Neut % (Auto) (45.5-73.1) % Lymph % (Auto) (18.3-44.2) % [place] % (Auto) (2.6-8.5) % Eos % (Auto) (0-4.4) % Baso % (Auto) (0.2-1.2) % Lymph # (Auto) (0.9-3.2) K/mm3 [place] # (Auto) (0.1-0.6) K/mm3 Eos # (Auto) (0-0.3) K/mm3 Baso # (Auto) (0.0-0.1) K/mm3 Abs Immat Gran (auto) (0.00-0.031) K/mm3 Absolute Neuts (auto) (1.3-6.7) K/mm3 Absolute Nucleated RBC (0.0-0.012) K/mm3 Nucleated RBC % (0.0-0.2) % PT (11.1-14.7) Seconds INR APTT (22.3-36.8) Seconds Sodium (137-145) mmol/L Potassium (3.4-5.0) mmol/L Chloride (98-107) mmol/L Carbon Dioxide (22-30) mmol/L Anion Gap (4-12) mmol/L BUN (9-20) mg/dL Creatinine (0.7-1.3) mg/dL Estim Creat Clear Calc ml/min Estimated GFR (59 - ) Glucose (65-110) mg/dL Hemoglobin A1c (<5.7) % Calcium (8.4-10.2) mg/dL Total Bilirubin (0.2-1.3) mg/dL AST (17-59) U/L ALT (6-50) U/L Alkaline Phosphatase (38-126) U/L Troponin I (0.000-0.034) ng/mL Total Protein (6.3-8.2) g/dL Albumin (3.5-5.1) g/dL Triglycerides (<150) mg/dL Cholesterol (0-200) mg/dL LDL Cholesterol Direct 175 mg/dL HDL Direct 43 42 mg/dL Blood Type A Positive Antibody Screen Negative Discharge Plan Discharge Clinical Impression: ST elevation (STEMI) myocardial infarction Patient Disposition: Still a Patient Condition: Stable
[2024-05-13 05:39] LABS: INR 0.9; Prothrombin Time 12.4 Seconds (11.1-14.7)
[2024-05-13 05:40] LABS: Partial Thromboplastin Time 26.9 Seconds (22.3-36.8)
[2024-05-13 05:46] LABS: Alanine Aminotransferase 43 U/L (6-50); Albumin Level 4.2 g/dL (3.5-5.1); Alkaline Phosphatase 127 U/L (38-126); Anion Gap 8 mmol/L (4-12); Aspartate Amino Transferase 31 U/L (17-59); Bilirubin,Total 0.4 mg/dL (0.2-1.3); Blood Urea Nitrogen 15 mg/dL (9-20); Calcium 9.1 mg/dL (8.4-10.2); Carbon Dioxide 28 mmol/L (22-30); Chloride 102 mmol/L (98-107); Cholesterol 265 mg/dL (0-200); Estimated CRCL calculation 100 ml/min; Estimated Glomerular Filt Rate > 60; Glucose 131 mg/dL (65-110); HDL Direct 43 mg/dL; Potassium 3.9 mmol/L (3.4-5.0); Sodium 138 mmol/L (137-145); Triglycerides 196 mg/dL (<150)
[2024-05-13 05:57] LABS: LDL Cholesterol Direct 164 mg/dL
[2024-05-13 06:00] LABS: Troponin I 0.034 ng/mL (0.000-0.034)
--- NOTE | 2024-05-13 06:49 | PM.IMHP ---
H&P: HPI History of Present Illness Date/Time: 05/13/24 06:49 Chief Complaint: Chest pain that started about 90 minutes before arrival to the hospital Narrative: 43-year-old male with no known prior cardiac history; ongoing tobacco and methamphetamine abuse. Patient presented to [facility] Emergency Room via EMS with complaints of chest pain. Patient states that he had an argument with his girlfriend and started having chest pain associated with shortness of breath and dizziness without syncope. EMS EKG on my personal interpretation showed sinus tachycardia, ST elevation in leads V2 -V4. Patient was given SL nitroglycerin with improvement in chest pain. In the emergency room, his EKG showed significant improvement in the ST elevation. Cardiac catheterization lab was activated for primary PCI. Patient denies prior cardiac history. He smokes cigarettes, and methamphetamine on a regular basis. Review of Systems Review of Systems: General: Negative for fever, chills, fatigue Psychological: Positive for anxiety Ophthalmic: negative for loss of vision ENT: Negative for epistaxis, headaches Allergy and immunology: Negative for hives, nasal congestion Hematologic and lymphatic: Negative for overt bleeding problems Endocrine: Negative for hot flashes, palpitations Respiratory: Negative for cough, hemoptysis Cardiovascular: positive for chest pain, shortness of breath, dizziness without syncope Gastrointestinal: Negative for abdominal pain, nausea, vomiting, hematochezia Musculoskeletal: Negative for myalgia, joint pains Neurological: Negative for weakness Dermatological: Negative for rash, skin discoloration PMFSH Past Medical History Medical History Healthy adult Surgical History Surgical History History of incision and drainage post complex I&D posterior right calf 10/17/23 History of inguinal hernia repair x2 Social History Social History Smoking packs per day: 1 Smoking cigarettes per day: 20.0 Smoking status: Current every day smoker Alcohol intake: never Substance use: unknown Do You Feel Safe in your Home?: Yes Lack of Transportation: No Lack of Food: Sometimes True Current Housing: I Have Housing Concerned About Future Housing: Decline to Answer Difficulty Paying Gas/Electric Bills: Decline to Answer Difficulty Paying for Meds: Decline to Answer Currently Unemployed: Decline to Answer Education: High School Diploma/GED Difficulty w/ Childcare or Family Care: No Gender identity (if verbalized by the patient): Male Spiritual care concerns: Yes Meds Home Medications and Allergies Home Medications ?Medication ?Instructions ?Recorded ?Confirmed ?Type linezolid 600 mg tablet 600 mg PO Q12HR #14 tabs 10/26/23 11/16/23 Rx Allergies Allergy/AdvReac Type Severity Reaction Status Date / Time No Known Allergies Allergy Verified 11/16/23 13:40 Vital Signs Vital Signs - 24 hr 05/13/24 05:09 05/13/24 05:15 05/13/24 05:15 Temperature 37.3 C Pulse Rate 104 H 107 H Respiratory Rate 15 Blood Pressure 158/106 H Pulse Oximetry 98 97 Oxygen Delivery Room Air Room Air Exam Narrative: PHYSICAL EXAMINATION: GENERAL: Alert, oriented, no acute distress MENTAL STATUS: anxious EYES: Extraocular movements intact, no pallor EARS: External ears appear normal, hearing grossly normal NOSE: Normal and patent, no discharge MOUTH: Mucous membranes moist, missing teeth NECK: Supple, no JVD CHEST: Good respiratory effort, clear to auscultation HEART: Normal rate, regular rhythm, normal S1 and S2, S4 gallop ABDOMEN: Soft, nontender NEUROLOGICAL: Alert, oriented, normal speech, no gross motor deficits MUSCULOSKELETAL: No major deformity, no amputation EXTREMITIES: No pedal edema, no clubbing, no cyanosis SKIN: no rash on the exposed area, no cyanosis PSYCHIATRIC: anxious, no agitation H&P: Results Labs Labs: Short CBC 05/13/24 Range/Units 05:21 WBC 9.8 (4.5-10.0) K/mm3 Hgb 16.5 (14.0-18.0) g/dL Hct 48.8 (42.0-52.0) % Plt Count 293 (150-375) k/mm3 BMP 05/13/24 05:21 Sodium 138 Potassium 3.9 Chloride 102 Carbon Dioxide 28 BUN 15 Creatinine 1.04 Glucose 131 H Calcium 9.1 Cardiac Enzymes 05/13/24 Range/Units 05:21 Troponin I 0.034 (0.000-0.034) ng/mL Liver Function 05/13/24 Range/Units 05:21 Total Bilirubin 0.4 (0.2-1.3) mg/dL AST 31 (17-59) U/L ALT 43 (6-50) U/L Alkaline Phosphatase 127 H (38-126) U/L Albumin 4.2 (3.5-5.1) g/dL Assessment and Plan Assessment and plan (1) ST elevation (STEMI) myocardial infarction involving left anterior descending coronary artery: Code(s): I21.02 - ST elevation (STEMI) myocardial infarction involving left anterior descending coronary artery Status: Acute Assessment and Plan: 43-year-old male with no known prior cardiac history; ongoing tobacco and methamphetamine abuse presented with chest pain that started about 90 minutes prior to arrival. EMS EKG showed anterior ST-elevation SC. Emergent coronary angiogram showed hazy, 80-90% stenosis proximal LAD (infarct related vessel); 50-60% stenosis mid LCX; LVEF about 50% with hypokinetic mid -distal anterior and apical segments. Patient underwent IVUS guided primary PCI / 4.5 x 15 mm [employer] [place] [place] zotarolimus stent placement in the proximal LAD. - admit to ICU - dual antiplatelet therapy with aspirin and ticagrelor for 1 year, then single antiplatelet treatment indefinitely as tolerated. 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 Initiate high-dose statin. - Labs including CMP, CBC, HbA1c, urine drug screen. Check serial troponins for prognostication. - Echo with Doppler and contrast. - consult perinatal social worker/ rn case management to assist with drug rehab - smoking and substance use cessation counseling was done. - ICU physician updated (2) Methamphetamine abuse: Code(s): F15.10 - Other stimulant abuse, uncomplicated Status: Acute
--- NOTE | 2024-05-13 07:01 | WPDCARDPROC ---
Cardiac Cath Procedure Note Date of procedure:: 05/13/24 Performing physician:: Gene Yañez MD Procedure Procedure performed:: EMERGENT CARDIAC CATHETERIZATION AND PERCUTANEOUS CORONARY INTERVENTION REPORT DATE OF PROCEDURE: 05/13/2024 INDICATION FOR PROCEDURE: ACUTE CORONARY SYNDROME-ANTERIOR ST-ELEVATION HI BRIEF CLINICAL HISTORY: 43-year-old male with no known prior cardiac history; ongoing tobacco and methamphetamine abuse. Patient presented to [facility] Emergency Room via EMS with complaints of chest pain. Patient states that he had an argument with his girlfriend and started having chest pain associated with shortness of breath and dizziness without syncope. EMS EKG on my personal interpretation showed sinus tachycardia, ST elevation in leads V2 -V4. Patient was given SL nitroglycerin with improvement in chest pain. In the emergency room, his EKG showed significant improvement in the ST elevation. Cardiac catheterization lab was activated for primary PCI. Prior to arrival to the medical laboratory scientist, patient was given aspirin and unfractionated heparin in the emergency room. PROCEDURES PERFORMED: 1. EMERGENT Left heart catheterization- Selective left and right coronary angiogram; left ventriculogram and hemodynamic assessment 2. PRIMARY Percutaneous coronary intervention- a) intravascular ultrasound -IVUS of LAD b) PCI- balloon angioplasty and stenting of proximal LAD using a 4.5 x 15 mm Medtronic lucía for anterior zotarolimus eluting stent (ZES) 3. Deployment of Mynx hemostatic device 4. Moderate sedation-CPT code 67792 and beyond MODERATE SEDATION: Midazolam 1 mg; fentanyl 25 mcg. Start time 0553 , Stop time 0637 ; Total [id number] time 44 minutes; Monika Yang RN was trained observer for moderate sedation. ACCESS SITE: Right common femoral artery PROCEDURE NOTE: patient was emergently brought to catheterization lab and prepped and draped in a usual sterile manner. After local anesthesia with lidocaine, right common femoral artery access was taken with micropuncture needle followed by insertion of a 6 Kyrgyz sheath. there was difficulty in engaging the RCA using JR4 catheter, RCA angiogram was performed using available 5 Kyr[place]z RCB catheter. Selective left coronary angiogram was performed using 6 Kyrgyz Q 4 guide catheter. After completion of PCI, 5 Kyr[place]z pigtail catheter was advanced into LV cavity , LVEDP was measured. Left ventriculogram was performed. The catheter was flushed again, and gradient across the aortic valve was measured on the pullback of the catheter. After completion of procedure, Mynx vascular closure device was deployed with good hemostasis. Patient tolerated procedure well without any immediate procedure related complications. FINDINGS: LEFT MAIN CORONARY: large caliber, short vessel, no focal stenosis. LEFT ANTERIOR DESCENDING ARTERY: Large caliber vessel in the proximal segment with hazy 80-90% stenosis- infarct related vessel. The vessel tapers distally and bifurcates at LV apex. Distal LAD near LV apex has about 70% narrowing. Major Diagonal branch is a medium caliber vessel without focal stenosis. LEFT CIRCUMFLEX ARTERY: large caliber vessel, gives rise to small caliber OM1 -OM3 branches; and large caliber OM 4 and OM 5 branch is. Minor irregularities are seen in the proximal LCX. There is about 50-60% stenosis in the LCX between OM branch is in the mid-distal segment. RIGHT CORONARY ARTERY: Medium caliber, tortuous vessel. There is about 30-40% stenosis in the distal segment. The vessel gives rise to small to medium caliber PDA and a PLV branches with [id number] diffuse plaque in the PDA branch. LEFT VENTRICULOGRAM: Borderline LV systolic function, EF about 50%; mid -distal anterior and apical segments are hypokinetic. LVEDP elevated at 29 mmHg. HEMODYNAMIC ASSESSMENT: Opening pressure 121/97 mmHg , closing pressure 152/101 mmHg , LVEDP 29 mmHg; no significant gradient across aortic valve on the pullback of pigtail catheter. INTERVENTION REPORT: patient had already received aspirin, was given loading dose of ticagrelor 180 mg in the medical laboratory scientist. Bivalirudin was used for% anticoagulation. Left main coronary artery ostium was selectively engaged using 6 Kyrgyz Q 4 guide catheter. The stenosis in the proximal LAD was crossed using 0.014 luge wire. Next, IVUS was performed which showed plaque in the proximal LAD, distal reference diameter 4.2 x 4.2 mm, proximal 4.8 x 5.0. After this, balloon angioplasty was performed using a 3.5 x 10 mm balloon. After this, 4.5 x 15 mm Medtronic lucía Haralson zes was deployed at nominal pressures. Post dilatation was initially performed using the stent balloon, followed by postdilation using a 4.5 x 12 mm noncompliant balloon. after this, IVUS was performed which showed good stent apposition. Final angiogram showed good angiographic results without angiographically visible dissection or distal embolization. Chest pain resolved post PCI. Mynx vascular closure device was deployed for local hemostasis. There were no immediate procedure complications. CONCLUSIONS: 1. CAD: a) About 80-90% hazy stenosis proximal LAD (infarct related vessel); b) about 50-60% stenosis mid -distal LCX; c) about 30-40% stenosis distal RCA 2. Borderline LV systolic function, LVEF about 50%; mid -distal anterior and apical segments hypokinetic; LVEDP elevated at 29 mmHg. 3. Primary PCI -IVUS, PTCA/stenting of proximal LAD using a 4.5 x 15 mm Medtronic lucía Haralson Zotarolimus eluting stent. PLAN/RECOMMENDATIONS: - admit to ICU - dual antiplatelet therapy with aspirin and ticagrelor for 1 year, then single antiplatelet treatment indefinitely as tolerated. High-dose statin. - Labs including CMP, CBC, lipid panel, HbA1c, urine drug screen. Check serial troponins for prognostication. - Echo with Doppler and contrast. - consult child welfare social worker/ complex case manager to assist with drug rehab - smoking and substance use cessation counseling was done. - ICU physician updated This document was completed by using M*Modal Fluency Direct speech recognition software, therefore, grating machine operator variances may occur.
[2024-05-13] MEDS: SODIUM CHLORIDE 0.9% IV 1,000 ML 125 ML IV CONT (07:48)
[2024-05-13 08:01] LABS: Cholesterol 261 mg/dL (0-200); HDL Direct 42 mg/dL; Triglycerides 193 mg/dL (<150)
[2024-05-13 08:11] LABS: LDL Cholesterol Direct 175 mg/dL
[2024-05-13 08:47] LABS: Ethanol < 10 mg/dL (<10)
[2024-05-13] MEDS: ATORVASTATIN 40 MG TABLET 80 MG PO (09:04)
[2024-05-13] MEDS: METOPROLOL TARTRATE 12.5 MG TABLET PO ×3 (09:04→21:36)
[2024-05-13 10:27] LABS: Hemoglobin A1C 6.2 % (<5.7)
--- NOTE | 2024-05-13 12:35 | P.CONIN_ITS ---
Assessment and Plan Assessment and plan (1) ST elevation (STEMI) myocardial infarction involving left anterior descending coronary artery: Code(s): I21.02 - ST elevation (STEMI) myocardial infarction involving left anterior descending coronary artery Status: Acute Assessment and Plan: 05/13/2024: Patient presented with chest pain, shortness of breath, and dizziness. EMS EKG showed ST elevation in V2 to V4. - Cardiology evaluated the patient and he was taken to the cardiac dentures lab technician he was found to have a 90% stenosis of the proximal LAD, status post PTCA/PCI with VIOLET x1 to proximal LAD. Patient also has 50-60% stenosis of mid distal left circumflex and 30-40% stenosis of distal RCA -continue aspirin, statin, Brilinta, metoprolol -cardiology following the patient -echocardiogram has been ordered (2) Tobacco abuse: Code(s): Z72.0 - Tobacco use Status: Acute Assessment and Plan: Counseled patient on tobacco cessation (3) Methamphetamine abuse: Code(s): F15.10 - Other stimulant abuse, uncomplicated Status: Acute Assessment and Plan: Counseled patient on methamphetamine use (4) Hyperlipidemia: Code(s): E78.5 - Hyperlipidemia, unspecified Status: Acute Assessment and Plan: Continue high-dose statin Plan DVT prophylaxis: Status post cardiac catheterization Stress ulcer prophylaxis: Not indicate Nutrition: Heart healthy diet Code Status: Full code Critical Care Time Spent: 47 minutes Due to a high probability of clinically significant, life threatening deterioration, the patient required my highest level of preparedness to intervene emergently and I personally spent this critical care time directly and personally managing the patient. This critical care time included obtaining a history; examining the patient; pulse oximetry; ordering and review of studies; arranging urgent treatment with development of a management plan; evaluation of patient's response to treatment; frequent reassessment; and discussions with other providers. It was exclusive of separately billable procedures and treating other patients and teaching time. Please see Assessment and Plan section and the rest of the note for further information on patient assessment and treatment This dictation may have been done utilizing a voice recognition system. Attempts have been made to correct errors. However, there may be uncorrected grammatical, spelling, and recognitions errors present. Dedicated Local Truck Driver Consult Note Consult date: 05/13/24 Reason for consult: STEMI status post VILOET x1 to proximal LAD, EF of 50%, LVEDP of 29 HPI: Edwin Ruano is a 43 year old male with no known past medical history except for tobacco and methamphetamine use presented the ED on 05/13/2024 via EMS with complains of chest pain. In the ER patient stated that he had an argument with his girlfriend started having chest pain which was associated with shortness of breath and dizziness. Denies any diaphoresis or syncope. No radiation. EKG done by the EMS showed ST elevation in leads V2 to V4. Cardiology evaluated the patient and he was taken to the cardiac dentures lab technician he was found to have a 90% stenosis of the proximal LAD, status post PTCA/PCI with VIOLET x1 to proximal LAD. Patient also has 50-60% stenosis of mid distal left circumflex and 30-40% stenosis of distal RCA. He was admitted to the ICU for further management Patient seen and examined the ICU upon arrival, is awake, alert, oriented, denies any chest pain, shortness of breath, abdominal pain, nausea vomiting. Hemodynamically stable, slightly tachycardic initially but after receiving his metoprolol his blood pressures and heart rate improved. He smokes 1 packet per day, uses methamphetamines occasionally according the patient and denies alcohol use. Review of Systems 2 Review of Systems: All systems reviewed & are unremarkable except as noted in HPI and below PMFSH Past Medical History Medical History Healthy adult Surgical History Surgical History History of incision and drainage post complex I&D posterior right calf 10/17/23 History of inguinal hernia repair x2 Family History Family History (Updated 05/13/24 @ 12:30 by Elizabeth Hightower RN) Father Cerebrovascular accident Acute myocardial infarction Social History Social History Smoking packs per day: 1 Smoking cigarettes per day: 20.0 Years smoked: 28 Smoking pack-years: 28.00 Smoking status: Current every day smoker Alcohol intake: never Substance use: unknown Substance use type: methamphetamine Last use: 05/11/24 Do You Feel Safe in your Home?: Yes Lack of Transportation: YES Lack of Food: Sometimes True Current Housing: I Have Housing Concerned About Future Housing: YES Difficulty Paying Gas/Electric Bills: YES Difficulty Paying for Meds: No Currently Unemployed: YES Education: High School Diploma/GED Difficulty w/ Childcare or Family Care: No Gender identity (if verbalized by the patient): Male Spiritual care concerns: No Meds Home Medications and Allergies Home Medications ?Medication ?Instructions ?Recorded ?Confirmed ?Type No Home Medications 05/13/24 05/13/24 History Allergies Allergy/AdvReac Type Severity Reaction Status Date / Time No Known Allergies Allergy Verified 11/16/23 13:40 Vital Signs Vital Signs - 24 hr 05/13/24 05:09 05/13/24 05:15 05/13/24 05:15 Temperature 99.2 F Pulse Rate 104 H 107 H Respiratory Rate 15 Blood Pressure 158/106 H Pulse Oximetry 98 97 Oxygen Delivery Room Air Room Air 05/13/24 07:15 05/13/24 07:30 05/13/24 07:45 Temperature Pulse Rate 104 H 105 H 105 H Respiratory Rate 19 18 17 Blood Pressure 154/111 H 147/110 H 133/105 H Pulse Oximetry 94 92 94 Oxygen Delivery 05/13/24 08:00 05/13/24 08:00 05/13/24 08:00 Temperature 97.4 F L Pulse Rate 106 H 101 H Respiratory Rate 16 18 Blood Pressure 139/109 H 139/109 H Pulse Oximetry 96 96 Oxygen Delivery Room Air 05/13/24 08:00 05/13/24 08:30 05/13/24 09:00 Temperature Pulse Rate 99 99 99 Respiratory Rate 17 17 Blood Pressure 143/111 H 138/112 H Pulse Oximetry 97 97 Oxygen Delivery 05/13/24 09:30 05/13/24 10:00 05/13/24 10:00 Temperature Pulse Rate 100 94 95 Respiratory Rate 18 16 Blood Pressure 149/107 H 139/117 H Pulse Oximetry 97 96 Oxygen Delivery 05/13/24 10:30 05/13/24 11:30 05/13/24 12:00 Temperature 97.3 F L Pulse Rate 93 85 87 Respiratory Rate 21 H 17 21 H Blood Pressure 114/91 H 125/99 H 104/80 Pulse Oximetry 94 96 94 Oxygen Delivery Exam 2 Narrative: General: Pleasant gentleman in no acute distress HEENT:? Pupils equal and reactive, sclera is clear, missing some front teeth Neck:? Supple Respiratory:? Clear to auscultation bilaterally, no wheezing, adequate air entry Cardiac:? S1-S2 normal, regular rate and rhythm Abdomen:? Soft, nontender, protuberant, nondistended, normoactive bowel sounds Extremities:? No edema, palpable pedal pulses, right groin site with pressure dressing Neuro:? A awake, alert, oriented, nonfocal Skin:? No skin lesions noted Psych:? Normal mentation and affect Results Labs 05/13/24 05:21 05/13/24 05:21 Labs: Short CBC 05/13/24 Range/Units 05:21 WBC 9.8 (4.5-10.0) K/mm3 Hgb 16.5 (14.0-18.0) g/dL Hct 48.8 (42.0-52.0) % Plt Count 293 (150-375) k/mm3 BMP 05/13/24 05:21 Sodium 138 Potassium 3.9 Chloride 102 Carbon Dioxide 28 BUN 15 Creatinine 1.04 Glucose 131 H Calcium 9.1 Cardiac Enzymes 05/13/24 05/13/24 Range/Units 05:21 08:25 Troponin I 0.034 1.600 H* D (0.000-0.034) ng/mL Liver Function 05/13/24 Range/Units 05:21 Total Bilirubin 0.4 (0.2-1.3) mg/dL AST 31 (17-59) U/L ALT 43 (6-50) U/L Alkaline Phosphatase 127 H (38-126) U/L Albumin 4.2 (3.5-5.1) g/dL Quality VTE Prophylaxis VTE prophylaxis: mechanical ordered Hospitalist MIPS Advance Care Plan I have confirmed that the patient's Advanced Care Plan is present, code status is documented, or surrogate decision maker is listed in patient medical record.: Yes Medication Reconciliation I have utilized all available resources to obtain, update and review the patients current medications (includes all prescriptions, OTC, herbals, cannabis, and nutritional supplements).: Yes
[2024-05-13 15:15] LABS: MRSA (PCR) NOT DETECTED (NOT DETECTE)
--- NOTE | 2024-05-13 15:31 | ADMGEN ---
This patient, Edwin Ruano, was admitted to Intensive Care Unit-5 at 0707. Patient/family oriented to hospital policies and general routines including ID bracelet, bed and alarms, visiting hours, pain management, procedures, bathroom and other care routines, personal items, smoking policy, room service/diet, and visiting hours. Information on how to activate the Rapid Response Team has been discussed. Patient/Family are encouraged to report perceived risks to care and to ask questions if they do not understand what they are told or what they should do.
[2024-05-13] MEDS: TICAGRELOR 90 MG TABLET PO (17:14)
[2024-05-14] VITALS (15 sets, daily range): BP systolic 107–126; BP diastolic 75–99; PULSE 88–198; RESP 16–28; TEMP 36.6–37; O2SAT 94–97
--- NOTE | 2024-05-14 | ECHO_ITS ---
Patient Info Name: Edwin Ruano Age: 43 years : 1980 Gender: Male Ht: 72 in Wt: 231 lbs BSA: 2.33 m2 HR: 104 bpm BP: 107 / 76 mmHg Technical Quality: Poor Exam Date: 05/14/2024 8:58 AM Exam Location: Echo Lab Patient Status: Inpatient Admit Date: 05/13/2024 Staff Ordering Physician: Gene Yañez MD Route Sales Person: Amisha Mead RDCS Attending Provider: Gene Yañez MD Exam Type: CA echo dop color flow w con Study Info Indications - ANTERIOR TX Complete two-dimensional, color flow and Doppler transthoracic echocardiogram is performed with contrast to opacify the left ventricle and to improve the deliniation of the left ventricle endocardial borders. Contrast/Agitated Saline Contrast/Ag. Saline: Definity Amount: 2.00 ml Existing IV Access: Yes Reason for Poor Study: poor echocardiographic windows Summary 1. Left ventricular systolic function is normal, estimated at 30-35%. 2. Left ventricular chamber dimension is mildly enlarged. 3. There is mildly increased left ventricular wall thickness. 4. The left ventricular diastolic function is abnormal. Left Ventricle Left ventricular chamber dimension is mildly enlarged. Left ventricular systolic function is normal, estimated at 30-35%. There is mildly increased left ventricular wall thickness. Left ventricular septal wall motion is normal. The left ventricular diastolic function is abnormal. Right Ventricle Right ventricular chamber dimension is normal. Right ventricular systolic function is normal. Left Atria Left atrial chamber dimension is normal. Right Atria Right atrial chamber dimension is normal. Aortic Valve The aortic valve is trileaflet. There is no aortic valve sclerosis. There is no aortic valve stenosis. There is no aortic valve regurgitation. Pulmonic Valve The pulmonic valve is normal. There is no pulmonic valve stenosis. There is no pulmonic regurgitation. Mitral Valve The mitral valve has normal leaflets. There is no mitral valve stenosis. There is no mitral valve regurgitation. Tricuspid Valve The tricuspid valve leaflets are normal. There is no significant tricuspid valve stenosis. There is no tricuspid valve regurgitation. Pericardium/Pleural The pericardium appears normal. There is no pericardial effusion. Inferior Vena Cava Normal inferior vena cava with >50% collapse upon inspiration consistent with normal right atrial pressure, 10 mmHg. Aorta The aortic root size at the sinus of Valsalva is normal. The prox ascending aorta size is normal. Left Ventricular Outflow Tract Name Value Normal LVOT 2D LVOT Diameter 2.36 cm LVOT Doppler LVOT Peak Gradient 2 mmHg LVOT Mean Gradient 1 mmHg LVOT VTI 10.25 cm LVOT VTI/AV VTI Ratio 0.46 LVOT Stroke Volume 44.73 ml LVOT CO 4.57 l/min LVOT CI 1.96 L/min/m2 Pulmonic Valve Name Value Normal RVOT Doppler RVOT Peak Gradient 2 mmHg PV Doppler PV Peak Gradient 2 mmHg Mitral Valve Name Value Normal MV Doppler MV Decel [place] 1,440.88 cm/s2 MV PHT 0 s MV Area (PHT) 11.41 cm2 4.00-5.00 MV Diastolic Function MV E Peak Velocity 95.76 cm/s MV A Peak Velocity 1.17 cm/s MV E/A 82.14 MV Decel Time 0 s MV Annular TDI MV E/e' (Septal) 12.05 <=8.00 MV E/e' (Lateral) 11.72 <=8.00 MV E/e' (Average) 11.88 Tricuspid Valve Name Value Normal Estimated PAP/RSVP RA Pressure 10 mmHg <=5 Aorta Name Value Normal Ascending Aorta Ao Root Diameter (MM) 3.61 cm Ao Root Diam Index (MM) 1.55 cm/m2 Aortic Valve Name Value Normal AV Doppler AV Peak Velocity 133.66 cm/s AV Peak Gradient 7 mmHg AV Mean Gradient 4 mmHg AV VTI 22.43 cm AV Area (Cont Eq VTI) 1.99 cm2 >=3.00 AV Area (Cont Eq Daljit) 2.09 cm2 AV Regurgitation 2D LVOT Area 4.37 cm2 Ventricles Name Value Normal LV Dimensions 2D/MM IVS Diastolic Thickness (2D) 1.35 cm 0.60-1.00 LVID Diastole (2D) 5.67 cm 4.20-5.80 LVIW Diastolic Thickness (2D) 1.38 cm 0.60-1.00 LVID Systole (2D) 4.40 cm 2.50-4.00 LVOT Diameter 2.36 cm LV Mass (2D Cubed) 341.72 g 88.00-224.00 LV Mass Index (2D Cubed) 0.01 g/cm2 0.00-0.01 Relative Wall Thickness (2D) 0.49 LV Fractional Shortening/Ejection Fraction 2D/MM LV Fractional Shortening (2D) 24 % 25-43 LV EF (2D Teicholz) 47 % 52-72 LV Diastolic Volume (4C MOD) 123.55 ml LV EF (4C MOD) 39 % LV Diastolic Volume (2C MOD) 148.31 ml LV EF (2C MOD) 33 % LV Diastolic Volume (BP MOD) 137.32 ml 62.00-150.00 LV Diastolic Volume Index (BP MOD) 0.06 l/m2 0.03-0.07 LV Systolic Volume (BP MOD) 86.97 ml 21.00-61.00 LV Systolic Volume Index (BP MOD) 0.04 l/m2 0.01-0.03 LV EF (BP MOD) 37 % 52-72 LV Diastolic Length (4C) 9.29 cm LV Systolic Length (4C) 7.97 cm LV Stroke Volume (4C MOD) 47.74 ml Atria Name Value Normal LA Dimensions LA Dimension (MM) 5.51 cm 3.00-4.10 LA Volume (4C A-L) 63.39 ml LA Volume (BP A-L) 62.99 ml RA Dimensions RA Area (4C) 18.41 cm2 <=18.00 Report Signatures
[2024-05-14] MEDS: TICAGRELOR 90 MG TABLET PO ×2 (05:19→18:18)
[2024-05-14 05:23] LABS: Basophils Absolute Auto 0.1 K/mm3 (0.0-0.1); Basophils Percent Auto 0.6 % (0.2-1.2); Eosinophils Absolute Auto 0.3 K/mm3 (0-0.3); Eosinophils Percent Auto 2.3 % (0-4.4); Hematocrit 44.4 % (42.0-52.0); Hemoglobin 15.2 g/dL (14.0-18.0); Immature Granulocyte Absolute 0.04 K/mm3 (0.00-0.031); Immature Granulocyte Percent A 0.3 % (0-0.5); Lymphocytes Absolute Auto 2.35 K/mm3 (0.9-3.2); Lymphocytes Percent Auto 16.7 % (18.3-44.2); Mean Corpuscular HGB Conc 34.2 g/dl (32-36); Mean Corpuscular Hemoglobin 29.3 pg (26-34); Mean Corpuscular Volume 85.5 fl (80-100); Mean Platelet Volume 8.8 fl (7.4-10.4); Monocytes Absolute Auto 0.9 K/mm3 (0.1-0.6); Monocytes Percent Auto 6.3 % (2.6-8.5); Neutrophils Absolute Auto 10.4 K/mm3 (1.3-6.7); Neutrophils Percent Auto 73.8 % (45.5-73.1); Platelet Count Result 289 k/mm3 (150-375); Red Blood Count 5.19 M/mm3 (4.6-6.20); Red Cell Distribution Width 13.3 % (11.5-14.5); White Blood Count 14.1 K/mm3 (4.5-10.0)
[2024-05-14 05:50] LABS: Alanine Aminotransferase 37 U/L (6-50); Albumin Level 3.6 g/dL (3.5-5.1); Alkaline Phosphatase 110 U/L (38-126); Anion Gap 9 mmol/L (4-12); Aspartate Amino Transferase 87 U/L (17-59); Bilirubin,Total 0.6 mg/dL (0.2-1.3); Blood Urea Nitrogen 13 mg/dL (9-20); Carbon Dioxide 24 mmol/L (22-30); Chloride 103 mmol/L (98-107); Estimated CRCL calculation 112 ml/min; Estimated Glomerular Filt Rate > 60; Glucose 124 mg/dL (65-110); Magnesium 1.9 mg/dL (1.6-2.3); Phosphorus 3.2 mg/dL (2.5-4.5); Sodium 136 mmol/L (137-145)
[2024-05-14] MEDS: ALPRAZolam (*CRX) 0.5 MG TABLET PO (08:42)
[2024-05-14] MEDS: ATORVASTATIN 40 MG TABLET 80 MG PO (08:42)
[2024-05-14] MEDS: METOPROLOL TARTRATE 25 MG TABLET PO ×2 (08:42→09:43)
[2024-05-14] MEDS: ASPIRIN 81 MG ENTERIC TABLET PO (08:42)
--- NOTE | 2024-05-14 08:43 | PM.PNCARD ---
Progress Note: A&P Assessment and Plan (1) ST elevation (STEMI) myocardial infarction involving left anterior descending coronary artery: Code(s): I21.02 - ST elevation (STEMI) myocardial infarction involving left anterior descending coronary artery Status: Acute (2) Tobacco abuse: Code(s): Z72.0 - Tobacco use Status: Acute (3) Hyperlipidemia: Code(s): E78.5 - Hyperlipidemia, unspecified Status: Acute (4) Methamphetamine abuse: Code(s): F15.10 - Other stimulant abuse, uncomplicated Status: Acute Plan -Anterior STEMI status post PCI to hazy 80 to 90 % prox LAD stenosis with a 4.5 x 15 mm [employer] [place] VIOLET -Nonobstructive CAD with 50-60% stenosis in the LCX -cardiomyopathy with LV ejection fraction of 30-35% -hyperlipidemia -methamphetamine use -tobacco use Plan: 1. Continue DAPT with aspirin and ticagrelor for at least 1 year post PCI. Then continue aspirin 81 mg daily indefinitely 2. Continue statin 3. Increase dose of metoprolol to 50 mg b.i.d. to target heart rate less than 90 bpm 4. Add guideline directed medical therapy for cardiomyopathy including TEJINDER inhibitor/ARB, SGLT 2 inhibitor, spironolactone as blood pressure tolerates 5. Check and replace electrolytes as needed keeping potassium greater than 4 and magnesium greater than 2 6. Repeat TTE in 40 days post revascularization- if LVEF is less than 35%, then EP consult for ICD placement 7. Cardiac rehab in 1 month 8. Counseled about smoking cessation Subjective Date/time seen: 05/14/24 08:43 Interval history: 43-year-old male with tobacco, methamphetamine abuse presented with chest pain secondary to anterior STEMI. He he underwent emergent coronary catheterization which showed a hazy 80-90% stenosis of the proximal LAD (infarct-related vessel) status post IVUS guided PCI with a 4.5 x 15 mm [employer] [place] VIOLET. Catheterization also showed 50-60% stenosis in the mid LCX. LVEF was 50% with hypokinetic mid to distal anterior and apical segment. Interval history: The patient is doing well without any chest pain, shortness of breath, dizziness, lightheadedness, nausea, emesis, abdominal pain, bleeding. He is tachycardic with heart rate in the 110s at rest. Workup: TTE: Summary 1. Left ventricular systolic function is normal, estimated at 30-35%. 2. Left ventricular chamber dimension is mildly enlarged. 3. There is mildly increased left ventricular wall thickness. 4. The left ventricular diastolic function is abnormal. Review of Systems Review of Systems: A complete review of systems was performed and negative other than those mentioned in the HPI Exam Narrative: General: Alert oriented x3, no acute distress Neck: Supple, JVD + Chest: Bilaterally clear to auscultation, no rales or rhonchi Cardiac: S1, S2 +, regular rate, regular rhythm, no murmurs or rubs Extremities: Bilateral lower extremity edema 1+, no skin rash Neurologic: Alert and oriented x3, no focal neurological deficits Objective Data Vital Signs Vital Signs: Vital Signs - 24 hr 05/13/24 09:00 05/13/24 09:30 05/13/24 10:00 Temperature Pulse Rate 99 100 94 Respiratory Rate 17 18 Blood Pressure 138/112 H 149/107 H Pulse Oximetry 97 97 Oxygen Delivery 05/13/24 10:00 05/13/24 10:30 05/13/24 11:30 Temperature Pulse Rate 95 93 85 Respiratory Rate 16 21 H 17 Blood Pressure 139/117 H 114/91 H 125/99 H Pulse Oximetry 96 94 96 Oxygen Delivery 05/13/24 12:00 05/13/24 12:00 05/13/24 12:00 Temperature 36.3 C L Pulse Rate 87 88 Respiratory Rate 21 H Blood Pressure 104/80 Pulse Oximetry 94 Oxygen Delivery Room Air 05/13/24 12:30 05/13/24 14:00 05/13/24 14:00 Temperature Pulse Rate 82 99 92 Respiratory Rate 20 19 Blood Pressure 111/80 108/83 Pulse Oximetry 95 98 Oxygen Delivery 05/13/24 16:00 05/13/24 16:00 05/13/24 16:00 Temperature 36.3 C L Pulse Rate 100 101 H Respiratory Rate 20 Blood Pressure 127/95 H Pulse Oximetry 96 Oxygen Delivery Room Air 05/13/24 18:00 05/13/24 18:00 05/13/24 20:00 Temperature 37.0 C Pulse Rate 104 H 103 H 109 H Respiratory Rate 18 23 H Blood Pressure 136/105 H 118/79 Pulse Oximetry 97 96 Oxygen Delivery 05/13/24 20:00 05/13/24 20:00 05/13/24 20:04 Temperature Pulse Rate 109 H 109 H Respiratory Rate Blood Pressure Pulse Oximetry Oxygen Delivery Room Air 05/13/24 21:30 05/13/24 21:36 05/13/24 22:00 Temperature Pulse Rate 114 H 114 H 109 H Respiratory Rate 20 Blood Pressure 135/95 H Pulse Oximetry 96 Oxygen Delivery 05/13/24 22:00 05/13/24 23:37 05/14/24 00:00 Temperature Pulse Rate 110 H 105 H Respiratory Rate 20 Blood Pressure 136/90 Pulse Oximetry 93 Oxygen Delivery Room Air 05/14/24 00:00 05/14/24 02:00 05/14/24 02:00 Temperature 36.9 C Pulse Rate 105 H 98 97 Respiratory Rate 28 H 17 Blood Pressure 123/87 124/81 Pulse Oximetry 95 96 Oxygen Delivery 05/14/24 04:00 05/14/24 04:00 05/14/24 04:00 Temperature 36.9 C Pulse Rate 104 H 104 H Respiratory Rate 22 H Blood Pressure 107/76 Pulse Oximetry 94 Oxygen Delivery Room Air 05/14/24 06:00 05/14/24 06:00 Temperature Pulse Rate 107 H 105 H Respiratory Rate 20 Blood Pressure 111/99 H Pulse Oximetry 96 Oxygen Delivery Intake/Output Intake/Output: Intake & Output 05/11/24 05/12/24 05/13/24 05/14/24 23:59 23:59 23:59 23:59 Intake Total 720 400 Output Total 750 200 Balance -30 200 Meds/Results Medications: Active Medications Generic Name Dose Route Start Last Admin Trade Name Freq PRN Reason Stop Dose Admin Aspirin 81 mg 05/14/24 09:00 Aspirin 81 Mg Enteric Tablet PO QAM [facility] Atorvastatin Calcium 80 mg 05/13/24 09:00 05/13/24 09:04 Atorvastatin 40 Mg Tablet PO 80 mg DAILY JAUN Administration Metoprolol Tartrate 25 mg 05/14/24 09:00 Metoprolol Tartrate 25 Mg Tablet PO Q12HR [facility] Perflutren Lipid Microsphere 0 ml 05/13/24 07:17 Perflutren Lipid Microspheres 1.5 Ml Vial Diluted To 10 Ml Total Volume IV PUSH 05/16/24 07:17 ONCE PRN adequate visualization Protocol Ticagrelor 90 mg 05/13/24 18:00 05/14/24 05:19 Ticagrelor 90 Mg Tablet PO 90 mg Q12H JAUN Administration Labs Labs: Laboratory Results - last 24 hr 05/13/24 05/13/24 05/13/24 05:21 08:25 14:00 WBC RBC Hgb Hct MCV MCH MCHC RDW Plt Count MPV Immature Gran % (Auto) Neut % (Auto) Lymph % (Auto) [place] % (Auto) Eos % (Auto) Baso % (Auto) Lymph # (Auto) [place] # (Auto) Eos # (Auto) Baso # (Auto) Abs Immat Gran (auto) Absolute Neuts (auto) Absolute Nucleated RBC Nucleated RBC % Sodium Potassium Chloride Carbon Dioxide Anion Gap BUN Creatinine Estim Creat Clear Calc Estimated GFR Glucose Hemoglobin A1c 6.2 H Calcium Phosphorus Magnesium Total Bilirubin AST ALT Alkaline Phosphatase Troponin I 1.600 H* D Total Protein Albumin Nasal MRSA (PCR) Not detected Ethyl Alcohol < 10 05/14/24 05:12 WBC 14.1 H RBC 5.19 Hgb 15.2 Hct 44.4 MCV 85.5 MCH 29.3 MCHC 34.2 RDW 13.3 Plt Count 289 MPV 8.8 Immature Gran % (Auto) 0.3 Neut % (Auto) 73.8 H Lymph % (Auto) 16.7 L [place] % (Auto) 6.3 Eos % (Auto) 2.3 Baso % (Auto) 0.6 Lymph # (Auto) 2.35 [place] # (Auto) 0.9 H Eos # (Auto) 0.3 Baso # (Auto) 0.1 Abs Immat Gran (auto) 0.04 H Absolute Neuts (auto) 10.4 H Absolute Nucleated RBC 0.000 Nucleated RBC % 0.0 Sodium 136 L Potassium 4.0 Chloride 103 Carbon Dioxide 24 Anion Gap 9 BUN 13 Creatinine 0.82 Estim Creat Clear Calc 112 Estimated GFR > 60 Glucose 124 H Hemoglobin A1c Calcium 8.0 L Phosphorus 3.2 Magnesium 1.9 Total Bilirubin 0.6 AST 87 H ALT 37 Alkaline Phosphatase 110 Troponin I Total Protein 7.0 Albumin 3.6 Nasal MRSA (PCR) Ethyl Alcohol
[2024-05-14] MEDS: PERFLUTREN LIPID MICROSPHERES 1.5 ML VIAL DILUTED TO 10 ML TOTAL VOLUME IV PUSH (09:25)
--- NOTE | 2024-05-14 09:29 | WPDINTPN ---
Progress Note: A&P Assessment and Plan (1) ST elevation (STEMI) myocardial infarction involving left anterior descending coronary artery: Code(s): I21.02 - ST elevation (STEMI) myocardial infarction involving left anterior descending coronary artery Status: Acute Assessment and Plan: 05/13/2024: Patient presented with chest pain, shortness of breath, and dizziness. EMS EKG showed ST elevation in V2 to V4. 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 Patient also has 50-60% stenosis of mid distal left circumflex and 30-40% stenosis of distal RCA -continue aspirin, statin, Brilinta, metoprolol -cardiology following the patient -echocardiogram has been ordered -cardiology increased metoprolol (2) Tobacco abuse: Code(s): Z72.0 - Tobacco use Status: Acute Assessment and Plan: Counseled patient on tobacco cessation (3) Methamphetamine abuse: Code(s): F15.10 - Other stimulant abuse, uncomplicated Status: Acute Assessment and Plan: Counseled patient on methamphetamine use (4) Hyperlipidemia: Code(s): E78.5 - Hyperlipidemia, unspecified Status: Acute Assessment and Plan: Continue high-dose statin Plan DVT prophylaxis: Status post cardiac catheterization Stress ulcer prophylaxis: Not indicated Nutrition: Heart healthy diet Code Status: Full code Critical Care Time Spent: 31 minutes Due to a high probability of clinically significant, life threatening deterioration, the patient required my highest level of preparedness to intervene emergently and I personally spent this critical care time directly and personally managing the patient. This critical care time included obtaining a history; examining the patient; pulse oximetry; ordering and review of studies; arranging urgent treatment with development of a management plan; evaluation of patient's response to treatment; frequent reassessment; and discussions with other providers. It was exclusive of separately billable procedures and treating other patients and teaching time. Please see Assessment and Plan section and the rest of the note for further information on patient assessment and treatment This dictation may have been done utilizing a voice recognition system. Attempts have been made to correct errors. However, there may be uncorrected grammatical, spelling, and recognitions errors present. Subjective Date/time seen: 05/14/24 09:29 Interval history: Reason for consult: STEMI status post VIOLET x1 to proximal LAD, EF of 50%, LVEDP of 29mmHg 05/14: Pt seen and examined, complaining of anxiety. Denies chest pain, SOB, Nausea/Vomiting. Hemodynamically stable. adequate UO, afebrile Review of Systems Review of Systems: All systems reviewed & are unremarkable except as noted in HPI and below Exam Narrative: General: Pleasant gentleman in no acute distress HEENT:? Pupils equal and reactive, sclera is clear, missing some front teeth Neck:? Supple Respiratory:? Clear to auscultation bilaterally, no wheezing, adequate air entry Cardiac:? S1-S2 normal, regular rate and rhythm Abdomen:? Soft, nontender, protuberant, nondistended, normoactive bowel sounds Extremities:? No edema, palpable pedal pulses, right groin site with pressure dressing Neuro:? A awake, alert, oriented, nonfocal Skin:? No skin lesions noted Psych:? Anxious Objective Data Vital Signs Vital Signs: Vital Signs - 24 hr 05/13/24 09:30 05/13/24 10:00 05/13/24 10:00 Temperature Pulse Rate 100 94 95 Respiratory Rate 18 16 Blood Pressure 149/107 H 139/117 H Pulse Oximetry 97 96 Oxygen Delivery 05/13/24 10:30 05/13/24 11:30 05/13/24 12:00 Temperature 97.3 F L Pulse Rate 93 85 87 Respiratory Rate 21 H 17 21 H Blood Pressure 114/91 H 125/99 H 104/80 Pulse Oximetry 94 96 94 Oxygen Delivery 05/13/24 12:00 05/13/24 12:00 05/13/24 12:30 Temperature Pulse Rate 88 82 Respiratory Rate 20 Blood Pressure 111/80 Pulse Oximetry 95 Oxygen Delivery Room Air 05/13/24 14:00 05/13/24 14:00 05/13/24 16:00 Temperature 97.3 F L Pulse Rate 99 92 100 Respiratory Rate 19 20 Blood Pressure 108/83 127/95 H Pulse Oximetry 98 96 Oxygen Delivery 05/13/24 16:00 05/13/24 16:00 05/13/24 18:00 Temperature Pulse Rate 101 H 104 H Respiratory Rate Blood Pressure Pulse Oximetry Oxygen Delivery Room Air 05/13/24 18:00 05/13/24 20:00 05/13/24 20:00 Temperature 98.6 F Pulse Rate 103 H 109 H Respiratory Rate 18 23 H Blood Pressure 136/105 H 118/79 Pulse Oximetry 97 96 Oxygen Delivery Room Air 05/13/24 20:00 05/13/24 20:04 05/13/24 21:30 Temperature Pulse Rate 109 H 109 H 114 H Respiratory Rate 20 Blood Pressure 135/95 H Pulse Oximetry 96 Oxygen Delivery 05/13/24 21:36 05/13/24 22:00 05/13/24 22:00 Temperature Pulse Rate 114 H 109 H 110 H Respiratory Rate 20 Blood Pressure 136/90 Pulse Oximetry 93 Oxygen Delivery 05/13/24 23:37 05/14/24 00:00 05/14/24 00:00 Temperature 98.5 F Pulse Rate 105 H 105 H Respiratory Rate 28 H Blood Pressure 123/87 Pulse Oximetry 95 Oxygen Delivery Room Air 05/14/24 02:00 05/14/24 02:00 05/14/24 04:00 Temperature Pulse Rate 98 97 Respiratory Rate 17 Blood Pressure 124/81 Pulse Oximetry 96 Oxygen Delivery Room Air 05/14/24 04:00 05/14/24 04:00 05/14/24 06:00 Temperature 98.4 F Pulse Rate 104 H 104 H 107 H Respiratory Rate 22 H Blood Pressure 107/76 Pulse Oximetry 94 Oxygen Delivery 05/14/24 06:00 05/14/24 08:00 05/14/24 08:00 Temperature Pulse Rate 105 H 105 H Respiratory Rate 20 Blood Pressure 111/99 H Pulse Oximetry 96 96 Oxygen Delivery Room Air 05/14/24 08:00 05/14/24 08:42 Temperature 98.6 F Pulse Rate 106 H 115 H Respiratory Rate 20 Blood Pressure 115/82 Pulse Oximetry 96 Oxygen Delivery Intake/Output Intake/Output: Intake & Output 05/11/24 05/12/24 05/13/24 05/14/24 23:59 23:59 23:59 23:59 Intake Total 720 400 Output Total 750 400 Balance -30 0 Meds/Results Medications: Active Medications Generic Name Dose Route Start Last Admin Trade Name Freq PRN Reason Stop Dose Admin Aspirin 81 mg 05/14/24 09:00 05/14/24 08:42 Aspirin 81 Mg Enteric Tablet PO 81 mg QAM JAUN Administration Atorvastatin Calcium 80 mg 05/13/24 09:00 05/14/24 08:42 Atorvastatin 40 Mg Tablet PO 80 mg DAILY JAUN Administration Metoprolol Tartrate 25 mg 05/14/24 09:00 05/14/24 08:42 Metoprolol Tartrate 25 Mg Tablet PO 25 mg Q12HR JAUN Administration Perflutren Lipid Microsphere 0 ml 05/13/24 07:17 Perflutren Lipid Microspheres 1.5 Ml Vial Diluted To 10 Ml Total Volume IV PUSH 05/16/24 07:17 ONCE PRN adequate visualization Protocol Ticagrelor 90 mg 05/13/24 18:00 05/14/24 05:19 Ticagrelor 90 Mg Tablet PO 90 mg Q12H JAUN Administration Labs Labs: Laboratory Results - last 24 hr 05/13/24 05/13/24 05/14/24 05:21 14:00 05:12 WBC 14.1 H RBC 5.19 Hgb 15.2 Hct 44.4 MCV 85.5 MCH 29.3 MCHC 34.2 RDW 13.3 Plt Count 289 MPV 8.8 Immature Gran % (Auto) 0.3 Neut % (Auto) 73.8 H Lymph % (Auto) 16.7 L [place] % (Auto) 6.3 Eos % (Auto) 2.3 Baso % (Auto) 0.6 Lymph # (Auto) 2.35 [place] # (Auto) 0.9 H Eos # (Auto) 0.3 Baso # (Auto) 0.1 Abs Immat Gran (auto) 0.04 H Absolute Neuts (auto) 10.4 H Absolute Nucleated RBC 0.000 Nucleated RBC % 0.0 Sodium 136 L Potassium 4.0 Chloride 103 Carbon Dioxide 24 Anion Gap 9 BUN 13 Creatinine 0.82 Estim Creat Clear Calc 112 Estimated GFR > 60 Glucose 124 H Hemoglobin A1c 6.2 H Calcium 8.0 L Phosphorus 3.2 Magnesium 1.9 Total Bilirubin 0.6 AST 87 H ALT 37 Alkaline Phosphatase 110 Total Protein 7.0 Albumin 3.6 Nasal MRSA (PCR) Not detected Quality VTE Prophylaxis VTE prophylaxis: mechanical ordered
[2024-05-14] MEDS: ACETAMINOPHEN 325 MG TABLET 650 MG PO ×2 (12:00→20:41)
--- NOTE | 2024-05-14 13:10 | IVDEFINITY ---
Prior to administration of IV Definity the patient was educated on the risks and benefits of the imaging enhancing agent including potential adverse side effects. The patient verbalized understanding. Allergies were verified. No exclusion criteria were identified and at least one of the following inclusion criteria were met: 1) physician request, 2) patient technically difficult to image (per the [place] [employer]ocardi[employer] guidelines of two or more segments not discernable within the apical view), or 3) questionable left ventricular function. ?
--- NOTE | 2024-05-14 14:46 | PCCARD ---
Spoke with Edwin at bedside. Overview of the program given. Verbalized understanding. He was not sure what insurance he has currently. Explained after his hospital follow up he may have the official order to attend. 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 Explained our coordinator will be in touch after his dc follow up.
[2024-05-14] MEDS: METOPROLOL TARTRATE 50 MG TAB PO (20:41)
[2024-05-15] VITALS (7 sets, daily range): BP systolic 106–118; BP diastolic 77–83; PULSE 89–114; RESP 19–23; TEMP 36.6–36.8; O2SAT 93–96
[2024-05-15] MEDS: ALPRAZolam (*CRX) 0.5 MG TABLET PO (00:23)
[2024-05-15] MEDS: ATORVASTATIN 40 MG TABLET 80 MG PO (07:57)
[2024-05-15] MEDS: TICAGRELOR 90 MG TABLET PO (07:58)
[2024-05-15] MEDS: METOPROLOL TARTRATE 50 MG TAB PO (07:58)
[2024-05-15] MEDS: ASPIRIN 81 MG ENTERIC TABLET PO (07:58)
[2024-05-15] MEDS: EMPAGLIFLOZIN 10 MG TABLET PO (10:08)
--- NOTE | 2024-05-15 11:11 | P.DS_ITS ---
DS: Admitting Diagnosis Discharge Date 05/15/2024 Admitting Diagnosis Anterior STEMI DS: Discharge Diagnosis Discharge Diagnosis (1) ST elevation (STEMI) myocardial infarction involving left anterior descending coronary artery: Code(s): I21.02 - ST elevation (STEMI) myocardial infarction involving left anterior descending coronary artery Status: Acute (2) Hyperlipidemia: Code(s): E78.5 - Hyperlipidemia, unspecified Status: Acute (3) Methamphetamine abuse: Code(s): F15.10 - Other stimulant abuse, uncomplicated Status: Acute (4) Tobacco abuse: Code(s): Z72.0 - Tobacco use Status: Acute (5) Cardiomyopathy: Code(s): I42.9 - Cardiomyopathy, unspecified Status: Acute Plan Anterior STEMI status post PCI to 80% hazy lesion in proximal LAD; 60% stenosis in the left circumflex artery Cardiomyopathy with LVEF 30-35 % secondary to anterior STEMI Hyperlipidemia Tobacco use Methamphetamine abuse Plan: Continue aspirin and ticagrelor for 1 year. Then stop ticagrelor and continue aspirin 81 mg daily Continue statin. Target LDL less than 70 Guideline directed medical therapy for cardiomyopathy- continue metoprolol; add empagliflozin 10 mg daily; add spironolactone; add Entresto as outpatient Advised patient to get a blood pressure cuff and check blood pressure daily before taking meds Cardiac rehab at 1 month Telegraphic Instrument Supervisor about smoking cessation Telegraphic Instrument Supervisor about stopping methamphetamine use TTE in 40 days post revascularization. If LVEFis less than 35%, then will need EP consult for ICD placement Follow-up with cardiology in 1 month DS: Summary Hospital Course Reason for hospitalization: Anterior STEMI Hospital Course: 43-year-old male with past medical history of hyperlipidemia, tobacco and methamphetamine use presented with chest pain secondary to anterior STEMI. He had an emergent cardiac catheterization which showed 80-90% hazy stenosis in the proximal LAD and 50-60% nonobstructive lesion in the left circumflex artery. He underwent PCI to proximal LAD with a 4.5 into 15 mm [employer] [place] VIOLET. Patient tolerated the procedure well. He will need DAPT therapy with aspirin and ticagrelor for 1 year post PCI after which he can stop ticagrelor and continue aspirin indefinitely. TTE post catheterization showed an LV ejection fraction of 30-35%. He was started on guideline directed medical therapy with metoprolol, empagliflozin, spironolactone, and will need Entresto added as an outpatient. He will continue on statin. His target LDL is less than 70. He was counseled about smoking cessation and stopping amphetamine use. He will need cardiac rehab in 1 month. Status at Discharge Cognitive/behavioral status at discharge: Patient doing well. Time Spent with Patient Time attestation: Total time spent providing and/or coordinating discharge services: Exam Narrative: General: Alert oriented x3, no acute distress Neck: Supple, JVD + Chest: Bilaterally clear to auscultation, no rales or rhonchi Cardiac: S1, S2 +, regular rate, regular rhythm, no murmurs or rubs Extremities: No pedal edema, no skin rash Neurologic: Alert and oriented x3, no focal neurological deficits Discharge Plan Discharge Attending physician on discharge: Madonna Le Discharging Clinician: Madonna Le Patient Disposition: Home, Self-Care Activity: other - see discharge instructions Diet: heart healthy Wound Care Instructions: other - see discharge instructions Discharge Instructions: [facility] [address] [place] [address] DISCHARGE INSTRUCTIONS - POST PCI Activity 1. No driving X 2 DAYS 2. No lifting, pushing or pulling more than 10 pounds for 1 week. 3. No strenuous exercise or activity (including sexual activity) until you are released to do so. 4. May shower but no tub baths or swimming pool for 1 week. Avoid commercial hot tubs. They are too hot. Medications DO NOT STOP YOUR MEDICATIONS ONLY YOUR PRESS BOX CUSTODIAN CAN STOP THE FOLLOWING MEDICATIONS - PLEASE CALL THE OFFICE WITH QUESTIONS. *Aspirin *Ticagrelor (Brilinta) *Atorvastatin *Lisinopril or ARB *Metoprolol tartrate or succinate *Clopidogrel (Plavix) *Prasugrel (Effient) Important Reminders 1. Keep your stent card in your wallet at all times 2. Follow a heart healthy diet paying extra attention to cholesterol and fats. 3. Stay hydrated. 4. If you have chest pain unrelieved by rest or nitroglycerin (if prescribed) call 911 immediately. 5. If you miss one dose of Brilinta (if prescribed) take a tablet at the next time due. If you miss 2 doses take a tablet when you remember and resume at the next time due. *For any other questions please call the office at [phone]. Office hours are 8AM 4:30PM Tuesday through Tuesday. Patient Instructions: Antibiotic Form Patient Language: Armenian Stand Alone Forms: General Discharge Information Follow-up/Referrals: Gene Yañez MD [Physician] - (in 4 weeks post discharge) Discharge Medications: New Brilinta 90 mg Tablet 90 mg PO Q12H 30 Days Qty: 60 11RF atorvastatin 40 mg Tablet 80 mg PO DAILY Qty: 60 12RF metoprolol tartrate 50 mg Tablet 50 mg PO Q12HR Qty: 120 6RF spironolactone 25 mg tablet 25 mg PO DAILY Qty: 60 6RF Jardiance 10 mg Tablet 10 mg PO DAILY Qty: 60 6RF aspirin 81 mg Tablet,Delayed Release (Dr/Ec) 81 mg PO QAM Qty: 60 0RF Brilinta 90 mg Tablet 90 mg PO Q12H Qty: 60 6RF spironolactone 25 mg tablet 25 mg PO DAILY Qty: 60 6RF Date of admission: 05/13/24 06:15 Primary Care Provider: UNKNOWN,DOCTOR Admitting Provider: Gene Yañez Attending physician on admission: Gene Yañez Condition: Stable
== END 2024-05-15 12:40 | disposition home or self-care (01) | DRG 174 ==
LOC: ANHED 05:22 → ANHICU 07:06
PROVIDERS: Internal Medicine; Admitting Provider Internal Medicine Cardiovascular Disease; Emergency Provider Emergency Medicine; Visit Provider Internal Medicine Interventional Cardiology
PROC: 4A023N7 Measurement of Cardiac Sampling and Pressure, Left Heart, Percutaneous Approach (ICD-10-PCS; CPT 93452; principal; 2024-05-13 05:15)
PROC: 027034Z Dilation of Coronary Artery, One Artery with Drug-eluting Intraluminal Device, Percutaneous Approach (ICD-10-PCS; 2024-05-13 05:15)
PROC: 027034Z Dilation of Coronary Artery, One Artery with Drug-eluting Intraluminal Device, Percutaneous Approach (ICD-10-PCS; 2024-05-13 05:15)
PROC: 027034Z Dilation of Coronary Artery, One Artery with Drug-eluting Intraluminal Device, Percutaneous Approach (ICD-10-PCS; 2024-05-13 05:15)
DX: I21.09 ST elevation (STEMI) myocardial infarction involving other coronary artery of anterior wall (principal); I25.10 Atherosclerotic heart disease of native coronary artery without angina pectoris; F17.210 Nicotine dependence, cigarettes, uncomplicated; F15.10 Other stimulant abuse, uncomplicated; E78.5 Hyperlipidemia, unspecified; I42.9 Cardiomyopathy, unspecified
CPT/HCPCS: 36415; 80053; 80061; 82077; 83036; 83735; 84100; 84484; 85025; 85610; 85730; 86850; 86900; 86901; 87641; 92978; 93005; 93458; 96374; 96375; 99285; A9270; C1725; C1753; C1760; C1769; C1874; C1887; C1894; C8929; C9606; G0269; J0583; J1644; J2003; J2250; J3010; J7030; J7040; Q9957

== ENCOUNTER 2024-09-26 11:58 | Emergency (ER) | payer OTHER, SELFPAY ==
--- NOTE | ~2024-09-26 | XR_ITS ---
XR hand RT min 3V 09/26/2024 13:30 Indication: Right hand pain Procedure: 3 views right hand Comparison: 07/31/2021 Findings: No fracture, subluxation or dislocation. No significant soft tissue abnormality. No foreign bodies. Impression: 1: No significant bone or joint abnormality. Reviewed, dictated and finalized at location A. Impression: 1: No significant bone or joint abnormality.
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
--- NOTE | ~2024-09-26 | XR_ITS ---
XR ankle LT min 3V, XR foot LT min 3V 09/26/2024 13:30 Indication: Left ankle and foot pain Procedure: 4 views left ankle, 4 views left foot Comparison: No prior studies for comparison. Findings: There is a comminuted intra-articular fracture first proximal phalanx extending to the MTP joint. There are mildly displaced oblique fractures of the second, third and fourth metatarsal necks. Lisfranc joint intact. Ankle mortise intact. Talar dome within normal limits. Impression: 1: Comminuted intra-articular fracture left first proximal phalanx extending proximally to the MTP lamont int. 2: Mild lateral displacement of oblique extra-articular fractures of the second, third and fourth met atarsal necks. Reviewed, dictated and finalized at location A. Impression: 1: Comminuted intra-articular fracture left first proximal phalanx extending pr oximally to the MTP joint. 2: Mild lateral displacement of oblique extra-articular fractures of the second , third and fourth metatarsal necks. Impression: 1: Comminuted intra-articular fracture left first proximal phalanx extending pr oximally to the MTP joint. 2: Mild lateral displacement of oblique extra-articular fractures of the second , third and fourth metatarsal necks.
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
[2024-09-26 12:03] VITALS: BP 152/110; PULSE 108; RESP 14; TEMP 36.1; O2SAT 97
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
== END 2024-09-26 14:50 | disposition home or self-care (01) ==
PROVIDERS: Emergency Provider Emergency Medicine
DX: S92.412A Displaced fracture of proximal phalanx of left great toe, initial encounter for closed fracture (principal); S92.322A Displaced fracture of second metatarsal bone, left foot, initial encounter for closed fracture; S92.332A Displaced fracture of third metatarsal bone, left foot, initial encounter for closed fracture; S92.342A Displaced fracture of fourth metatarsal bone, left foot, initial encounter for closed fracture; S60.512A Abrasion of left hand, initial encounter; S60.511A Abrasion of right hand, initial encounter; S50.812A Abrasion of left forearm, initial encounter; V27.41XA Electric (assisted) bicycle driver injured in collision with fixed or stationary object in traffic accident, initial encounter
CPT/HCPCS: 29515; 73130; 73562; 73610; 73630; 99284